=== PATIENT | male | born 1970 | race Caucasian/White ===

== ENCOUNTER 2016-12-24 06:59 | Emergency (ER) | payer BC ==
[2016-12-24 07:10] VITALS: BP 143/88
[2016-12-24] MEDS ORDERED: Ondansetron 4 MG/2 ML SDV IVPUSH ONE (07:23)
[2016-12-24] MEDS ORDERED: Sodium Chloride 0.9% 10 ML Syringe FLUSH PRN (07:23)
[2016-12-24] MEDS ORDERED: LORazepam 2 MG/ML MDV IVPUSH ONE (07:25)
[2016-12-24] MEDS ORDERED: Sodium Chloride 0.9% 1,000 ML IV SCH (07:30)
--- NOTE | 2016-12-24 10:03 | EDM.PDOCBH ---
ED HPI GENERAL MEDICAL PROBLEM - General Chief Complaint: Drug or Alcohol Abuse Stated Complaint: ALCOHOL DETOX Time Seen by Provider: 12/24/16 07:20 Source of Information: Reports: Patient History Limitations: Reports: No Limitations - History of Present Illness INITIAL COMMENTS - FREE TEXT/NARRATIVE: The patient presents with alcohol withdrawal. He is currently doing outpatient treatment for alcohol dependence with [facility]. He had a friend come visit him this weekend and he had a few drinks. He is coming in because he is withdrawing. He has the shakes. He has not drank since yesterday. He has nausea but no vomiting. He has no pain, fever or chills. He is on coumadin for a mechanical heart valve. Onset: Gradual Duration: Day(s): (2) Improves with: Reports: None Worsens with: Reports: None Associated Symptoms: Reports: Nausea/Vomiting. Denies: Chest Pain, Fever/Chills , Shortness of Breath - Related Data Allergies Allergy/AdvReac Type Severity Reaction Status Date / Time No Known Allergies Allergy Verified 12/24/16 07:09 Home Meds: Home Meds Metoprolol Tartrate 50 mg PO BID 11/23/15 [History] Warfarin [Coumadin] 4 mg PO DAILY 11/23/15 [History] Ondansetron [Zofran ODT] 4 mg PO Q6H PRN #20 tab.dis 12/24/16 [Rx] chlordiazePOXIDE [Librium] 50 mg PO TID #24 cap 12/24/16 [Rx] Past Medical History Cardiovascular History: Reports: Heart Valve Replacement Other Cardiovascular History: aortic stenosis, valvular heart disease, aortic regurgitation Other Respiratory History: lung cancer at age 3 Gastrointestinal History: Reports: Colon Polyp Other Gastrointestinal History: globus sensation Genitourinary History: Reports: Dialysis Other Genitourinary History: 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 Kidney was removed. Social & Family History - Tobacco Use Smoking Status *Q: Never Smoker Years of Tobacco use: 30 Packs/Tins Daily: 0.2 Used Tobacco, but Quit: Yes Month Tobacco Last Used: 2008 - Alcohol Use Days Per Week of Alcohol Use: 7 Number of Drinks Per Day: 3 Total Drinks Per Week: 21 - Recreational Drug Use Recreational Drug Use: No Drug Use in Last 12 Months: No Recreational Drug Type: Reports: Methamphetamine Recreational Drug Use Frequency: Not Used In Over 6 Months Recreational Drug Last Use: 2009 ED ROS GENERAL - Review of Systems Review Of Systems: See Below Constitutional: Reports: No Symptoms HEENT: Reports: No Symptoms Respiratory: Reports: No Symptoms Cardiovascular: Reports: No Symptoms Endocrine: Reports: No Symptoms GI/Abdominal: Reports: Nausea. Denies: Abdominal Pain, Vomiting : Reports: No Symptoms Musculoskeletal: Reports: No Symptoms Skin: Reports: No Symptoms Neurological: Reports: Other (Shakey) ED EXAM, BEHAVIORAL HEALTH - Physical Exam Exam: See Below Exam Limited By: No Limitations General Appearance: Alert, No Apparent Distress Ears: Normal External Exam Nose: Normal Inspection Head: Atraumatic, Normocephalic Neck: Normal Inspection Respiratory/Chest: No Respiratory Distress, Lungs Clear, Normal Breath Sounds Cardiovascular: Regular Rate, Rhythm, No Edema, Other (Cli) GI/Abdominal: Soft, Non-Tender, No Organomegaly, No Mass Back Exam: Normal Inspection Extremities: Normal Inspection Neurological: Alert, No Motor/Sensory Deficits, Oriented x 3 COURSE, BEHAVIORAL HEALTH COMP - Course Vital Signs: Last Vital Signs Temp 97.6 F 12/24/16 07:06 Pulse 110 H 12/24/16 07:06 Resp 16 12/24/16 07:06 BP 143/88 H 12/24/16 07:06 Pulse Ox 94 L 12/24/16 07:06 Orders, Labs, Meds: Active Orders 24 hr Category Date Time Status Cardiac Monitoring [RC] . DIRECTED Care 12/24/16 07:24 Active Peripheral IV Care [RC] . DIRECTED Care 12/24/16 07:24 Active Sodium Chloride 0.9% [Normal Saline] 1,000 ml Med 12/24/16 07:30 Active IV .BOLUS Sodium Chloride 0.9% [Saline Flush] Med 12/24/16 07:23 Active 10 ml FLUSH ASDIRECTED PRN ED Antiemetic Medication Reflex [OM.PC] Stat Oth 12/24/16 07:24 Ordered Peripheral IV Insertion Adult [OM.PC] Stat Oth 12/24/16 07:23 Ordered Medication Orders Sodium Chloride (Normal Saline) 1,000 mls @ 1,000 mls/hr IV .BOLUS SHERLY Last Admin: 12/24/16 07:37 Dose: 1,000 mls/hr Sodium Chloride (Saline Flush) 10 ml FLUSH ASDIRECTED PRN PRN Reason: Keep Vein Open Last Admin: 12/24/16 07:39 Dose: 10 ml Laboratory Tests 12/24/16 12/24/16 12/24/16 Range/Units 07:30 07:30 07:30 WBC 10.24 H (4.23-9.07) K/mm3 RBC 4.91 (4.63-6.08) M/mm3 Hgb 15.4 (13.7-17.5) gm/L Hct 44.1 (40.1-51.0) % MCV 89.8 (79.0-92.2) fl MCH 31.4 (25.7-32.2) pg MCHC 34.9 (32.2-35.5) g/dl RDW Std Deviation 47.0 H (35.1-43.9) fL Plt Count 272 (163-337) K/mm3 MPV 10.1 (9.4-12.3) fl Neut % (Auto) 68.3 H (34.0-67.9) % Lymph % (Auto) 19.1 L (21.8-53.1) % Casey % (Auto) 11.7 (5.3-12.2) % Eos % (Auto) 0.4 L (0.8-7.0) Baso % (Auto) 0.4 (0.1-1.2) % Neut # (Auto) 6.99 H (1.78-5.38) K/mm3 Lymph # (Auto) 1.96 (1.32-3.57) K/mm3 Casey # (Auto) 1.20 H (0.30-0.82) K/mm3 Eos # (Auto) 0.04 (0.04-0.54) K/mm3 Baso # (Auto) 0.04 (0.01-0.08) K/mm3 PT 121.1 H* (8.0-13.0) SECONDS INR 9.62 H* Sodium 141 (136-145) mEq/L Potassium 4.4 (3.5-5.1) mEq/L Chloride 99 (98-107) mEq/L Carbon Dioxide 30 (21-32) mEq/L Anion Gap 16.4 H (5-15) BUN 27 H (7-18) mg/dL Creatinine 1.4 H (0.7-1.3) mg/dL Est Cr Clr Drug Dosing 58.59 mL/min Estimated GFR (MDRD) 54 (>60) mL/min BUN/Creatinine Ratio 19.3 H (14-18) Glucose 103 (74-106) mg/dL Calcium 8.5 (8.5-10.1) mg/dL Total Bilirubin 1.2 H (0.2-1.0) mg/dL AST 79 H (15-37) U/L ALT 45 (16-63) U/L Alkaline Phosphatase 66 (46-116) U/L Total Protein 8.3 H (6.4-8.2) g/dl Albumin 4.0 (3.4-5.0) g/dl Globulin 4.3 gm/dL Albumin/Globulin Ratio 0.9 L (1-2) Lipase 87 (73-393) U/L Urine Opiates Screen (NEGATIVE) Ur Buprenorphine Scrn (NEGATIVE) Ur Oxycodone Screen (NEGATIVE) Urine Methadone Screen (NEGATIVE) Ur Propoxyphene Screen (NEGATIVE) Ur Barbiturates Screen (NEGATIVE) Ur Tricyclics Screen (NEGATIVE) Ur Phencyclidine Scrn (NEGATIVE) Ur Amphetamine Screen (NEGATIVE) U Methamphetamines Scrn (NEGATIVE) U Benzodiazepines Scrn (NEGATIVE) U Cocaine Metab Screen (NEGATIVE) U Marijuana (THC) Screen (NEGATIVE) Ethyl Alcohol 0.21 (0.00) gm% 12/24/16 Range/Units 08:50 WBC (4.23-9.07) K/mm3 RBC (4.63-6.08) M/mm3 Hgb (13.7-17.5) gm/L Hct (40.1-51.0) % MCV (79.0-92.2) fl MCH (25.7-32.2) pg MCHC (32.2-35.5) g/dl RDW Std Deviation (35.1-43.9) fL Plt Count (163-337) K/mm3 MPV (9.4-12.3) fl Neut % (Auto) (34.0-67.9) % Lymph % (Auto) (21.8-53.1) % Casey % (Auto) (5.3-12.2) % Eos % (Auto) (0.8-7.0) Baso % (Auto) (0.1-1.2) % Neut # (Auto) (1.78-5.38) K/mm3 Lymph # (Auto) (1.32-3.57) K/mm3 Casey # (Auto) (0.30-0.82) K/mm3 Eos # (Auto) (0.04-0.54) K/mm3 Baso # (Auto) (0.01-0.08) K/mm3 PT (8.0-13.0) SECONDS INR Sodium (136-145) mEq/L Potassium (3.5-5.1) mEq/L Chloride (98-107) mEq/L Carbon Dioxide (21-32) mEq/L Anion Gap (5-15) BUN (7-18) mg/dL Creatinine (0.7-1.3) mg/dL Est Cr Clr Drug Dosing mL/min Estimated GFR (MDRD) (>60) mL/min BUN/Creatinine Ratio (14-18) Glucose (74-106) mg/dL Calcium (8.5-10.1) mg/dL Total Bilirubin (0.2-1.0) mg/dL AST (15-37) U/L ALT (16-63) U/L Alkaline Phosphatase (46-116) U/L Total Protein (6.4-8.2) g/dl Albumin (3.4-5.0) g/dl Globulin gm/dL Albumin/Globulin Ratio (1-2) Lipase (73-393) U/L Urine Opiates Screen Negative (NEGATIVE) Ur Buprenorphine Scrn Negative (NEGATIVE) Ur Oxycodone Screen Negative (NEGATIVE) Urine Methadone Screen Negative (NEGATIVE) Ur Propoxyphene Screen Negative (NEGATIVE) Ur Barbiturates Screen Negative (NEGATIVE) Ur Tricyclics Screen Negative (NEGATIVE) Ur Phencyclidine Scrn Negative (NEGATIVE) Ur Amphetamine Screen Negative (NEGATIVE) U Methamphetamines Scrn Negative (NEGATIVE) U Benzodiazepines Scrn Negative (NEGATIVE) U Cocaine Metab Screen Negative (NEGATIVE) U Marijuana (THC) Screen Negative (NEGATIVE) Ethyl Alcohol (0.00) gm% Medications Generic Name Dose Route Start Last Admin Trade Name Freq PRN Reason Stop Dose Admin Sodium Chloride 1,000 mls @ 1,000 mls/hr 12/24/16 07:30 12/24/16 07:37 Normal Saline IV 1,000 mls/hr .BOLUS SHERLY Administration Sodium Chloride 10 ml 12/24/16 07:23 12/24/16 07:39 Saline Flush FLUSH 10 ml ASDIRECTED PRN Administration Keep Vein Open Discontinued Medications Generic Name Dose Route Start Last Admin Trade Name Freq PRN Reason Stop Dose Admin Lorazepam 1 mg 12/24/16 07:25 12/24/16 07:38 Ativan IVPUSH 12/24/16 07:26 1 mg ONETIME ONE Administration Ondansetron HCl 4 mg 12/24/16 07:23 12/24/16 07:37 Zofran IVPUSH 12/24/16 07:24 4 mg ONETIME ONE Administration Re-Assessment/Re-Exam: I ordered an IV NS 1L bolus, zofran 4mg IV and ativan 1mg IV. His WBC was 10.24. HIs INR was elevated at 9.62. He has a mechanical aortic valve. His creatinine is elevated at 1.4. His total bili is elevated at 1.2. His AST is elevated at 79. His urine drug screen is negative. His ETOH is elevated at 0.21. He says he last drank at 11pm last night. He told me it was later. I will give him some zofran and some librium and he is to follow up with Lee Perez. Departure - Departure Time of Disposition: 10:10 Disposition: Home, Self-Care 01 Condition: Good Clinical Impression: Alcohol abuse, Alcohol intoxication - Discharge Information Prescriptions: Ondansetron [Zofran ODT] 4 mg PO Q6H PRN #20 tab.dis PRN Reason: Nausea/Vomiting chlordiazePOXIDE [Librium] 50 mg PO TID #24 cap Referrals: PCP,None [Primary Care Provider] - Kori Sherwood PA-C [Physician Personal Financial Counselor] - Additional Instructions: Drink plenty of water and gatorade. Do not drink alcohol. Take the zofran every 6 hours as needed for nausea and vomiting. Take the librium 2 pills 3 times per day for 2 days, then 2 pills 2 times per day for 2 days and then 1 pill 2 times per day for 2 days. Follow up with your addictions counselor. Please return if you are worse. - My Orders Last 24 Hours: My Active Orders 12/24/16 07:23 Sodium Chloride 0.9% [Saline Flush] 10 ml FLUSH ASDIRECTED PRN Peripheral IV Insertion Adult [OM.PC] Stat 12/24/16 07:24 Cardiac Monitoring [RC] . DIRECTED Peripheral IV Care [RC] . DIRECTED ED Antiemetic Medication Reflex [OM.PC] Stat 12/24/16 07:30 Sodium Chloride 0.9% [Normal Saline] 1,000 ml IV .BOLUS - Assessment/Plan Last 24 Hours: My Active Orders 12/24/16 07:23 Sodium Chloride 0.9% [Saline Flush] 10 ml FLUSH ASDIRECTED PRN Peripheral IV Insertion Adult [OM.PC] Stat 12/24/16 07:24 Cardiac Monitoring [RC] . DIRECTED Peripheral IV Care [RC] . DIRECTED ED Antiemetic Medication Reflex [OM.PC] Stat 12/24/16 07:30 Sodium Chloride 0.9% [Normal Saline] 1,000 ml IV .BOLUS
== END 2016-12-24 10:26 | disposition home or self-care (01) ==
LOC: JD.ED 06:59
DX: F10.129 Alcohol abuse with intoxication, unspecified (principal); Z79.01 Long term (current) use of anticoagulants; Z95.2 Presence of prosthetic heart valve
CPT/HCPCS: 36415; 80053; 80306; 83690; 85025; 85610; 96361; 96374; 96375; 99285; G0480; J2060; J2405; J7040; J7050; 99284

== ENCOUNTER 2017-02-05 20:40 | Inpatient (IN) | payer BC, MEDICAID ==
[2017-02-05] MEDS ORDERED: Sodium Chloride 0.9% 10 ML Syringe FLUSH PRN (20:55)
[2017-02-05] MEDS ORDERED: Folic Acid 1 MG Tab PO ONE (21:13)
[2017-02-05] MEDS ORDERED: chlordiazePOXIDE 25 MG Cap PO ONE (21:13)
[2017-02-05] MEDS ORDERED: Thiamine 100 MG Tab PO ONE (21:13)
[2017-02-05] MEDS ORDERED: Propranolol 60 MG Cap.ER PO ONE (21:13)
[2017-02-05] MEDS ORDERED: Magnesium Sulfate/Water 2 GM in Premix Bag 1 BAG IV ONE (21:15)
[2017-02-05] MEDS ORDERED: LORazepam 2 MG/ML MDV IVPUSH ONE (21:16)
--- NOTE | 2017-02-05 21:17 | EDM.PDOCBH ---
ED HPI GENERAL MEDICAL PROBLEM - General Chief Complaint: Drug or Alcohol Abuse Stated Complaint: ALCOHOL ISSUES Time Seen by Provider: 02/05/17 20:58 Source of Information: Reports: Patient History Limitations: Reports: Intoxication - History of Present Illness INITIAL COMMENTS - FREE TEXT/NARRATIVE: Patient is a 46-year-old male who presents ED wishing to have help with his alcohol addiction. Patient states she's been drinking alcohol for for the last 4 days. Beverages include beer and fireball. His last drink was approx. 3 hours ago. States he cant do this anymore. He's been placed for inpatient treatment at [facility]. Patient has a history of aortic valve replacement and is on Coumadin. Unknown his last INR. States he does not go to the doctor since he does not have insurance. He wants to be transferred to [facility] for inpatient treatment. Patient states when going through withdrawal he develops tremors. Denies seizure or hallucinations. Patient denies any complaints at this time. - Related Data Allergies Allergy/AdvReac Type Severity Reaction Status Date / Time No Known Allergies Allergy Verified 12/24/16 07:09 Home Meds: Home Meds Famotidine [Pepcid] 20 mg PO BID #60 tablet 02/08/17 [Rx] Folic Acid 1 mg PO DAILY #30 tablet 02/08/17 [Rx] Metoprolol Succinate [Toprol XL] 25 mg PO DAILY #30 tab.er 02/08/17 [Rx] Thiamine [Vitamin B-1] 100 mg PO DAILY #30 tablet 02/08/17 [Rx] Warfarin [Coumadin] 4 mg PO DAILY #30 tablet 02/08/17 [Rx] Past Medical History Cardiovascular History: Reports: Heart Valve Replacement Other Cardiovascular History: aortic stenosis, valvular heart disease, aortic regurgitation Other Respiratory History: lung cancer at age 3 Gastrointestinal History: Reports: Colon Polyp Other Gastrointestinal History: globus sensation Genitourinary History: Reports: Dialysis Other Genitourinary History: 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 Kidney was removed. Social & Family History - Tobacco Use Smoking Status *Q: Never Smoker Years of Tobacco use: 30 Packs/Tins Daily: 0.2 Used Tobacco, but Quit: Yes Month Tobacco Last Used: 2008 Second Hand Smoke Exposure: No - Caffeine Use Caffeine Use: Reports: Coffee - Alcohol Use Days Per Week of Alcohol Use: 7 Number of Drinks Per Day: 6 Total Drinks Per Week: 42 Date of Last Drink: 02/05/17 Time of Last Drink: 17:00 - Recreational Drug Use Recreational Drug Use: No Drug Use in Last 12 Months: No Recreational Drug Type: Reports: Methamphetamine Recreational Drug Use Frequency: Not Used In Over 6 Months Recreational Drug Last Use: 2009 ED ROS GENERAL - Review of Systems Review Of Systems: ROS reveals no pertinent complaints other than HPI. ED EXAM, BEHAVIORAL HEALTH - Physical Exam Exam: See Below Exam Limited By: No Limitations General Appearance: Alert, WD/WN, No Apparent Distress Eye Exam: Bilateral Eye: PERRL Ears: Hearing Grossly Normal Nose: Normal Inspection Throat/Mouth: Normal Inspection, Normal Oropharynx, Normal Voice, No Airway Compromise Neck: Normal Inspection, Supple Respiratory/Chest: No Respiratory Distress, Lungs Clear, Normal Breath Sounds, No Accessory Muscle Use Cardiovascular: Normal Peripheral Pulses, Regular Rate, Rhythm GI/Abdominal: Normal Bowel Sounds, Soft, Non-Tender, No Organomegaly, No Distention Neurological: Alert, Normal Mood/Affect, CN II-XII Intact, Normal Cognition, No Motor/Sensory Deficits, Oriented x 3 Psychiatric: Alert, Normal Affect, Normal Cognition, Normal Mood, Oriented. No : Homicidal Thoughts, Suicidal Plan, Suicidal Thoughts, Auditory Hallucinations , Visual Hallucinations Skin Exam: Warm, Dry, Intact, Normal color COURSE, BEHAVIORAL HEALTH COMP - Course Vital Signs: Last Vital Signs Temp 98.1 F 02/08/17 06:18 Pulse 69 02/08/17 09:35 Resp 16 02/08/17 06:18 BP 118/65 02/08/17 09:35 Pulse Ox 96 02/08/17 06:18 Orders, Labs, Meds: Medication Orders Famotidine (Pepcid) 20 mg PO BID SHERLY Last Admin: 02/08/17 09:18 Dose: 20 mg Admin: 02/07/17 21:35 Dose: Not Given Admin: 02/07/17 09:49 Dose: 20 mg Admin: 02/06/17 21:05 Dose: 20 mg Admin: 02/06/17 08:23 Dose: 20 mg Folic Acid (Folic Acid) 1 mg PO DAILY REPLACED BY [facility] Last Admin: 02/08/17 09:18 Dose: 1 mg Admin: 02/07/17 09:49 Dose: 1 mg Admin: 02/06/17 08:23 Dose: 1 mg Lorazepam (Ativan) 0 mg IVPUSH ASDIRECTED PRN; Protocol PRN Reason: Withdrawal Symptoms Last Admin: 02/06/17 17:52 Dose: 1 mg Admin: 02/06/17 15:58 Dose: 1 mg Admin: 02/06/17 14:45 Dose: 1 mg Metoprolol Succinate (Toprol Xl) 25 mg PO DAILY REPLACED BY [facility] Last Admin: 02/08/17 09:35 Dose: 25 mg Sodium Chloride (Saline Flush) 10 ml FLUSH ASDIRECTED PRN PRN Reason: Keep Vein Open Last Admin: 02/05/17 21:09 Dose: 10 ml Thiamine HCl (Vitamin B-1) 100 mg PO DAILY REPLACED BY [facility] Last Admin: 02/08/17 09:18 Dose: 100 mg Admin: 02/07/17 09:49 Dose: 100 mg Admin: 02/06/17 08:23 Dose: 100 mg Trazodone HCl (Trazodone) 50 mg PO BEDTIME PRN PRN Reason: Insomnia Last Admin: 02/07/17 21:48 Dose: 50 mg Admin: 02/06/17 21:05 Dose: 50 mg Admin: 02/06/17 00:55 Dose: 50 mg Warfarin Sodium (Pharmacy To Dose - Warfarin) 0 dose .XX ASDIRECTED PRN PRN Reason: RX TO DOSE COUMDAIN Warfarin Sodium (Coumadin) 4 mg PO DAILY@1800 REPLACED BY [facility] Stop: 02/08/17 21:00 Laboratory Tests 02/05/17 02/05/17 02/05/17 Range/Units 21:10 21:10 21:10 WBC 6.62 (4.23-9.07) K/mm3 RBC 5.01 (4.63-6.08) M/mm3 Hgb 15.7 (13.7-17.5) gm/L Hct 45.6 (40.1-51.0) % MCV 91.0 (79.0-92.2) fl MCH 31.3 (25.7-32.2) pg MCHC 34.4 (32.2-35.5) g/dl RDW Std Deviation 45.3 H (35.1-43.9) fL Plt Count 311 (163-337) K/mm3 MPV 10.1 (9.4-12.3) fl Neut % (Auto) 50.4 (34.0-67.9) % Lymph % (Auto) 32.5 (21.8-53.1) % Ray % (Auto) 16.0 H (5.3-12.2) % Eos % (Auto) 0.3 L (0.8-7.0) Baso % (Auto) 0.8 (0.1-1.2) % Neut # (Auto) 3.34 (1.78-5.38) K/mm3 Lymph # (Auto) 2.15 (1.32-3.57) K/mm3 Ray # (Auto) 1.06 H (0.30-0.82) K/mm3 Eos # (Auto) 0.02 L (0.04-0.54) K/mm3 Baso # (Auto) 0.05 (0.01-0.08) K/mm3 Manual Slide Review Abnormal smear PT 14.1 H (8.0-13.0) SECONDS INR 1.27 APTT (22-36) SECONDS Sodium 142 (136-145) mEq/L Potassium 3.9 (3.5-5.1) mEq/L Chloride 101 (98-107) mEq/L Carbon Dioxide 30 (21-32) mEq/L Anion Gap 14.9 (5-15) BUN 26 H (7-18) mg/dL Creatinine 1.3 (0.7-1.3) mg/dL Est Cr Clr Drug Dosing 64.45 mL/min Estimated GFR (MDRD) 59 (>60) mL/min BUN/Creatinine Ratio 20.0 H (14-18) Glucose 120 H (74-106) mg/dL Calcium 8.2 L (8.5-10.1) mg/dL Magnesium 2.0 (1.8-2.4) mg/dl Total Bilirubin 0.8 (0.2-1.0) mg/dL AST 103 H (15-37) U/L ALT 55 (16-63) U/L Alkaline Phosphatase 68 (46-116) U/L C-Reactive Protein < 0.2 (<1.0) mg/dL Total Protein 8.1 (6.4-8.2) g/dl Albumin 3.6 (3.4-5.0) g/dl Globulin 4.5 gm/dL Albumin/Globulin Ratio 0.8 L (1-2) Lipase 152 (73-393) U/L TSH 3rd Generation 2.139 (0.358-3.74) uIU/mL Ethyl Alcohol 0.30 (0.00) gm% 02/05/17 Range/Units 21:10 WBC (4.23-9.07) K/mm3 RBC (4.63-6.08) M/mm3 Hgb (13.7-17.5) gm/L Hct (40.1-51.0) % MCV (79.0-92.2) fl MCH (25.7-32.2) pg MCHC (32.2-35.5) g/dl RDW Std Deviation (35.1-43.9) fL Plt Count (163-337) K/mm3 MPV (9.4-12.3) fl Neut % (Auto) (34.0-67.9) % Lymph % (Auto) (21.8-53.1) % Ray % (Auto) (5.3-12.2) % Eos % (Auto) (0.8-7.0) Baso % (Auto) (0.1-1.2) % Neut # (Auto) (1.78-5.38) K/mm3 Lymph # (Auto) (1.32-3.57) K/mm3 Ray # (Auto) (0.30-0.82) K/mm3 Eos # (Auto) (0.04-0.54) K/mm3 Baso # (Auto) (0.01-0.08) K/mm3 Manual Slide Review PT (8.0-13.0) SECONDS INR APTT 29 (22-36) SECONDS Sodium (136-145) mEq/L Potassium (3.5-5.1) mEq/L Chloride (98-107) mEq/L Carbon Dioxide (21-32) mEq/L Anion Gap (5-15) BUN (7-18) mg/dL Creatinine (0.7-1.3) mg/dL Est Cr Clr Drug Dosing mL/min Estimated GFR (MDRD) (>60) mL/min BUN/Creatinine Ratio (14-18) Glucose (74-106) mg/dL Calcium (8.5-10.1) mg/dL Magnesium (1.8-2.4) mg/dl Total Bilirubin (0.2-1.0) mg/dL AST (15-37) U/L ALT (16-63) U/L Alkaline Phosphatase (46-116) U/L C-Reactive Protein (<1.0) mg/dL Total Protein (6.4-8.2) g/dl Albumin (3.4-5.0) g/dl Globulin gm/dL Albumin/Globulin Ratio (1-2) Lipase (73-393) U/L TSH 3rd Generation (0.358-3.74) uIU/mL Ethyl Alcohol (0.00) gm% Medications Generic Name Dose Route Start Last Admin Trade Name Freq PRN Reason Stop Dose Admin Famotidine 20 mg 02/06/17 09:00 02/08/17 09:18 Pepcid PO 20 mg BID SHERLY Administration Folic Acid 1 mg 02/06/17 09:00 02/08/17 09:18 Folic Acid PO 1 mg DAILY SHERLY Administration Lorazepam 0 mg 02/06/17 02:11 02/06/17 17:52 Ativan IVPUSH 1 mg ASDIRECTED PRN Administration Withdrawal Symptoms Protocol Metoprolol Succinate 25 mg 02/08/17 09:00 02/08/17 09:35 Toprol Xl PO 25 mg DAILY SHERLY Administration Sodium Chloride 10 ml 02/05/17 20:55 02/05/17 21:09 Saline Flush FLUSH 10 ml ASDIRECTED PRN Administration Keep Vein Open Thiamine HCl 100 mg 02/06/17 09:00 02/08/17 09:18 Vitamin B-1 PO 100 mg DAILY SHERLY Administration Trazodone HCl 50 mg 02/05/17 23:57 02/07/17 21:48 Trazodone PO 50 mg BEDTIME PRN Administration Insomnia Warfarin Sodium 0 dose 02/06/17 07:00 Pharmacy To Dose - Warfarin .XX ASDIRECTED PRN RX TO DOSE COUMDAIN Warfarin Sodium 4 mg 02/08/17 18:00 Coumadin PO 02/08/17 21:00 DAILY@1800 SHERLY Discontinued Medications Generic Name Dose Route Start Last Admin Trade Name Linda PRN Reason Stop Dose Admin Chlordiazepoxide HCl 25 mg 02/05/17 21:13 02/05/17 21:30 Librium PO 02/05/17 21:14 25 mg ONETIME ONE Administration Chlordiazepoxide HCl 25 mg 02/06/17 09:00 02/07/17 09:49 Librium PO 25 mg BID SHERLY Administration Diphtheria/Tetanus/Acell Pertussis 0.5 ml 02/06/17 10:00 Adacel IM 02/06/17 10:01 .ONCE ONE Diphtheria/Tetanus/Acell Pertussis 0.5 ml 02/08/17 11:45 02/08/17 11:43 Adacel IM 02/08/17 11:46 0.5 ml .ONCE ONE Administration Enoxaparin Sodium 70 mg 02/05/17 22:33 02/05/17 22:55 Lovenox SUBCUT 02/05/17 22:34 70 mg ONETIME ONE Administration Enoxaparin Sodium 60 mg 02/06/17 11:00 02/08/17 09:34 Lovenox SUBCUT Not Given BID SHERLY Folic Acid 1 mg 02/05/17 21:13 02/05/17 21:30 Folic Acid PO 02/05/17 21:14 1 mg ONETIME ONE Administration Magnesium Sulfate 2 gm/ Premix 50 mls @ 25 mls/hr 02/05/17 21:15 02/05/17 21: 31 IV 02/05/17 23:14 25 mls/hr ONETIME ONE Administration Sodium Chloride 1,000 mls @ 100 mls/hr 02/05/17 22:30 02/07/17 04:48 Normal Saline IV 100 mls/hr ASDIRECTED SHERLY Administration Lorazepam 1 mg 02/05/17 21:16 02/05/17 21:30 Ativan IVPUSH 02/05/17 21:17 1 mg ONETIME ONE Administration Metoprolol Succinate 50 mg 02/06/17 09:00 02/07/17 09:50 Toprol Xl PO Not Given DAILY REPLACED BY [facility] Propranolol HCl 60 mg 02/05/17 21:13 02/05/17 21:30 Inderal La PO 02/05/17 21:14 60 mg ONETIME ONE Administration Thiamine HCl 100 mg 02/05/17 21:13 02/05/17 21:30 Vitamin B-1 PO 02/05/17 21:14 100 mg ONETIME ONE Administration Warfarin Sodium 6 mg 02/06/17 18:00 02/06/17 18:36 Coumadin PO 6 mg DAILY@1800 SHERLY Administration Warfarin Sodium 4 mg 02/07/17 18:00 02/07/17 17:04 Coumadin PO 02/07/17 21:00 4 mg DAILY@1800 SHERLY Administration Re-Assessment/Re-Exam: Peripheral IV started. Initial labs and studies include CBC, chem 14, CRP, urine drug tox, serum etoh, PT/INR, lipase, magnesium, TSH, UA, and EKG. Patient complainig of feeling anxious/tremulous withdrawing from the alcohol. Highly unlikely but will treat with Ativan 1 mg IVP, Librium 25 mg by mouth, folic acid 1 mg by mouth, magnesium 2 g IV, Inderal 60 mg by mouth, and thiamin 100 mg by mouth. EKG: Sinus rhythm at a rate of [address] changes noted. Labs reviewed: White blood cell count 6.62, hemoglobin 15.7, INR is 1.27 subtherapeutic, so 42, potassium 3.9, creatinine 1.3, glucose 120, AST 103, AST 55, CRP within normal limits, lipase 1.2, TSH of 2.1, magnesium 2.0, and serum EtOH of 0.3. UA has not been obtained. CIWAA 7 per nursing. [address] Schmidt, senior staff consultant hospitalists. She has accepted the patient. Patient will be admitted to inpatient med/surg with telemetry. Requests completion of CIWAA for baseline and NS 100mls/hr. MCG being completed. Patients INR is Subtherapeutic, goal is 2.5. Patient takes coumadin 4mg daily. He has been taking sporadically. Ordered lovenox 70mg SQ to bridge until therapeutic. Orders for admission will be placed when ready. Departure - Departure Time of Disposition: 22:28 Disposition: Admitted As Inpatient 65 Condition: Fair Clinical Impression: Alcohol abuse, Alcohol intoxication - Discharge Information
[2017-02-05] MEDS ORDERED: Enoxaparin 80 MG/0.8 ML Syringe SUBCUT ONE (22:33)
[2017-02-05] MEDS: Sodium Chloride 0.9% 1,000 ML IV SCH (22:52)
[2017-02-06] MEDS: traZODone 50 MG Tab PO PRN ×2 (00:55→21:05)
--- NOTE | 2017-02-06 07:04 | PCM.PN ---
- General Info Date of Service: 02/06/17 Functional Status: Reports: Pain Controlled, Tolerating Diet (clear liquid this morning; will advance), Ambulating, Urinating. Denies: New Symptoms - Review of Systems General: Reports: No Symptoms HEENT: Reports: No Symptoms Pulmonary: Reports: No Symptoms Cardiovascular: Reports: No Symptoms Gastrointestinal: Reports: No Symptoms Genitourinary: Reports: No Symptoms Musculoskeletal: Reports: No Symptoms Skin: Reports: No Symptoms Neurological: Reports: No Symptoms Psychiatric: Reports: Anxiety, Agitation (minimal) - Patient Data Vitals - Most Recent: Last Vital Signs Temp 98.2 F 02/05/17 23:48 Pulse 64 02/05/17 23:48 Resp 18 02/05/17 23:48 BP 122/77 02/05/17 23:48 Pulse Ox 95 02/05/17 23:48 Weight - Most Recent: 137 lb 12.8 oz I&O - Last 24 Hours: Intake & Output 02/05/17 02/05/17 02/06/17 14:59 22:59 06:59 Intake Total 748 Output Total 0 Balance 748 Med Orders - Current: Current Medications Chlordiazepoxide HCl (Librium) 25 mg PO BID SHERLY Famotidine (Pepcid) 20 mg PO BID SHERLY Sodium Chloride (Normal Saline) 1,000 mls @ 100 mls/hr IV ASDIRECTED SHERLY Last Admin: 02/05/17 22:52 Dose: 100 mls/hr Lorazepam (Ativan) 0 mg IVPUSH ASDIRECTED PRN; Protocol PRN Reason: Withdrawal Symptoms Metoprolol Succinate (Toprol Xl) 50 mg PO DAILY SHERLY Sodium Chloride (Saline Flush) 10 ml FLUSH ASDIRECTED PRN PRN Reason: Keep Vein Open Last Admin: 02/05/17 21:09 Dose: 10 ml Trazodone HCl (Trazodone) 50 mg PO BEDTIME PRN PRN Reason: Insomnia Last Admin: 02/06/17 00:55 Dose: 50 mg Warfarin Sodium (Pharmacy To Dose - Warfarin) 1 dose .XX ASDIRECTED SHERLY Warfarin Sodium (Coumadin) 4 mg PO DAILY SHERLY Discontinued Medications Chlordiazepoxide HCl (Librium) 25 mg PO ONETIME ONE Stop: 02/05/17 21:14 Last Admin: 02/05/17 21:30 Dose: 25 mg Enoxaparin Sodium (Lovenox) 70 mg SUBCUT ONETIME ONE Stop: 02/05/17 22:34 Last Admin: 02/05/17 22:55 Dose: 70 mg Folic Acid (Folic Acid) 1 mg PO ONETIME ONE Stop: 02/05/17 21:14 Last Admin: 02/05/17 21:30 Dose: 1 mg Magnesium Sulfate 2 gm/ Premix 50 mls @ 25 mls/hr IV ONETIME ONE Stop: 02/05/17 23:14 Last Admin: 02/05/17 21:31 Dose: 25 mls/hr Lorazepam (Ativan) 1 mg IVPUSH ONETIME ONE Stop: 02/05/17 21:17 Last Admin: 02/05/17 21:30 Dose: 1 mg Propranolol HCl (Inderal La) 60 mg PO ONETIME ONE Stop: 02/05/17 21:14 Last Admin: 02/05/17 21:30 Dose: 60 mg Thiamine HCl (Vitamin B-1) 100 mg PO ONETIME ONE Stop: 02/05/17 21:14 Last Admin: 02/05/17 21:30 Dose: 100 mg - Exam Quality Assessment: DVT Prophylaxis General: Alert, Oriented, Cooperative, No Acute Distress HEENT: Pupils Equal, Pupils Reactive, EOMI, Mucous Membr. Moist/[place] Neck: Supple Lungs: Clear to Auscultation, Normal Respiratory Effort Cardiovascular: Regular Rate, Regular Rhythm GI/Abdominal Exam: Normal Bowel Sounds, Soft, Non-Tender (Male) Exam: Deferred Back Exam: Normal Inspection Extremities: Normal Inspection - My Orders Last 24 Hours: My Active Orders 02/06/17 06:53 INR,PT,PROTHROMBIN TIME [COAG] Routine 02/06/17 06:56 Consult to Physician [CONS] Routine 02/06/17 06:57 Notify Provider Consults [RC] ASDIRECTED 02/06/17 07:00 Warfarin Pharmacy to Dose [Pharmacy to Dose - Warfarin] 1 dose .XX ASDIRECTED 02/06/17 09:00 Famotidine [Pepcid] 20 mg PO BID Metoprolol Succinate [Toprol XL] 50 mg PO DAILY Warfarin [Coumadin] 4 mg PO DAILY
--- NOTE | 2017-02-06 07:05 | PCM.HP ---
<Courtney Sarkar M - Last Filed: 02/06/17 11:03> H&P History of Present Illness - General Date of Service: 02/06/17 Admit Problem/Dx: Admission Diagnosis/Problem Admission Diagnosis/Problem Alcohol withdrawal syndrome Rocky is a 46yo male who presented to ER last evening, intoxicated and asking for help with alcohol detoxification. KALEE was 0.3. He has been on a "robert" for 4 days drinking "fireball". He is requesting help for detox and for rehab. He has never had alcohol withdrawl seizures. He has been to rehab in the past. PMH is significant for AVR, on chronic coumadin therapy which he admits he does not take correctly, especially when he is drinking. INR is subtherapeutic at 1.2. 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 Source of Information: Patient, Old Records History Limitations: Reports: No Limitations, Respiratory Distress - Related Data Allergies/Adverse Reactions: Allergies Allergy/AdvReac Type Severity Reaction Status Date / Time No Known Allergies Allergy Verified 12/24/16 07:09 Home Medications: Home Meds Warfarin [Coumadin] 4 mg PO DAILY 11/23/15 [History] Metoprolol Succinate [Toprol XL] 50 mg PO DAILY 02/06/17 [History] Past Medical History Cardiovascular History: Reports: Heart Valve Replacement Other Cardiovascular History: aortic stenosis, valvular heart disease, aortic regurgitation Other Respiratory History: lung cancer at age 3 Gastrointestinal History: Reports: Colon Polyp Other Gastrointestinal History: globus sensation Genitourinary History: Reports: Dialysis Other Genitourinary History: Wilm's tumor at age 3, left kidney removed. 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 Kidney was removed. Social & Family History - Family History Family Medical History: Noncontributory - Tobacco Use Smoking Status *Q: Former Smoker Years of Tobacco use: 30 Packs/Tins Daily: 0.2 Used Tobacco, but Quit: Yes Month Tobacco Last Used: 10 years Second Hand Smoke Exposure: No - Caffeine Use Caffeine Use: Reports: Coffee - Alcohol Use Days Per Week of Alcohol Use: 4 Number of Drinks Per Day: 10 Total Drinks Per Week: 40 Date of Last Drink: 02/05/17 Time of Last Drink: 19:00 - Recreational Drug Use Recreational Drug Use: No Drug Use in Last 12 Months: No Recreational Drug Type: Reports: Methamphetamine Recreational Drug Use Frequency: Not Used In Over 6 Months Recreational Drug Last Use: 2009 H&P Review of Systems - Review of Systems: Review Of Systems: See Below General: Reports: No Symptoms HEENT: Reports: No Symptoms Pulmonary: Reports: No Symptoms Cardiovascular: Reports: No Symptoms Gastrointestinal: Reports: No Symptoms Genitourinary: Reports: No Symptoms Musculoskeletal: Reports: No Symptoms Skin: Reports: No Symptoms Psychiatric: Reports: Anxiety, Agitation (minimal), Cravings. Denies: Hallucinations, Suicidal Ideation Neurological: Reports: Headache Exam - Exam Exam: See Below - Vital Signs Vital Signs: Last Vital Signs Temp 98.2 F 02/05/17 23:48 Pulse 64 02/05/17 23:48 Resp 18 02/05/17 23:48 BP 122/77 02/05/17 23:48 Pulse Ox 95 02/05/17 23:48 Weight: 62.505 kg - Exam Quality Assessment: DVT Prophylaxis General: Alert, Oriented, Cooperative HEENT: Conjunctiva Clear, EOMI, Hearing Intact, Mucosa Moist & [place], Pupils Equal Neck: Supple Lungs: Clear to Auscultation, Normal Respiratory Effort, Decreased Breath Sounds (bases) Cardiovascular: Regular Rate, Regular Rhythm GI/Abdominal Exam: Normal Bowel Sounds, Soft, Non-Tender (Male) Exam: Deferred Rectal (Males) Exam: Deferred Extremities: Normal Inspection, No Pedal Edema Peripheral Pulses: 2+: Dorsalis Pedis (L), Dorsalis Pedis (R) Skin: Warm, Dry Neurological: Cranial Nerves Intact Neuro Extensive - Mental Status: Alert, Oriented x3, Normal Mood/Affect, Normal Cognition, Memory Intact Psychiatric: Alert, Normal Affect, Anxious (mildly) - Patient Data Result Diagrams: 02/06/17 06:44 02/06/17 06:44 *Q Meaningful Use (ADM) - VTE *Q VTE Criteria *Q: - Stroke *Q Stroke Criteria *Q: - AMI *Q AMI Criteria *Q: - Problem List (1) Alcohol abuse SNOMED Code(s): 93110901 ICD Code: F10.10 - ALCOHOL ABUSE, UNCOMPLICATED Status: Chronic Priority : High Current Visit: Yes Onset Date: 07/23/14 (2) Alcohol intoxication SNOMED Code(s): 76138356 ICD Code: F10.129 - ALCOHOL ABUSE WITH INTOXICATION, UNSPECIFIED Status: Acute Priority: High Current Visit: Yes (3) Subtherapeutic international normalized ratio (INR) SNOMED Code(s): 360988437 ICD Code: R79.1 - ABNORMAL COAGULATION PROFILE Status: Acute Priority: High Current Visit: Yes (4) History of aortic valve replacement SNOMED Code(s): 1975216351250, 165576057, 9628648235898 ICD Code: Z95.2 - PRESENCE OF PROSTHETIC HEART VALVE Status: Chronic Priority: Medium Current Visit: Yes Problem List Initiated/Reviewed/Updated: Yes Orders Last 24hrs: Active Orders 24 hr Category Date Time Status Admission Status [Patient Status] [ADT] Routine ADT 02/05/17 23:10 Active Activity as Tolerated [RC] .Routine Care 02/05/17 23:36 Active Aspiration Precautions [RC] QSHIFT Care 02/05/17 23:29 Active CIWAA Assessment [RC] Q4HR Care 02/05/17 23:29 Active Head of Bed Elevation [RC] ASDIRECTED Care 02/05/17 23:29 Active Notify Provider Consults [RC] ASDIRECTED Care 02/06/17 06:57 Ordered Consult to Physician [CONS] Routine Cons 02/06/17 06:56 Ordered Full Liquid Diet [DIET] Diet 02/06/17 Breakfast Active BASIC METABOLIC PANEL,BMP [CHEM] Routine Lab 02/06/17 05:00 Ordered C-REACTIVE PROTEIN [CHEM] Routine Lab 02/06/17 05:00 Ordered CBC WITH AUTO DIFF [HEME] Routine Lab 02/06/17 05:00 Ordered INR,PT,PROTHROMBIN TIME [COAG] Routine Lab 02/06/17 06:53 Ordered MAGNESIUM [CHEM] Routine Lab 02/06/17 05:00 Ordered TSH [CHEM] Routine Lab 02/06/17 05:00 Ordered Famotidine [Pepcid] Med 02/06/17 09:00 Ordered 20 mg PO BID LORazepam [Ativan] Med 02/06/17 02:11 Active See Protocol IVPUSH ASDIRECTED PRN Metoprolol Succinate [Toprol XL] Med 02/06/17 09:00 Ordered 50 mg PO DAILY Warfarin Pharmacy to Dose [Pharmacy to Dose - Warfarin] Med 02/06/17 07:00 Ordered 1 dose .XX ASDIRECTED Warfarin [Coumadin] Med 02/06/17 09:00 Ordered 4 mg PO DAILY chlordiazePOXIDE [Librium] Med 02/06/17 09:00 Active 25 mg PO BID traZODone Med 02/05/17 23:57 Active 50 mg PO BEDTIME PRN Seizure Precautions [OM.PC] Routine Oth 02/05/17 23:29 Ordered Resuscitation Status Routine Resus Stat 02/05/17 23:36 Ordered Medication Orders Chlordiazepoxide HCl (Librium) 25 mg PO BID SHERLY Famotidine (Pepcid) 20 mg PO BID SHERLY Sodium Chloride (Normal Saline) 1,000 mls @ 100 mls/hr IV ASDIRECTED SHERLY Last Admin: 02/05/17 22:52 Dose: 100 mls/hr Lorazepam (Ativan) 0 mg IVPUSH ASDIRECTED PRN; Protocol PRN Reason: Withdrawal Symptoms Metoprolol Succinate (Toprol Xl) 50 mg PO DAILY SHERLY Sodium Chloride (Saline Flush) 10 ml FLUSH ASDIRECTED PRN PRN Reason: Keep Vein Open Last Admin: 02/05/17 21:09 Dose: 10 ml Trazodone HCl (Trazodone) 50 mg PO BEDTIME PRN PRN Reason: Insomnia Last Admin: 02/06/17 00:55 Dose: 50 mg Warfarin Sodium (Pharmacy To Dose - Warfarin) 1 dose .XX ASDIRECTED SHERLY Warfarin Sodium (Coumadin) 4 mg PO DAILY SHERLY Assessment/Plan Comment:: I/P: Alcohol intoxication- acute, with chronic alcohol dependence KALEE 0.3 -Hydration, follow labs -last drink 3 hours prior to seeking help at the ED; can expect withdrawl in next 48-72 hours. -CIWAA protocol, ativan, librium -Psychiatry consult: Dr. Bazzi recommends AA and spiritual care per consult this morning. Patient came to ER/Hospital seeking more help than he is able to do for himself, clearly he needs more than community resources to help him at this time. Coming to ER is his cry for help. -Will consult Yossi KRAUSE for further input. Subtherapeutic INR on Chronic coumadin therapy -Lovenox to bridge until therapeutic -Pharmacy to dose coumadin -Daily INR Chronic: HTN- cont home meds Hx Aortic Valve Replacement- on coumadin; as above -admits to not taking coumadin as rx'd--this can be life threatening for him , especially when mixing with alcohol. He is aware of this potential danger of this situation. 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 Other: DVT/GI prophylax CM/SW for assist with DC plan Patient is full code status <Lyric Schmidt - Last Filed: 02/06/17 13:25> H&P History of Present Illness - General Admit Problem/Dx: Admission Diagnosis/Problem Admission Diagnosis/Problem Alcohol withdrawal syndrome Exam - Vital Signs Vital Signs: Last Vital Signs Temp 36.7 C 02/06/17 11:02 Pulse 62 02/06/17 11:02 Resp 16 02/06/17 11:02 BP 108/58 L 02/06/17 11:02 Pulse Ox 94 L 02/06/17 11:02 - Patient Data Lab Results Last 24 hrs: Laboratory Results - last 24 hr 02/06/17 02/06/17 02/06/17 Range/Units 06:44 06:44 06:44 WBC 6.51 (4.23-9.07) K/mm3 RBC 4.52 L (4.63-6.08) M/mm3 Hgb 14.4 (13.7-17.5) gm/L Hct 42.0 (40.1-51.0) % MCV 92.9 H (79.0-92.2) fl MCH 31.9 (25.7-32.2) pg MCHC 34.3 (32.2-35.5) g/dl RDW Std Deviation 46.3 H (35.1-43.9) fL Plt Count 293 (163-337) K/mm3 MPV 10.1 (9.4-12.3) fl Neut % (Auto) 43.1 (34.0-67.9) % Lymph % (Auto) 39.0 (21.8-53.1) % [place] % (Auto) 15.7 H (5.3-12.2) % Eos % (Auto) 0.9 (0.8-7.0) Baso % (Auto) 1.1 (0.1-1.2) % Neut # (Auto) 2.81 (1.78-5.38) K/mm3 Lymph # (Auto) 2.54 (1.32-3.57) K/mm3 [place] # (Auto) 1.02 H (0.30-0.82) K/mm3 Eos # (Auto) 0.06 (0.04-0.54) K/mm3 Baso # (Auto) 0.07 (0.01-0.08) K/mm3 Manual Slide Review Normal smear PT 14.8 H (8.0-13.0) SECONDS INR 1.33 Sodium 140 (136-145) mEq/L Potassium 4.3 (3.5-5.1) mEq/L Chloride 104 (98-107) mEq/L Carbon Dioxide 27 (21-32) mEq/L Anion Gap 13.3 (5-15) BUN 26 H (7-18) mg/dL Creatinine 1.2 (0.7-1.3) mg/dL Est Cr Clr Drug Dosing 67.28 mL/min Estimated GFR (MDRD) > 60 (>60) mL/min BUN/Creatinine Ratio 21.7 H (14-18) Glucose 84 (74-106) mg/dL Calcium 7.7 L (8.5-10.1) mg/dL Magnesium 2.3 (1.8-2.4) mg/dl C-Reactive Protein < 0.2 (<1.0) mg/dL TSH 3rd Generation 0.862 (0.358-3.74) uIU/mL Urine Color (Yellow) Urine Appearance (Clear) Urine pH (5.0-8.0) Ur Specific [place] (1.005-1.030) Urine Protein (Negative) Urine Glucose (UA) (Negative) Urine Ketones (Negative) Urine Occult Blood (Negative) Urine Nitrite (Negative) Urine Bilirubin (Negative) Urine Urobilinogen (0.2-1.0) Ur Leukocyte Esterase (Negative) Urine RBC (0-5) /hpf Urine WBC (0-5) /hpf Ur Epithelial Cells (0-5) /hpf Amorphous Sediment (NOT SEEN) /hpf Urine Bacteria (FEW) /hpf Urine Mucus (FEW) /hpf Urine Opiates Screen (NEGATIVE) Ur Buprenorphine Scrn (NEGATIVE) Ur Oxycodone Screen (NEGATIVE) Urine Methadone Screen (NEGATIVE) Ur Propoxyphene Screen (NEGATIVE) Ur Barbiturates Screen (NEGATIVE) Ur Tricyclics Screen (NEGATIVE) Ur Phencyclidine Scrn (NEGATIVE) Ur Amphetamine Screen (NEGATIVE) U Methamphetamines Scrn (NEGATIVE) U Benzodiazepines Scrn (NEGATIVE) U Cocaine Metab Screen (NEGATIVE) U Marijuana (THC) Screen (NEGATIVE) 02/06/17 02/06/17 Range/Units 11:00 11:00 WBC (4.23-9.07) K/mm3 RBC (4.63-6.08) M/mm3 Hgb (13.7-17.5) gm/L Hct (40.1-51.0) % MCV (79.0-92.2) fl MCH (25.7-32.2) pg MCHC (32.2-35.5) g/dl RDW Std Deviation (35.1-43.9) fL Plt Count (163-337) K/mm3 MPV (9.4-12.3) fl Neut % (Auto) (34.0-67.9) % Lymph % (Auto) (21.8-53.1) % [place] % (Auto) (5.3-12.2) % Eos % (Auto) (0.8-7.0) Baso % (Auto) (0.1-1.2) % Neut # (Auto) (1.78-5.38) K/mm3 Lymph # (Auto) (1.32-3.57) K/mm3 [place] # (Auto) (0.30-0.82) K/mm3 Eos # (Auto) (0.04-0.54) K/mm3 Baso # (Auto) (0.01-0.08) K/mm3 Manual Slide Review PT (8.0-13.0) SECONDS INR Sodium (136-145) mEq/L Potassium (3.5-5.1) mEq/L Chloride (98-107) mEq/L Carbon Dioxide (21-32) mEq/L Anion Gap (5-15) BUN (7-18) mg/dL Creatinine (0.7-1.3) mg/dL Est Cr Clr Drug Dosing mL/min Estimated GFR (MDRD) (>60) mL/min BUN/Creatinine Ratio (14-18) Glucose (74-106) mg/dL Calcium (8.5-10.1) mg/dL Magnesium (1.8-2.4) mg/dl C-Reactive Protein (<1.0) mg/dL TSH 3rd Generation (0.358-3.74) uIU/mL Urine Color Yellow (Yellow) Urine Appearance Cloudy H (Clear) Urine pH 6.5 (5.0-8.0) Ur Specific [place] 1.025 (1.005-1.030) Urine Protein 1+ H (Negative) Urine Glucose (UA) Negative (Negative) Urine Ketones Negative (Negative) Urine Occult Blood 2+ H (Negative) Urine Nitrite Negative (Negative) Urine Bilirubin Negative (Negative) Urine Urobilinogen 1.0 (0.2-1.0) Ur Leukocyte Esterase Negative (Negative) Urine RBC 5-10 H (0-5) /hpf Urine WBC 0-5 (0-5) /hpf Ur Epithelial Cells 0-5 (0-5) /hpf Amorphous Sediment Many H (NOT SEEN) /hpf Urine Bacteria Few (FEW) /hpf Urine Mucus Few (FEW) /hpf Urine Opiates Screen Negative (NEGATIVE) Ur Buprenorphine Scrn Negative (NEGATIVE) Ur Oxycodone Screen Negative (NEGATIVE) Urine Methadone Screen Negative (NEGATIVE) Ur Propoxyphene Screen Negative (NEGATIVE) Ur Barbiturates Screen Negative (NEGATIVE) Ur Tricyclics Screen Negative (NEGATIVE) Ur Phencyclidine Scrn Negative (NEGATIVE) Ur Amphetamine Screen Negative (NEGATIVE) U Methamphetamines Scrn Negative (NEGATIVE) U Benzodiazepines Scrn Presumptive positive H (NEGATIVE) U Cocaine Metab Screen Negative (NEGATIVE) U Marijuana (THC) Screen Negative (NEGATIVE) Result Diagrams: 02/06/17 06:44 02/06/17 06:44 *Q Meaningful Use (ADM) - VTE *Q VTE Criteria *Q: - Stroke *Q Stroke Criteria *Q: - AMI *Q AMI Criteria *Q: Orders Last 24hrs: Active Orders 24 hr Category Date Time Status Admission Status [Patient Status] [ADT] Routine ADT 02/05/17 23:10 Active Activity as Tolerated [RC] .Routine Care 02/05/17 23:36 Active Aspiration Precautions [RC] QSHIFT Care 02/05/17 23:29 Active CIWAA Assessment [RC] Q4HR Care 02/05/17 23:29 Active Communication Order [RC] DAILY Care 02/06/17 07:42 Active Head of Bed Elevation [RC] ASDIRECTED Care 02/05/17 23:29 Active Notify Provider Consults [RC] ASDIRECTED Care 02/06/17 06:57 Active Vaccines to be Administered [RC] PER UNIT ROUTINE Care 02/06/17 09:18 Active Consult for Substance Abuse [CONS] Routine Cons 02/06/17 10:39 Active Consult to Physician [CONS] Routine Cons 02/06/17 06:56 Active Consult to Spiritual Care [CONS] Routine Cons 02/06/17 07:43 Active Heart Healthy Diet [DIET] Diet 02/06/17 Lunch Active INR,PT,PROTHROMBIN TIME [COAG] AM Lab 02/07/17 05:11 Ordered INR,PT,PROTHROMBIN TIME [COAG] AM Lab 02/08/17 05:11 Ordered INR,PT,PROTHROMBIN TIME [COAG] AM Lab 02/09/17 05:11 Ordered INR,PT,PROTHROMBIN TIME [COAG] AM Lab 02/10/17 05:11 Ordered INR,PT,PROTHROMBIN TIME [COAG] AM Lab 02/11/17 05:11 Ordered INR,PT,PROTHROMBIN TIME [COAG] AM Lab 02/12/17 05:11 Ordered Enoxaparin [Lovenox] Med 02/06/17 11:00 Active 60 mg SUBCUT BID Famotidine [Pepcid] Med 02/06/17 09:00 Active 20 mg PO BID Folic Acid Med 02/06/17 09:00 Active 1 mg PO DAILY LORazepam [Ativan] Med 02/06/17 02:11 Active See Protocol IVPUSH ASDIRECTED PRN Metoprolol Succinate [Toprol XL] Med 02/06/17 09:00 Active 50 mg PO DAILY Thiamine [Vitamin B-1] Med 02/06/17 09:00 Active 100 mg PO DAILY Warfarin Pharmacy to Dose [Pharmacy to Dose - Warfarin] Med 02/06/17 07:00 Active 0 dose .XX ASDIRECTED PRN Warfarin [Coumadin] Med 02/06/17 18:00 Active 6 mg PO DAILY@1800 chlordiazePOXIDE [Librium] Med 02/06/17 09:00 Active 25 mg PO BID traZODone Med 02/05/17 23:57 Active 50 mg PO BEDTIME PRN Seizure Precautions [OM.PC] Routine Oth 02/05/17 23:29 Ordered Resuscitation Status Routine Resus Stat 02/05/17 23:36 Ordered Medication Orders Chlordiazepoxide HCl (Librium) 25 mg PO BID [facility] Last Admin: 02/06/17 08:23 Dose: 25 mg Enoxaparin Sodium (Lovenox) 60 mg SUBCUT BID [facility] Last Admin: 02/06/17 11:34 Dose: 60 mg Famotidine (Pepcid) 20 mg PO BID [facility] Last Admin: 02/06/17 08:23 Dose: 20 mg Folic Acid (Folic Acid) 1 mg PO DAILY [facility] Last Admin: 02/06/17 08:23 Dose: 1 mg Sodium Chloride (Normal Saline) 1,000 mls @ 100 mls/hr IV ASDIRECTED [facility] Last Admin: 02/06/17 08:23 Dose: 100 mls/hr Infusion: 02/06/17 08:23 Dose: 100 mls/hr Admin: 02/05/17 22:52 Dose: 100 mls/hr Lorazepam (Ativan) 0 mg IVPUSH ASDIRECTED PRN; Protocol PRN Reason: Withdrawal Symptoms Metoprolol Succinate (Toprol Xl) 50 mg PO DAILY [facility] Last Admin: 02/06/17 08:24 Dose: Sodium Chloride (Saline Flush) 10 ml FLUSH ASDIRECTED PRN PRN Reason: Keep Vein Open Last Admin: 02/05/17 21:09 Dose: 10 ml Thiamine HCl (Vitamin B-1) 100 mg PO DAILY [facility] Last Admin: 02/06/17 08:23 Dose: 100 mg Trazodone HCl (Trazodone) 50 mg PO BEDTIME PRN PRN Reason: Insomnia Last Admin: 02/06/17 00:55 Dose: 50 mg Warfarin Sodium (Pharmacy To Dose - Warfarin) 0 dose .XX ASDIRECTED PRN PRN Reason: RX TO DOSE COUMDAIN Warfarin Sodium (Coumadin) 6 mg PO DAILY@1800 [facility] Assessment/Plan Comment:: Substance abuse consult, patient requested help with his long standing addiction.
[2017-02-06] MEDS: Sodium Chloride 0.9% 1,000 ML IV SCH ×2 (08:23→18:10)
[2017-02-06] MEDS: chlordiazePOXIDE 25 MG Cap PO SCH ×2 (08:23→21:05)
[2017-02-06] MEDS: Folic Acid 1 MG Tab PO SCH (08:23)
[2017-02-06] MEDS: Thiamine 100 MG Tab PO SCH (08:23)
[2017-02-06] MEDS: Famotidine 20 MG Tab PO SCH ×2 (08:23→21:05)
[2017-02-06] MEDS: Metoprolol Succinate 50 MG Tab.ER PO SCH (08:24)
[2017-02-06] MEDS ORDERED: Diphtheria,Pertussis(Acell),Tetanus Vaccine 0.5 ML SDV IM ONE (10:00)
[2017-02-06] MEDS: Enoxaparin 60 MG/0.6 ML Syringe SUBCUT SCH ×2 (11:34→21:16)
[2017-02-06] MEDS: LORazepam 2 MG/ML MDV IVPUSH PRN ×3 (14:45→17:52)
--- NOTE | 2017-02-06 21:53 | CONS ---
CONSULTING PHYSICIAN: Micah Bazzi MD DATE OF CONSULTATION: 02/06/2017 A 60-minute inpatient clinical event. IDENTIFICATION: The patient is a 46-year-old male, who is admitted to the inpatient medical unit at [facility] in [place], [place], on 02/05/2017. He is seen today for psychiatric consultation. CHIEF COMPLAINT: "I just drink too much." HISTORY OF PRESENT ILLNESS: The patient is a 46-year-old male, who reports that he has been drinking excessively for sometime now. He states that he will have bouts of sobriety but then he relapses. He states that he is a binge drinker and he drinks heavily, perhaps 1-2 times a month up to 4 days at a time. He states he drinks "beer and fireballs" but is unable to give the amount just stating "trust me, it is just a lot." The patient states that he has really been struggling with his alcohol addiction. He states he has gone through treatment but "it has not helped" and he is wondering about getting medically stabilized and getting plugged into alcoholics anonymous because he states he needs something "more long-term." He states "when I am straight, I am great. I do not have any other issues" and denies any issues with depression or anxiety. He denies any suicidal or homicidal. Denies any psychotic, delusional, or paranoid symptoms. He denies any illicit substances complicating his clinical picture. MEDICATIONS: At the time of presentation: 1. Coumadin. 2. Metoprolol 50 mg daily. ALLERGIES: No known drug allergies. PAST MEDICAL HISTORY: 1. Status post aortic valve replacement. 2. History of hepatic cancer, currently in remission. 3. 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 REVIEW OF SYSTEMS: Aside from cardiovascular, GI, and nephrologic, all other major organ systems are negative at this point in time for acute difficulties or complications. FAMILY, PSYCHIATRIC, AND CD HISTORY: The patient denies past psychiatric and CD history. The patient denies any previous psychiatric hospitalizations. Reports chemical dependency treatments in the past at [facility] and then 1 treatment at [facility] back in 2014. Denies any previous suicide attempts, self-injurious behaviors, or eating disorder history. Denies any DWIs. Has been drinking since his teen years. His longest sobriety was for 4-1/2 years from [id number], but the patient minimizes his period of sobriety because "I was locked up" at that time, so he states he did not have the chance to drink up. He has been to AA in the past and feels this might be a good resource. Denies any past psychiatric or medication history. SOCIAL HISTORY: The patient is born and raised in [facility], has 1 sister. He is the oldest of 2 siblings. The patient's parents were throughout his childhood and adolescence. Father worked for the [employer], mother worked for [employer]. The patient's highest level of education is high school diploma. 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 He has never been , not involved in any current relationship. He does not have any children. He currently lives with a roommate in [place], denies any prior service or current legal difficulties. He is [employer]regational in terms of his katharina formation. He denies having any active interest at this point in time. MENTAL STATUS EXAM: The patient is a 46-year-old white male, in no apparent distress. Speech is of regular rate and rhythm. The patient is cognitively oriented. Psychomotor activities within normal limits. There is no abnormal motor movements or tics observed. Gait and station are not observed as the patient is lying in bed during the course of the interview. Mood is frustrated. Affect is cooperative overall for the purposes of the inpatient psychiatric consult. There is no behavioral or stated evidence of acute suicidal or homicidal ideation or acute psychotic, delusional, or paranoid symptoms. Thought process is organized. There are no manic symptoms or loose associations evident. Judgment and insight appear unimpaired at this point in time. Motivation for help is good. VITAL SIGNS: 122/77, 64, 18, and 98.2 degrees. IMPRESSION: Conway I: 1. Alcohol dependence, F10.20. 2. Depression, not otherwise specified, F32.9. 3. Rule out major depressive disorder. Conway II: None. Conway III: 1. Aortic valve replacement. 2. History of hepatic cancer, currently in remission. 3. 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 4. Conway IV: Severe. 5. Conway V: 60. PLAN: 1. Sobriety. 2. AA rep to visit the patient to educate patient on AA services in the [facility]. 3. Pastoral guidance. 4. Folic acid supplementation. 5. Thiamine supplementation. 6. CIWA protocol. 7. Librium 25 mg b.i.d. to help with withdrawal symptoms. 8. Other medications as dosed and prescribed by the patient's primary inpatient medical treatment team. 9. Recommended the patient to follow up with Outpatient Psychiatry if needed when discharged back to the Community. 10.We will continue to follow up with the patient on as needed basis while he remains on the inpatient medical unit. 11.We will follow up with the patient sooner if there are any complications in the interim. 12.Crisis plan is in place. BHUMIKA /[id number]
[2017-02-07] MEDS: Sodium Chloride 0.9% 1,000 ML IV SCH (04:48)
[2017-02-07] MEDS: Enoxaparin 60 MG/0.6 ML Syringe SUBCUT SCH ×2 (09:48→21:34)
[2017-02-07] MEDS: Thiamine 100 MG Tab PO SCH (09:49)
[2017-02-07] MEDS: Folic Acid 1 MG Tab PO SCH (09:49)
[2017-02-07] MEDS: Famotidine 20 MG Tab PO SCH ×2 (09:49→21:35)
[2017-02-07] MEDS: chlordiazePOXIDE 25 MG Cap PO SCH (09:49)
[2017-02-07] MEDS: Metoprolol Succinate 50 MG Tab.ER PO SCH (09:50)
--- NOTE | 2017-02-07 10:16 | PCM.PN ---
<Courtney Sarkar M - Last Filed: 02/07/17 12:13> - General Info Date of Service: 02/07/17 Admission Dx/Problem (Free Text): Admission Diagnosis/Problem Admission Diagnosis/Problem Alcohol withdrawal syndrome Functional Status: Reports: Pain Controlled, Tolerating Diet, Ambulating, Urinating. Denies: New Symptoms - Review of Systems General: Reports: No Symptoms HEENT: Reports: No Symptoms Pulmonary: Reports: No Symptoms Cardiovascular: Reports: No Symptoms Gastrointestinal: Reports: No Symptoms Genitourinary: Reports: No Symptoms Musculoskeletal: Reports: No Symptoms Skin: Reports: No Symptoms Neurological: Reports: No Symptoms. Denies: Headache Psychiatric: Reports: No Symptoms, Anxiety (mild), Cravings (minimal). Denies: Mood Lability, Agitation, Hallucinations, Suicidal Ideation, Homicidal Ideation - Patient Data Vitals - Most Recent: Last Vital Signs Temp 97.5 F 02/07/17 08:47 Pulse 56 L 02/07/17 09:50 Resp 15 02/07/17 08:47 BP 116/70 02/07/17 08:47 Pulse Ox 98 02/07/17 08:47 Weight - Most Recent: 64.438 kg I&O - Last 24 Hours: Intake & Output 02/06/17 02/07/17 02/07/17 22:59 06:59 14:59 Intake Total 1477 1265 Output Total 475 Balance 1002 1265 Lab Results Last 24 Hours: Laboratory Results - last 24 hr 02/06/17 02/06/17 02/07/17 Range/Units 11:00 11:00 05:45 PT 20.7 H (8.0-13.0) SECONDS INR 1.83 Urine Color Yellow (Yellow) Urine Appearance Cloudy H (Clear) Urine pH 6.5 (5.0-8.0) Ur Specific Rumsey 1.025 (1.005-1.030) Urine Protein 1+ H (Negative) Urine Glucose (UA) Negative (Negative) Urine Ketones Negative (Negative) Urine Occult Blood 2+ H (Negative) Urine Nitrite Negative (Negative) Urine Bilirubin Negative (Negative) Urine Urobilinogen 1.0 (0.2-1.0) Ur Leukocyte Esterase Negative (Negative) Urine RBC 5-10 H (0-5) /hpf Urine WBC 0-5 (0-5) /hpf Ur Epithelial Cells 0-5 (0-5) /hpf Amorphous Sediment Many H (NOT SEEN) /hpf Urine Bacteria Few (FEW) /hpf Urine Mucus Few (FEW) /hpf Urine Opiates Screen Negative (NEGATIVE) Ur Buprenorphine Scrn Negative (NEGATIVE) Ur Oxycodone Screen Negative (NEGATIVE) Urine Methadone Screen Negative (NEGATIVE) Ur Propoxyphene Screen Negative (NEGATIVE) Ur Barbiturates Screen Negative (NEGATIVE) Ur Tricyclics Screen Negative (NEGATIVE) Ur Phencyclidine Scrn Negative (NEGATIVE) Ur Amphetamine Screen Negative (NEGATIVE) U Methamphetamines Scrn Negative (NEGATIVE) U Benzodiazepines Scrn Presumptive positive H (NEGATIVE) U Cocaine Metab Screen Negative (NEGATIVE) U Marijuana (THC) Screen Negative (NEGATIVE) Med Orders - Current: Current Medications Chlordiazepoxide HCl (Librium) 25 mg PO BID [facility] Last Admin: 02/07/17 09:49 Dose: 25 mg Enoxaparin Sodium (Lovenox) 60 mg SUBCUT BID [facility] Last Admin: 02/07/17 09:48 Dose: 60 mg Famotidine (Pepcid) 20 mg PO BID [facility] Last Admin: 02/07/17 09:49 Dose: 20 mg Folic Acid (Folic Acid) 1 mg PO DAILY [facility] Last Admin: 02/07/17 09:49 Dose: 1 mg Lorazepam (Ativan) 0 mg IVPUSH ASDIRECTED PRN; Protocol PRN Reason: Withdrawal Symptoms Last Admin: 02/06/17 17:52 Dose: 1 mg Metoprolol Succinate (Toprol Xl) 50 mg PO DAILY [facility] Last Admin: 02/07/17 09:50 Dose: Not Given Sodium Chloride (Saline Flush) 10 ml FLUSH ASDIRECTED PRN PRN Reason: Keep Vein Open Last Admin: 02/05/17 21:09 Dose: 10 ml Thiamine HCl (Vitamin B-1) 100 mg PO DAILY [facility] Last Admin: 02/07/17 09:49 Dose: 100 mg Trazodone HCl (Trazodone) 50 mg PO BEDTIME PRN PRN Reason: Insomnia Last Admin: 02/06/17 21:05 Dose: 50 mg Warfarin Sodium (Pharmacy To Dose - Warfarin) 0 dose .XX ASDIRECTED PRN PRN Reason: RX TO DOSE COUMDAIN Warfarin Sodium (Coumadin) 6 mg PO DAILY@1800 [facility] Last Admin: 02/06/17 18:36 Dose: 6 mg Discontinued Medications Chlordiazepoxide HCl (Librium) 25 mg PO ONETIME ONE Stop: 02/05/17 21:14 Last Admin: 02/05/17 21:30 Dose: 25 mg Diphtheria/Tetanus/Acell Pertussis (Adacel) 0.5 ml IM .ONCE ONE Stop: 02/06/17 10:01 Enoxaparin Sodium (Lovenox) 70 mg SUBCUT ONETIME ONE Stop: 02/05/17 22:34 Last Admin: 02/05/17 22:55 Dose: 70 mg Folic Acid (Folic Acid) 1 mg PO ONETIME ONE Stop: 02/05/17 21:14 Last Admin: 02/05/17 21:30 Dose: 1 mg Magnesium Sulfate 2 gm/ Premix 50 mls @ 25 mls/hr IV ONETIME ONE Stop: 02/05/17 23:14 Last Admin: 02/05/17 21:31 Dose: 25 mls/hr Sodium Chloride (Normal Saline) 1,000 mls @ 100 mls/hr IV ASDIRECTED [facility] Last Admin: 02/07/17 04:48 Dose: 100 mls/hr Lorazepam (Ativan) 1 mg IVPUSH ONETIME ONE Stop: 02/05/17 21:17 Last Admin: 02/05/17 21:30 Dose: 1 mg Propranolol HCl (Inderal La) 60 mg PO ONETIME ONE Stop: 02/05/17 21:14 Last Admin: 02/05/17 21:30 Dose: 60 mg Thiamine HCl (Vitamin B-1) 100 mg PO ONETIME ONE Stop: 02/05/17 21:14 Last Admin: 02/05/17 21:30 Dose: 100 mg - Exam Quality Assessment: DVT Prophylaxis General: Alert, Oriented, Cooperative, No Acute Distress HEENT: Pupils Equal, EOMI, Mucous Membr. Moist/[place]: Supple Lungs: Clear to Auscultation, Normal Respiratory Effort Cardiovascular: Regular Rate, Regular Rhythm, Murmurs (mechanical aortic valve noted) GI/Abdominal Exam: Normal Bowel Sounds, Soft, Non-Tender (Male) Exam: Deferred Extremities: Normal Inspection Neurological: No New Focal Deficit Psy/Mental Status: Alert - Problem List & Annotations (1) Alcohol abuse SNOMED Code(s): 92899951 Code(s): F10.10 - ALCOHOL ABUSE, UNCOMPLICATED Status: Chronic Priority: High Current Visit: Yes Onset Date: 07/23/14 (2) Alcohol intoxication SNOMED Code(s): 95130131 Code(s): F10.129 - ALCOHOL ABUSE WITH INTOXICATION, UNSPECIFIED Status: Acute Priority: High Current Visit: Yes (3) Subtherapeutic international normalized ratio (INR) SNOMED Code(s): 523496270 Code(s): R79.1 - ABNORMAL COAGULATION PROFILE Status: Acute Priority: High Current Visit: Yes (4) History of aortic valve replacement SNOMED Code(s): 5389015459078, 430885759, 8094744737617 Code(s): Z95.2 - PRESENCE OF PROSTHETIC HEART VALVE Status: Chronic Priority: Medium Current Visit: Yes - Problem List Review Problem List Initiated/Reviewed/Updated: Yes - My Orders Last 24 Hours: My Active Orders 02/06/17 10:39 Consult for Substance Abuse [CONS] Routine 02/06/17 11:00 Enoxaparin [Lovenox] 60 mg SUBCUT BID 02/06/17 18:00 Warfarin [Coumadin] 6 mg PO DAILY@1800 02/06/17 Lunch Heart Healthy Diet [DIET] 02/07/17 10:12 Echo Comp wo Cont [US] Routine 02/07/17 10:14 BASIC METABOLIC PANEL,BMP [CHEM] Routine CBC WITH AUTO DIFF [HEME] Routine 02/08/17 05:00 INR,PT,PROTHROMBIN TIME [COAG] Routine 02/08/17 05:11 BASIC METABOLIC PANEL,BMP [CHEM] AM CBC WITH AUTO DIFF [HEME] AM INR,PT,PROTHROMBIN TIME [COAG] AM 02/09/17 05:11 INR,PT,PROTHROMBIN TIME [COAG] AM 02/10/17 05:11 INR,PT,PROTHROMBIN TIME [COAG] AM 02/11/17 05:11 INR,PT,PROTHROMBIN TIME [COAG] AM 02/12/17 05:11 INR,PT,PROTHROMBIN TIME [COAG] AM - Plan Plan:: I/P: Alcohol intoxication- acute, with chronic alcohol dependence KALEE 0.3 -Hydration, follow labs---eating/drinking well now, IVF dc'd -last drink 3 hours prior to seeking help at the ED; can expect withdrawl within 48-72 hours of admit. -FELIZ hough, berny rowanium -Psychiatry consult: Dr. Bazzi recommends AA and spiritual care per consult this morning. Patient came to ER/Hospital seeking more help than he is able to do for himself, clearly he needs more than community resources to help him at this time. Coming to ER is his cry for help. -Will consult Yossi KRAUSE for further input. Subtherapeutic INR on Chronic coumadin therapy -Lovenox to bridge until therapeutic -Pharmacy to dose coumadin -Daily INR Chronic: HTN- cont home meds Hx Aortic Valve Replacement- on coumadin; as above -admits to not taking coumadin as rx'd--this can be life threatening for him , especially when mixing with alcohol. He is aware of this potential danger of this situation. 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 Other: DVT/GI prophylax CM/SW for assist with DC plan Patient is full code status <Lyric Schmidt - Last Filed: 02/07/17 15:59> - Patient Data Vitals - Most Recent: Last Vital Signs Temp 37.2 C 02/07/17 12:47 Pulse 58 L 02/07/17 12:47 Resp 18 02/07/17 12:47 BP 130/71 02/07/17 12:47 Pulse Ox 100 02/07/17 12:47 I&O - Last 24 Hours: Intake & Output 02/07/17 02/07/17 02/07/17 06:59 14:59 22:59 Intake Total 1265 Balance 1265 Lab Results Last 24 Hours: Laboratory Results - last 24 hr 02/07/17 02/07/17 02/07/17 Range/Units 05:45 05:45 05:45 WBC 5.76 (4.23-9.07) K/mm3 RBC 4.23 L (4.63-6.08) M/mm3 Hgb 13.3 L (13.7-17.5) gm/L Hct 40.1 (40.1-51.0) % MCV 94.8 H (79.0-92.2) fl MCH 31.4 (25.7-32.2) pg MCHC 33.2 (32.2-35.5) g/dl RDW Std Deviation 45.4 H (35.1-43.9) fL Plt Count 237 (163-337) K/mm3 MPV 10.9 (9.4-12.3) fl Neut % (Auto) 39.8 (34.0-67.9) % Lymph % (Auto) 36.3 (21.8-53.1) % [place] % (Auto) 20.1 H (5.3-12.2) % Eos % (Auto) 2.6 (0.8-7.0) Baso % (Auto) 1.0 (0.1-1.2) % Neut # (Auto) 2.29 (1.78-5.38) K/mm3 Lymph # (Auto) 2.09 (1.32-3.57) K/mm3 [place] # (Auto) 1.16 H (0.30-0.82) K/mm3 Eos # (Auto) 0.15 (0.04-0.54) K/mm3 Baso # (Auto) 0.06 (0.01-0.08) K/mm3 Manual Slide Review Normal smear PT 20.7 H (8.0-13.0) SECONDS INR 1.83 Sodium 139 (136-145) mEq/L Potassium 4.1 (3.5-5.1) mEq/L Chloride 105 (98-107) mEq/L Carbon Dioxide 27 (21-32) mEq/L Anion Gap 11.1 (5-15) BUN 23 H (7-18) mg/dL Creatinine 1.0 (0.7-1.3) mg/dL Est Cr Clr Drug Dosing 83.23 mL/min Estimated GFR (MDRD) > 60 (>60) mL/min BUN/Creatinine Ratio 23.0 H (14-18) Glucose 89 (74-106) mg/dL Calcium 7.6 L (8.5-10.1) mg/dL Med Orders - Current: Current Medications Chlordiazepoxide HCl (Librium) 25 mg PO BID [facility] Last Admin: 02/07/17 09:49 Dose: 25 mg Enoxaparin Sodium (Lovenox) 60 mg SUBCUT BID [facility] Last Admin: 02/07/17 09:48 Dose: 60 mg Famotidine (Pepcid) 20 mg PO BID [facility] Last Admin: 02/07/17 09:49 Dose: 20 mg Folic Acid (Folic Acid) 1 mg PO DAILY [facility] Last Admin: 02/07/17 09:49 Dose: 1 mg Lorazepam (Ativan) 0 mg IVPUSH ASDIRECTED PRN; Protocol PRN Reason: Withdrawal Symptoms Last Admin: 02/06/17 17:52 Dose: 1 mg Metoprolol Succinate (Toprol Xl) 25 mg PO DAILY [facility] Sodium Chloride (Saline Flush) 10 ml FLUSH ASDIRECTED PRN PRN Reason: Keep Vein Open Last Admin: 02/05/17 21:09 Dose: 10 ml Thiamine HCl (Vitamin B-1) 100 mg PO DAILY [facility] Last Admin: 02/07/17 09:49 Dose: 100 mg Trazodone HCl (Trazodone) 50 mg PO BEDTIME PRN PRN Reason: Insomnia Last Admin: 02/06/17 21:05 Dose: 50 mg Warfarin Sodium (Pharmacy To Dose - Warfarin) 0 dose .XX ASDIRECTED PRN PRN Reason: RX TO DOSE COUMDAIN Warfarin Sodium (Coumadin) 4 mg PO DAILY@1800 [facility] Stop: 02/07/17 21:00 Discontinued Medications Chlordiazepoxide HCl (Librium) 25 mg PO ONETIME ONE Stop: 02/05/17 21:14 Last Admin: 02/05/17 21:30 Dose: 25 mg Diphtheria/Tetanus/Acell Pertussis (Adacel) 0.5 ml IM .ONCE ONE Stop: 02/06/17 10:01 Enoxaparin Sodium (Lovenox) 70 mg SUBCUT ONETIME ONE Stop: 02/05/17 22:34 Last Admin: 02/05/17 22:55 Dose: 70 mg Folic Acid (Folic Acid) 1 mg PO ONETIME ONE Stop: 02/05/17 21:14 Last Admin: 02/05/17 21:30 Dose: 1 mg Magnesium Sulfate 2 gm/ Premix 50 mls @ 25 mls/hr IV ONETIME ONE Stop: 02/05/17 23:14 Last Admin: 02/05/17 21:31 Dose: 25 mls/hr Sodium Chloride (Normal Saline) 1,000 mls @ 100 mls/hr IV ASDIRECTED [facility] Last Admin: 02/07/17 04:48 Dose: 100 mls/hr Lorazepam (Ativan) 1 mg IVPUSH ONETIME ONE Stop: 02/05/17 21:17 Last Admin: 02/05/17 21:30 Dose: 1 mg Metoprolol Succinate (Toprol Xl) 50 mg PO DAILY [facility] Last Admin: 02/07/17 09:50 Dose: Not Given Propranolol HCl (Inderal La) 60 mg PO ONETIME ONE Stop: 02/05/17 21:14 Last Admin: 02/05/17 21:30 Dose: 60 mg Thiamine HCl (Vitamin B-1) 100 mg PO ONETIME ONE Stop: 02/05/17 21:14 Last Admin: 02/05/17 21:30 Dose: 100 mg Warfarin Sodium (Coumadin) 6 mg PO DAILY@1800 [facility] Last Admin: 02/06/17 18:36 Dose: 6 mg - Plan Plan:: Will DC Librium as discussed with patient. Follow CIWAs with prn benzodiazepines as directed.
[2017-02-07] MEDS ORDERED: Warfarin 4 MG Tab PO SCH (18:00)
[2017-02-07] MEDS: traZODone 50 MG Tab PO PRN (21:48)
--- NOTE | 2017-02-08 07:23 | PCM.DCSUM1 ---
<Lyric Schmidt - Last Filed: 02/08/17 14:37> Discharge Summary - Hospital Course Free Text/Narrative:: Appears to be motivated, will need close monitoring for INR re: AVR; goal 2.5- 3.5. - Discharge Data Discharge Disposition: DC/Tfer to Other 70 Condition: Good - Patient Summary/Data Consults: Consultations 02/06/17 06:56 Consult to Physician [CONS] Routine 02/06/17 07:43 Consult to Spiritual Care [CONS] Routine 02/06/17 10:39 Consult for Substance Abuse [CONS] Routine - Discharge Plan Prescriptions/Med Rec: Famotidine [Pepcid] 20 mg PO BID #60 tablet Folic Acid 1 mg PO DAILY #30 tablet Metoprolol Succinate [Toprol XL] 25 mg PO DAILY #30 tab.er Thiamine [Vitamin B-1] 100 mg PO DAILY #30 tablet Warfarin [Coumadin] 4 mg PO DAILY #30 tablet Home Medications: Home Meds Famotidine [Pepcid] 20 mg PO BID #60 tablet 02/08/17 [Rx] Folic Acid 1 mg PO DAILY #30 tablet 02/08/17 [Rx] Metoprolol Succinate [Toprol XL] 25 mg PO DAILY #30 tab.er 02/08/17 [Rx] Thiamine [Vitamin B-1] 100 mg PO DAILY #30 tablet 02/08/17 [Rx] Warfarin [Coumadin] 4 mg PO DAILY #30 tablet 02/08/17 [Rx] Patient Handouts: Alcohol Use Disorder, Alcohol Intoxication, Gjyj-ha-[id number], Alcohol Abuse and Nutrition, Smokeless Tobacco Use, Tobacco Use Disorder Referrals: Bina Francois, DO [Primary Care Provider] - (Please call and schedule a follow up apt. with Bina Francois in 1 weeks, or when you have been discharged from [facility]. ) - Patient Data Vitals - Most Recent: Last Vital Signs Temp 36.7 C 02/08/17 06:18 Pulse 69 02/08/17 09:35 Resp 16 02/08/17 06:18 BP 118/65 02/08/17 09:35 Pulse Ox 96 02/08/17 06:18 I&O - Last 24 hours: Intake & Output 02/07/17 02/08/17 02/08/17 22:59 06:59 14:59 Intake Total 1510 600 180 Balance 1510 600 180 Lab Results - Last 24 hrs: Laboratory Results - last 24 hr 02/08/17 02/08/17 02/08/17 Range/Units 06:00 06:00 06:00 WBC 5.92 (4.23-9.07) K/mm3 RBC 4.35 L (4.63-6.08) M/mm3 Hgb 13.8 (13.7-17.5) gm/L Hct 40.5 (40.1-51.0) % MCV 93.1 H (79.0-92.2) fl MCH 31.7 (25.7-32.2) pg MCHC 34.1 (32.2-35.5) g/dl RDW Std Deviation 44.2 H (35.1-43.9) fL Plt Count 252 (163-337) K/mm3 MPV 11.0 (9.4-12.3) fl Neut % (Auto) 47.5 (34.0-67.9) % Lymph % (Auto) 31.4 (21.8-53.1) % [place] % (Auto) 16.7 H (5.3-12.2) % Eos % (Auto) 3.7 (0.8-7.0) Baso % (Auto) 0.7 (0.1-1.2) % Neut # (Auto) 2.81 (1.78-5.38) K/mm3 Lymph # (Auto) 1.86 (1.32-3.57) K/mm3 [place] # (Auto) 0.99 H (0.30-0.82) K/mm3 Eos # (Auto) 0.22 (0.04-0.54) K/mm3 Baso # (Auto) 0.04 (0.01-0.08) K/mm3 Manual Slide Review Normal smear PT 28.6 H (8.0-13.0) SECONDS INR 2.48 Sodium 142 (136-145) mEq/L Potassium 3.9 (3.5-5.1) mEq/L Chloride 108 H (98-107) mEq/L Carbon Dioxide 27 (21-32) mEq/L Anion Gap 10.9 (5-15) BUN 16 (7-18) mg/dL Creatinine 0.9 (0.7-1.3) mg/dL Est Cr Clr Drug Dosing 92.73 mL/min Estimated GFR (MDRD) > 60 (>60) mL/min BUN/Creatinine Ratio 17.8 (14-18) Glucose 98 (74-106) mg/dL Calcium 8.0 L (8.5-10.1) mg/dL Med Orders - Current: Current Medications Famotidine (Pepcid) 20 mg PO BID [facility] Last Admin: 02/08/17 09:18 Dose: 20 mg Folic Acid (Folic Acid) 1 mg PO DAILY [facility] Last Admin: 02/08/17 09:18 Dose: 1 mg Lorazepam (Ativan) 0 mg IVPUSH ASDIRECTED PRN; Protocol PRN Reason: Withdrawal Symptoms Last Admin: 02/06/17 17:52 Dose: 1 mg Metoprolol Succinate (Toprol Xl) 25 mg PO DAILY [facility] Last Admin: 02/08/17 09:35 Dose: 25 mg Sodium Chloride (Saline Flush) 10 ml FLUSH ASDIRECTED PRN PRN Reason: Keep Vein Open Last Admin: 02/05/17 21:09 Dose: 10 ml Thiamine HCl (Vitamin B-1) 100 mg PO DAILY [facility] Last Admin: 02/08/17 09:18 Dose: 100 mg Trazodone HCl (Trazodone) 50 mg PO BEDTIME PRN PRN Reason: Insomnia Last Admin: 02/07/17 21:48 Dose: 50 mg Warfarin Sodium (Pharmacy To Dose - Warfarin) 0 dose .XX ASDIRECTED PRN PRN Reason: RX TO DOSE COUMDAIN Warfarin Sodium (Coumadin) 4 mg PO DAILY@1800 [facility] Stop: 02/08/17 21:00 Discontinued Medications Chlordiazepoxide HCl (Librium) 25 mg PO ONETIME ONE Stop: 02/05/17 21:14 Last Admin: 02/05/17 21:30 Dose: 25 mg Chlordiazepoxide HCl (Librium) 25 mg PO BID [facility] Last Admin: 02/07/17 09:49 Dose: 25 mg Diphtheria/Tetanus/Acell Pertussis (Adacel) 0.5 ml IM .ONCE ONE Stop: 02/06/17 10:01 Diphtheria/Tetanus/Acell Pertussis (Adacel) 0.5 ml IM .ONCE ONE Stop: 02/08/17 11:46 Last Admin: 02/08/17 11:43 Dose: 0.5 ml Enoxaparin Sodium (Lovenox) 70 mg SUBCUT ONETIME ONE Stop: 02/05/17 22:34 Last Admin: 02/05/17 22:55 Dose: 70 mg Enoxaparin Sodium (Lovenox) 60 mg SUBCUT BID [facility] Last Admin: 02/08/17 09:34 Dose: Not Given Folic Acid (Folic Acid) 1 mg PO ONETIME ONE Stop: 02/05/17 21:14 Last Admin: 02/05/17 21:30 Dose: 1 mg Magnesium Sulfate 2 gm/ Premix 50 mls @ 25 mls/hr IV ONETIME ONE Stop: 02/05/17 23:14 Last Admin: 02/05/17 21:31 Dose: 25 mls/hr Sodium Chloride (Normal Saline) 1,000 mls @ 100 mls/hr IV ASDIRECTED [facility] Last Admin: 02/07/17 04:48 Dose: 100 mls/hr Lorazepam (Ativan) 1 mg IVPUSH ONETIME ONE Stop: 02/05/17 21:17 Last Admin: 02/05/17 21:30 Dose: 1 mg Metoprolol Succinate (Toprol Xl) 50 mg PO DAILY [facility] Last Admin: 02/07/17 09:50 Dose: Not Given Propranolol HCl (Inderal La) 60 mg PO ONETIME ONE Stop: 02/05/17 21:14 Last Admin: 02/05/17 21:30 Dose: 60 mg Thiamine HCl (Vitamin B-1) 100 mg PO ONETIME ONE Stop: 02/05/17 21:14 Last Admin: 02/05/17 21:30 Dose: 100 mg Warfarin Sodium (Coumadin) 6 mg PO DAILY@1800 [facility] Last Admin: 02/06/17 18:36 Dose: 6 mg Warfarin Sodium (Coumadin) 4 mg PO DAILY@1800 [facility] Stop: 02/07/17 21:00 Last Admin: 02/07/17 17:04 Dose: 4 mg *Q Meaningful Use (DIS) - VTE *Q VTE Criteria *Q: - Stroke *Q Stroke Criteria *Q: - AMI *Q AMI Criteria *Q: <Courtney Sarkar M - Last Filed: 02/12/17 14:58> Discharge Summary - Hospital Course Free Text/Narrative:: Rocky is a 46yo male who presented to ER last evening, intoxicated and asking for help with alcohol detoxification. KALEE was 0.3. He has been on a "robert" for 4 days drinking "fireball". He is requesting help for detox and for rehab. He has never had alcohol withdrawl seizures. He has been to rehab in the past. PMH is significant for AVR, on chronic coumadin therapy which he admits he does not take correctly, especially when he is drinking. INR is subtherapeutic at 1.2. 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 Course of hospital stay is fairly unremarkable. He underwent mild detox symptoms. Was maintained on CIWAA protocol with Librium and ativan. Psychiatry, Dr. Bazzi was consulted. Coumadin was restarted, he was maintained on lovenox until INR was therapeutic at which time lovenox was subsequently discontinued. He is discharged to [facility] for alcohol treatment director of undergraduate admissions's department to transport. Follow up with PCP after discharge from [facility] or within one week of hospital discharge. INR is to be redrawn on Sunday02/12/17 with results to PCP, Dr. Francois. - Discharge Data Discharge Date: 02/08/17 (02/05/17) - Discharge Diagnosis/Problem(s) (1) Alcohol abuse SNOMED Code(s): 44268974 ICD Code: F10.10 - ALCOHOL ABUSE, UNCOMPLICATED Status: Chronic Priority : High Onset Date: 07/23/14 (2) Alcohol intoxication SNOMED Code(s): 96434187 ICD Code: F10.129 - ALCOHOL ABUSE WITH INTOXICATION, UNSPECIFIED Status: Acute Priority: High (3) Subtherapeutic international normalized ratio (INR) SNOMED Code(s): 960448072 ICD Code: R79.1 - ABNORMAL COAGULATION PROFILE Status: Acute Priority: High (4) History of aortic valve replacement SNOMED Code(s): 5873450061635, 944796374, 4127573282703 ICD Code: Z95.2 - PRESENCE OF PROSTHETIC HEART VALVE Status: Chronic Priority: Medium - Patient Summary/Data Operative Procedure(s) Performed: None Complications: None Consults: Consultations 02/06/17 06:56 Consult to Physician [CONS] Routine 02/06/17 07:43 Consult to Spiritual Care [CONS] Routine 02/06/17 10:39 Consult for Substance Abuse [CONS] Routine Labs Pending at D/C: None Recommended Follow-up Testing/Procedures: Follow up with PCP, Dr. Francois within one week of discharge or when discharged from [facility] rehab unit. INR on Sunday02/12/17 Planned Operative Procedure(s) after DC: None Hospital Course: As above - Patient Instructions Diet: Heart Healthy Diet Activity: As Tolerated Driving: Do Not Drive Showering/Bathing: May Shower Notify Provider of: Fever, Increased Pain, Swelling and Redness, Nausea and/or Vomiting - Discharge Summary/Plan Comment DC Time >30 min.: Yes (40 min) - General Info Date of Service: 02/08/17 Admission Dx/Problem (Free Text: Admission Diagnosis/Problem Admission Diagnosis/Problem Alcohol withdrawal syndrome Functional Status: Reports: Pain Controlled, Tolerating Diet, Ambulating, Urinating. Denies: New Symptoms - Review of Systems General: Reports: No Symptoms HEENT: Reports: No Symptoms Pulmonary: Reports: No Symptoms Cardiovascular: Reports: No Symptoms Gastrointestinal: Reports: No Symptoms Genitourinary: Reports: No Symptoms Musculoskeletal: Reports: No Symptoms Skin: Reports: No Symptoms Neurological: Reports: No Symptoms Psychiatric: Reports: No Symptoms - Patient Data Vitals - Most Recent: Last Vital Signs Temp 98.1 F 02/08/17 06:18 Pulse 56 L 02/08/17 06:18 Resp 16 02/08/17 06:18 BP 102/65 02/08/17 06:18 Pulse Ox 96 02/08/17 06:18 Weight - Most Recent: 142 lb 7 oz I&O - Last 24 hours: Intake & Output 02/07/17 02/08/17 02/08/17 22:59 06:59 14:59 Intake Total 1510 600 Balance 1510 600 Lab Results - Last 24 hrs: Laboratory Results - last 24 hr 02/07/17 02/07/17 02/08/17 Range/Units 05:45 05:45 06:00 WBC 5.76 5.92 (4.23-9.07) K/mm3 RBC 4.23 L 4.35 L (4.63-6.08) M/mm3 Hgb 13.3 L 13.8 (13.7-17.5) gm/L Hct 40.1 40.5 (40.1-51.0) % MCV 94.8 H 93.1 H (79.0-92.2) fl MCH 31.4 31.7 (25.7-32.2) pg MCHC 33.2 34.1 (32.2-35.5) g/dl RDW Std Deviation 45.4 H 44.2 H (35.1-43.9) fL Plt Count 237 252 (163-337) K/mm3 MPV 10.9 11.0 (9.4-12.3) fl Neut % (Auto) 39.8 47.5 (34.0-67.9) % Lymph % (Auto) 36.3 31.4 (21.8-53.1) % [place] % (Auto) 20.1 H 16.7 H (5.3-12.2) % Eos % (Auto) 2.6 3.7 (0.8-7.0) Baso % (Auto) 1.0 0.7 (0.1-1.2) % Neut # (Auto) 2.29 2.81 (1.78-5.38) K/mm3 Lymph # (Auto) 2.09 1.86 (1.32-3.57) K/mm3 [place] # (Auto) 1.16 H 0.99 H (0.30-0.82) K/mm3 Eos # (Auto) 0.15 0.22 (0.04-0.54) K/mm3 Baso # (Auto) 0.06 0.04 (0.01-0.08) K/mm3 Manual Slide Review Normal smear Sodium 139 (136-145) mEq/L Potassium 4.1 (3.5-5.1) mEq/L Chloride 105 (98-107) mEq/L Carbon Dioxide 27 (21-32) mEq/L Anion Gap 11.1 (5-15) BUN 23 H (7-18) mg/dL Creatinine 1.0 (0.7-1.3) mg/dL Est Cr Clr Drug Dosing 83.23 mL/min Estimated GFR (MDRD) > 60 (>60) mL/min BUN/Creatinine Ratio 23.0 H (14-18) Glucose 89 (74-106) mg/dL Calcium 7.6 L (8.5-10.1) mg/dL Med Orders - Current: Current Medications Enoxaparin Sodium (Lovenox) 60 mg SUBCUT BID [facility] Last Admin: 02/07/17 21:34 Dose: 60 mg Famotidine (Pepcid) 20 mg PO BID [facility] Last Admin: 02/07/17 21:35 Dose: Not Given Folic Acid (Folic Acid) 1 mg PO DAILY [facility] Last Admin: 02/07/17 09:49 Dose: 1 mg Lorazepam (Ativan) 0 mg IVPUSH ASDIRECTED PRN; Protocol PRN Reason: Withdrawal Symptoms Last Admin: 02/06/17 17:52 Dose: 1 mg Metoprolol Succinate (Toprol Xl) 25 mg PO DAILY [facility] Sodium Chloride (Saline Flush) 10 ml FLUSH ASDIRECTED PRN PRN Reason: Keep Vein Open Last Admin: 02/05/17 21:09 Dose: 10 ml Thiamine HCl (Vitamin B-1) 100 mg PO DAILY [facility] Last Admin: 02/07/17 09:49 Dose: 100 mg Trazodone HCl (Trazodone) 50 mg PO BEDTIME PRN PRN Reason: Insomnia Last Admin: 02/07/17 21:48 Dose: 50 mg Warfarin Sodium (Pharmacy To Dose - Warfarin) 0 dose .XX ASDIRECTED PRN PRN Reason: RX TO DOSE COUMDAIN Discontinued Medications Chlordiazepoxide HCl (Librium) 25 mg PO ONETIME ONE Stop: 02/05/17 21:14 Last Admin: 02/05/17 21:30 Dose: 25 mg Chlordiazepoxide HCl (Librium) 25 mg PO BID [facility] Last Admin: 02/07/17 09:49 Dose: 25 mg Diphtheria/Tetanus/Acell Pertussis (Adacel) 0.5 ml IM .ONCE ONE Stop: 02/06/17 10:01 Enoxaparin Sodium (Lovenox) 70 mg SUBCUT ONETIME ONE Stop: 02/05/17 22:34 Last Admin: 02/05/17 22:55 Dose: 70 mg Folic Acid (Folic Acid) 1 mg PO ONETIME ONE Stop: 02/05/17 21:14 Last Admin: 02/05/17 21:30 Dose: 1 mg Magnesium Sulfate 2 gm/ Premix 50 mls @ 25 mls/hr IV ONETIME ONE Stop: 02/05/17 23:14 Last Admin: 02/05/17 21:31 Dose: 25 mls/hr Sodium Chloride (Normal Saline) 1,000 mls @ 100 mls/hr IV ASDIRECTED [facility] Last Admin: 02/07/17 04:48 Dose: 100 mls/hr Lorazepam (Ativan) 1 mg IVPUSH ONETIME ONE Stop: 02/05/17 21:17 Last Admin: 02/05/17 21:30 Dose: 1 mg Metoprolol Succinate (Toprol Xl) 50 mg PO DAILY [facility] Last Admin: 02/07/17 09:50 Dose: Not Given Propranolol HCl (Inderal La) 60 mg PO ONETIME ONE Stop: 02/05/17 21:14 Last Admin: 02/05/17 21:30 Dose: 60 mg Thiamine HCl (Vitamin B-1) 100 mg PO ONETIME ONE Stop: 02/05/17 21:14 Last Admin: 02/05/17 21:30 Dose: 100 mg Warfarin Sodium (Coumadin) 6 mg PO DAILY@1800 [facility] Last Admin: 02/06/17 18:36 Dose: 6 mg Warfarin Sodium (Coumadin) 4 mg PO DAILY@1800 [facility] Stop: 02/07/17 21:00 Last Admin: 02/07/17 17:04 Dose: 4 mg - Exam Quality Assessment: Reports: DVT Prophylaxis General: Reports: Alert, Oriented, Cooperative, No Acute Distress HEENT: Reports: Pupils Equal, EOMI, Mucous Membr. Moist/[place] Neck: Reports: Supple Lungs: Reports: Clear to Auscultation, Normal Respiratory Effort Cardiovascular: Reports: Regular Rate, Regular Rhythm (Aortic Valve noted) GI/Abdominal Exam: Normal Bowel Sounds, Soft, Non-Tender (Male) Exam: Deferred Rectal (Males) Exam: Deferred Back Exam: Reports: Normal Inspection Extremities: Normal Inspection Neurological: Reports: No New Focal Deficit Psy/Mental Status: Reports: Alert, Normal Affect, Normal Mood *Q Meaningful Use (DIS) - VTE *Q VTE Criteria *Q: - Stroke *Q Stroke Criteria *Q: - AMI *Q AMI Criteria *Q:
--- NOTE | 2017-02-08 08:30 | CONS ---
CONSULTING PHYSICIAN: Yossi Champagne LAC DATE OF CONSULTATION: 02/07/2017 TIME SEEN: 1:47 p.m. The patient is a 46-year-old male, who is admitted to [facility] on 02/05/2017. An alcohol and drug consultation was requested by his medical treatment team on 02/06/2017. An evaluation was completed with the patient on 02/06/2017. SOURCE OF INFORMATION: Hospital records, staff report, background research, and prescription drug monitoring report. HISTORY OF PRESENT ILLNESS: The patient presented to [facility] ER with a KALEE of 0.30 asking for detoxification on 02/05/2017. Prior to this admission, he presented to [facility] on 12/24/2016 for detoxification with a KALEE of 0.21. The patient had open heart surgery in November 2015 and an aortic valve replacement in January 2016. Prior to those surgeries, he presented in July 2014 for detox with a KALEE of 0.23 and in January 2015 for detox with a KALEE of 0.40. He was committed to the [facility] subsequent to his January 2015 admission. The patient continues to drink despite serious medical consequences including heart problems, not taking his Coumadin as prescribed, a past history of elevated liver panels, a past history of nephrectomy as a child due to Wilms tumor. PSYCHOSOCIAL HISTORY: The patient reports that he was born and raised in [place], [place] by his adopted parents. He does not know his biological parents. The patient reports that he did not graduate from high school, as he was involved in criminal activity at an early age. He became involved with methamphetamine and ended up in [facility] at age 20. He was in an out of the penal system for the next 17 years for substance related offenses as well as grand theft auto. The patient states that he is very talented in stealing cars. The patient reports that he moved to [place] approximately 10 years ago and has been working primarily with [employer]. He states he lost his job with [employer] in October 2016 because he was not happy with the working conditions. However, he does state later in the evaluation that may have been fired for his alcohol use as he was missing a week at a time while on alcohol benders. He states he is currently unemployed and has been since October, and as a result of his employment, he has experienced boredom which has led to more extreme drinking. The patient reports that he has never been and has no children. He does have a girlfriend currently; however, it is not a serious relationship. The patient considers his mother as his strength of support. SUBSTANCE ABUSE HISTORY: The patient reports that in his teens and twenties he was addicted to poly substances, primarily amphetamine, methamphetamine, cocaine, PCP, cannabis, and alcohol. He states he was an IV drug user and his use was so pervasive that it led him to spend 17 years behind bars. The patient reports that he has not touched a drug since 07/14/2009. However, he has continued to drink alcohol. He appears to have cross addicted to alcohol and over the past several years has been drinking daily after work and on the weekends more heavily. In July 2014, when he first presented to [facility], he reported that he could not go even 1 week without drinking, and over a binge of a couple of days, he could drink 20 beers, a gallon of Bacardi rum, and shots of Tequila. Six months later, he presented again to ER with a KALEE of 0.40 and reported daily drinking, typically a fifth of rum per occasion. At that point, he was choosing to drink rather than eat, and presented with an emaciated body frame. He was committed to the [facility] and reported that he was able to stay sober for the next 6 months. He began drinking again on a daily basis until he presented to [facility] in October 2015 with an alcohol-related seizure. He then had open heart surgery in November 2015, and an aortic valve replacement in January 2016. He states he was able to stay sober briefly. He began drinking again and is reporting that in the last year he has been trying to control his drinking. He has a regular pattern of drinking behavior. He will go to the liquor store in the morning and by 2 fireball Kwaku and one 22 ounce Bernard, drink that and continued to go back to the liquor store in the same pattern throughout the day and night. He states he cannot buy a big bottle because he will drink it. However, there will be times that he will succumb to binge drinking and take a week off work to drink. He states he will begin drinking on Sunday and maybe on will try to get straight to go to work on Sunday. He states he knows it is time to quit drinking after a binge because everything hurts on him, especially his liver. The patient reports that in a month's time he will drink 2 weeks straight out of every 4, and the weeks that he is not on a binge, he will be drinking every day in his controlled pattern. For the past several years, he has demonstrated consistent pattern of drinking and coming to [facility] for detox, as he is afraid he will of withdrawal. He states he has experienced blackouts and pass out as well as severe withdrawals. A prescription drug monitoring report was pulled indicating that over the past 2 years he has been prescribed intermittently benzodiazepines and it appears this is in response to detox. His prescription drug monitoring report results are unremarkable. DIAGNOSES: The patient meets DSM-5 criteria for the following diagnoses: 1. F10.20, alcohol use disorder, severe. 2. F10.229, alcohol intoxication. 3. F10.239, alcohol withdrawal without perceptual disturbance. 4. 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 5. 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 ASAM DIMENSIONS: 1. Dimension 1: Score 2. The patient has some difficulty tolerating and coping with withdrawal discomfort. His intoxication may be severe but responds to support and treatment. 2. Dimension 2: Score 3. The patient has poor general health and is drinking despite negative medical consequences. 3. Dimension 3. Score 2. The patient has difficulty functioning in significant life areas. Difficulty with impulse control and lacks coping skills. However, he is able to participate in most treatment activities. 4. Dimension 4. Score 3. The patient displays minimal awareness of his addiction and is in the pre-contemplation stage of change. 5. Dimension 5: Score 3. The patient has little recognition and understanding of relapse and recidivism issues and displays high vulnerability for further substance use problems. 6. Dimension 6: Score 3. The patient is not engaged in structured meaningful activity and he has a very little social support. 7. ASSESSMENT SUMMARY: The patient presents in stage IV alcoholism manifesting with psychological and physical addiction. He has been drinking maladaptively for at least the last 10 years and is now drinking despite having a serious heart condition requiring Coumadin, past history of liver failure, past history of nephrectomy. The patient has been committed to substance abuse treatment in the past. However, he has not been able to maintain sobriety. He is now presenting with an inability to quit drinking without professional intervention and is amenable to treatment primarily to fulfill a possible requirement by the court, as he was recently picked up with an APC. His greatest fear is dying from drinking or withdrawals. Yet, he continues to drink increasing his risk for severe withdrawal and irreversible major organ damage. His current lack of capacity for good decisions and lack of insight about his drinking puts him at continued serious risk for negative consequences from drinking. Without a controlled environment, the patient may continue to drink to fatal levels and intervention is needed to interrupt this serious late stage addiction. Dr. Schmidt was consulted regarding the outcome of this evaluation and is in agreement with a petition for involuntary commitment for substance abuse treatment. RECOMMENDATIONS: The patient meets ASAM criteria for level 3.1, clinically managed low intensity residential treatment when medically stable. A petition for involuntary commitment will be executed on 02/07/2017 for any admitting facility. ROSANNA Garner will be consulted and will make necessary arrangements for continued care. [facility] should be consulted as to availability for continued treatment. Note to social Work, the patient is in need of medical insurance and would like to have an application for [employer] insurance. BHUMIKA /[phone]
[2017-02-08] MEDS ORDERED: Metoprolol Succinate 25 MG Tab.ER PO SCH (09:00)
[2017-02-08] MEDS: Thiamine 100 MG Tab PO SCH (09:18)
[2017-02-08] MEDS: Folic Acid 1 MG Tab PO SCH (09:18)
[2017-02-08] MEDS: Famotidine 20 MG Tab PO SCH (09:18)
[2017-02-08] MEDS: Enoxaparin 60 MG/0.6 ML Syringe SUBCUT SCH (09:34)
[2017-02-08 09:36] VITALS: BP 118/65
[2017-02-08] MEDS ORDERED: Diphtheria,Pertussis(Acell),Tetanus Vaccine 0.5 ML SDV IM ONE (11:45)
[2017-02-08] MEDS ORDERED: Warfarin 4 MG Tab PO SCH (18:00)
== END 2017-02-08 12:32 | disposition other institution (70) | DRG 897 ==
LOC: JD.ED 20:40 → JD.MS 22:47
PROVIDERS: ADMIT Internal Medicine Cardiovascular Disease; ATTEND Internal Medicine Cardiovascular Disease
PROC: HZ2ZZZZ Detoxification Services for Substance Abuse Treatment (ICD-10-PCS; principal; 2017-02-05)
DX: F10.232 Alcohol dependence with withdrawal with perceptual disturbance (principal); F10.229 Alcohol dependence with intoxication, unspecified; F15.21 Other stimulant dependence, in remission; F16.21 Hallucinogen dependence, in remission; F32.9 Major depressive disorder, single episode, unspecified; Z79.01 Long term (current) use of anticoagulants; Z79.899 Other long term (current) drug therapy; Z95.2 Presence of prosthetic heart valve; Z85.05 Personal history of malignant neoplasm of liver; Z90.5 Acquired absence of kidney; Z87.891 Personal history of nicotine dependence; Y90.1 Blood alcohol level of 20-39 mg/100 ml; R79.1 Abnormal coagulation profile; I10 Essential (primary) hypertension
CPT/HCPCS: 36415; 80048; 80053; 80306; 81001; 83690; 83735; 84443; 85025; 85610; 85730; 86140; 90715; 93005; 93306; 96365; 96366; 96372; 96375; 99284; 99285-25; A9270-GY; G0480; J1650; J2060; J3475; J7040; J7050

== ENCOUNTER 2017-04-14 17:06 | Inpatient (IN) | payer MEDICAID ==
[2017-04-14] MEDS ORDERED: Sodium Chloride 0.9% 1,000 ML IV ONE ×2 (17:57→19:09)
[2017-04-14] MEDS ORDERED: Ondansetron 4 MG/2 ML SDV IVPUSH ONE (17:57)
--- NOTE | 2017-04-14 18:10 | EDM.PDOC ---
ED HPI GENERAL MEDICAL PROBLEM - General Chief Complaint: Drug or Alcohol Abuse Stated Complaint: DETOX Time Seen by Provider: 04/14/17 17:47 Source of Information: Reports: Patient, Other (friend) History Limitations: Reports: No Limitations - History of Present Illness INITIAL COMMENTS - FREE TEXT/NARRATIVE: Patient is a 46-year-old male who presents to the ED wishing to have help with his alcohol addiction. Patient states he's been drinking alcohol qd for the past month. Beverages include beer and fireball. His last drink was 1620. States he cant do this anymore. He's been placed for inpatient treatment at [facility], [place], operated by [facility]. Patient has a history of aortic valve replacement and is on Coumadin. Unknown his last INR. Patient states when going through withdrawal he develops tremors. Denies seizure or hallucinations. Patient denies any complaints at this time. Patient was admitted to the hospital here 02/05/2017 for alcohol detox. Per patient he was discharged to [facility] for one month. Upon discharge from [facility] started consuming alcohol every day. Middle Abdomen Pain Score (Numeric/FACES): 2 - Related Data Allergies Allergy/AdvReac Type Severity Reaction Status Date / Time No Known Allergies Allergy Verified 04/14/17 17:24 Home Meds: Home Meds Metoprolol Succinate [Toprol XL] 25 mg PO DAILY #30 tab.er 02/08/17 [Rx] Warfarin [Coumadin] 4 mg PO DAILY #30 tablet 02/08/17 [Rx] FLUoxetine [PROzac] 20 mg PO DAILY #30 cap 04/16/17 [Rx] Past Medical History Cardiovascular History: Reports: Heart Valve Replacement Other Cardiovascular History: aortic stenosis, valvular heart disease, aortic regurgitation, is on coumadin Other Respiratory History: lung cancer at age 3 Gastrointestinal History: Reports: Colon Polyp Other Gastrointestinal History: globus sensation Genitourinary History: Reports: Dialysis Other Genitourinary History: 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 Kidney was removed. Social & Family History - Family History Family Medical History: Noncontributory - Tobacco Use Smoking Status *Q: Former Smoker Years of Tobacco use: 30 Packs/Tins Daily: 0.2 Used Tobacco, but Quit: Yes Month Tobacco Last Used: 06/2006 Second Hand Smoke Exposure: No - Caffeine Use Caffeine Use: Reports: Coffee - Alcohol Use Days Per Week of Alcohol Use: 7 Number of Drinks Per Day: 20 Total Drinks Per Week: 140 - Recreational Drug Use Recreational Drug Use: No Drug Use in Last 12 Months: No Recreational Drug Type: Reports: Methamphetamine Recreational Drug Use Frequency: Not Used In Over 6 Months Recreational Drug Last Use: 2009 ED ROS GENERAL - Review of Systems Review Of Systems: ROS reveals no pertinent complaints other than HPI. ED EXAM, NEURO - Physical Exam Exam: See Below Exam Limited By: Intoxication General Appearance: Alert, WD/WN, No Apparent Distress Eye Exam: Bilateral Eye: EOMI, PERRL Ears: Normal External Exam, Hearing Grossly Normal Nose: Normal Inspection Throat/Mouth: Normal Inspection, Normal Oropharynx, Normal Voice, No Airway Compromise Neck: Normal Inspection, Supple Respiratory/Chest: No Respiratory Distress, Lungs Clear, Normal Breath Sounds, No Accessory Muscle Use, Chest Non-Tender Cardiovascular: Normal Peripheral Pulses, Regular Rate, Rhythm GI/Abdominal: Normal Bowel Sounds, Soft, Non-Tender Neurological: Alert, Normal Mood/Affect, CN II-XII Intact, Oriented x 3 Psychiatric: Normal Affect, Normal Mood Skin Exam: Warm, Dry, Intact, Normal Color Course - Vital Signs Last Recorded V/S: Last Vital Signs Temp 98.3 F 04/16/17 08:00 Pulse 108 H 04/16/17 09:55 Resp 18 04/16/17 08:00 BP 118/75 04/16/17 09:55 Pulse Ox 98 04/16/17 08:00 - Orders/Labs/Meds Labs: Laboratory Tests 04/14/17 04/14/17 04/14/17 Range/Units 17:55 17:55 17:55 WBC 7.69 (4.23-9.07) K/mm3 RBC 4.82 (4.63-6.08) M/mm3 Hgb 14.8 (13.7-17.5) gm/L Hct 42.7 (40.1-51.0) % MCV 88.6 (79.0-92.2) fl MCH 30.7 (25.7-32.2) pg MCHC 34.7 (32.2-35.5) g/dl RDW Std Deviation 43.4 (35.1-43.9) fL Plt Count 310 (163-337) K/mm3 MPV 10.4 (9.4-12.3) fl Neut % (Auto) 47.2 (34.0-67.9) % Lymph % (Auto) 41.9 (21.8-53.1) % [place] % (Auto) 9.8 (5.3-12.2) % Eos % (Auto) 0.1 L (0.8-7.0) Baso % (Auto) 1.0 (0.1-1.2) % Neut # (Auto) 3.63 (1.78-5.38) K/mm3 Lymph # (Auto) 3.22 (1.32-3.57) K/mm3 [place] # (Auto) 0.75 (0.30-0.82) K/mm3 Eos # (Auto) 0.01 L (0.04-0.54) K/mm3 Baso # (Auto) 0.08 (0.01-0.08) K/mm3 PT 40.4 H (8.0-13.0) SECONDS INR 3.43 Sodium 144 (136-145) mEq/L Potassium 3.5 (3.5-5.1) mEq/L Chloride 106 (98-107) mEq/L Carbon Dioxide 31 (21-32) mEq/L Anion Gap 10.5 (5-15) BUN 16 (7-18) mg/dL Creatinine 1.1 (0.7-1.3) mg/dL Est Cr Clr Drug Dosing 74.57 mL/min Estimated GFR (MDRD) > 60 (>60) mL/min BUN/Creatinine Ratio 14.5 (14-18) Glucose 126 H (74-106) mg/dL Calcium 8.4 L (8.5-10.1) mg/dL Magnesium 2.1 (1.8-2.4) mg/dl Total Bilirubin 0.3 (0.2-1.0) mg/dL AST 45 H (15-37) U/L ALT 25 (16-63) U/L Alkaline Phosphatase 76 (46-116) U/L Total Protein 8.2 (6.4-8.2) g/dl Albumin 3.7 (3.4-5.0) g/dl Globulin 4.5 gm/dL Albumin/Globulin Ratio 0.8 L (1-2) Lipase (73-393) U/L TSH 3rd Generation 0.953 (0.358-3.74) uIU/mL Urine Color (Yellow) Urine Appearance (Clear) Urine pH (5.0-8.0) Ur Specific [place] (1.005-1.030) Urine Protein (Negative) Urine Glucose (UA) (Negative) Urine Ketones (Negative) Urine Occult Blood (Negative) Urine Nitrite (Negative) Urine Bilirubin (Negative) Urine Urobilinogen (0.2-1.0) Ur Leukocyte Esterase (Negative) Urine RBC (0-5) /hpf Urine WBC (0-5) /hpf Ur Epithelial Cells (0-5) /hpf Urine Bacteria (FEW) /hpf Urine Mucus (FEW) /hpf Urine Opiates Screen (NEGATIVE) Ur Buprenorphine Scrn (NEGATIVE) Ur Oxycodone Screen (NEGATIVE) Urine Methadone Screen (NEGATIVE) Ur Propoxyphene Screen (NEGATIVE) Ur Barbiturates Screen (NEGATIVE) Ur Tricyclics Screen (NEGATIVE) Ur Phencyclidine Scrn (NEGATIVE) Ur Amphetamine Screen (NEGATIVE) U Methamphetamines Scrn (NEGATIVE) U Benzodiazepines Scrn (NEGATIVE) U Cocaine Metab Screen (NEGATIVE) U Marijuana (THC) Screen (NEGATIVE) Ethyl Alcohol 0.46 (0.00) gm% 04/14/17 04/14/17 04/14/17 Range/Units 17:55 18:15 18:15 WBC (4.23-9.07) K/mm3 RBC (4.63-6.08) M/mm3 Hgb (13.7-17.5) gm/L Hct (40.1-51.0) % MCV (79.0-92.2) fl MCH (25.7-32.2) pg MCHC (32.2-35.5) g/dl RDW Std Deviation (35.1-43.9) fL Plt Count (163-337) K/mm3 MPV (9.4-12.3) fl Neut % (Auto) (34.0-67.9) % Lymph % (Auto) (21.8-53.1) % [place] % (Auto) (5.3-12.2) % Eos % (Auto) (0.8-7.0) Baso % (Auto) (0.1-1.2) % Neut # (Auto) (1.78-5.38) K/mm3 Lymph # (Auto) (1.32-3.57) K/mm3 [place] # (Auto) (0.30-0.82) K/mm3 Eos # (Auto) (0.04-0.54) K/mm3 Baso # (Auto) (0.01-0.08) K/mm3 PT (8.0-13.0) SECONDS INR Sodium (136-145) mEq/L Potassium (3.5-5.1) mEq/L Chloride (98-107) mEq/L Carbon Dioxide (21-32) mEq/L Anion Gap (5-15) BUN (7-18) mg/dL Creatinine (0.7-1.3) mg/dL Est Cr Clr Drug Dosing mL/min Estimated GFR (MDRD) (>60) mL/min BUN/Creatinine Ratio (14-18) Glucose (74-106) mg/dL Calcium (8.5-10.1) mg/dL Magnesium (1.8-2.4) mg/dl Total Bilirubin (0.2-1.0) mg/dL AST (15-37) U/L ALT (16-63) U/L Alkaline Phosphatase (46-116) U/L Total Protein (6.4-8.2) g/dl Albumin (3.4-5.0) g/dl Globulin gm/dL Albumin/Globulin Ratio (1-2) Lipase 133 (73-393) U/L TSH 3rd Generation (0.358-3.74) uIU/mL Urine Color Light yellow (Yellow) Urine Appearance Clear (Clear) Urine pH 7.0 (5.0-8.0) Ur Specific [place] 1.015 (1.005-1.030) Urine Protein Negative (Negative) Urine Glucose (UA) Negative (Negative) Urine Ketones Negative (Negative) Urine Occult Blood 1+ H (Negative) Urine Nitrite Negative (Negative) Urine Bilirubin Negative (Negative) Urine Urobilinogen 0.2 (0.2-1.0) Ur Leukocyte Esterase Negative (Negative) Urine RBC 0-5 (0-5) /hpf Urine WBC 0-5 (0-5) /hpf Ur Epithelial Cells 0-5 (0-5) /hpf Urine Bacteria Occasional (FEW) /hpf Urine Mucus Not seen (FEW) /hpf Urine Opiates Screen Negative (NEGATIVE) Ur Buprenorphine Scrn Negative (NEGATIVE) Ur Oxycodone Screen Negative (NEGATIVE) Urine Methadone Screen Negative (NEGATIVE) Ur Propoxyphene Screen Negative (NEGATIVE) Ur Barbiturates Screen Negative (NEGATIVE) Ur Tricyclics Screen Negative (NEGATIVE) Ur Phencyclidine Scrn Negative (NEGATIVE) Ur Amphetamine Screen Negative (NEGATIVE) U Methamphetamines Scrn Negative (NEGATIVE) U Benzodiazepines Scrn Negative (NEGATIVE) U Cocaine Metab Screen Negative (NEGATIVE) U Marijuana (THC) Screen Negative (NEGATIVE) Ethyl Alcohol (0.00) gm% Meds: Medications Discontinued Medications Generic Name Dose Route Start Last Admin Trade Name Freq PRN Reason Stop Dose Admin Acetaminophen 650 mg 04/14/17 20:56 Tylenol PO Q4H PRN Pain (Mild 1-3)/fever Albuterol/Ipratropium 3 ml 04/14/17 20:56 Duoneb 3.0-0.5 Mg/3 Ml NEB Q4H PRN Shortness Of Breath/wheezing Bisacodyl 5 mg 04/14/17 20:56 Dulcolax PO DAILY PRN Constipation Chlordiazepoxide HCl 0 mg 04/14/17 21:15 Librium PO ASDIRECTED SHERLY Protocol Chlordiazepoxide HCl 25 mg 04/14/17 21:02 04/16/17 09:56 Librium PO 25 mg Q8H PRN Administration Withdrawal Symptoms Clonidine HCl 0.1 mg 04/14/17 21:02 Catapres PO Q4H PRN Agitation Diphenhydramine HCl 50 mg 04/14/17 21:13 04/14/17 21:34 Benadryl IVPUSH 04/14/17 21:14 50 mg ONETIME ONE Administration Docusate Sodium 100 mg 04/14/17 20:56 Colace PO BID PRN Constipation Famotidine 20 mg 04/15/17 09:00 04/16/17 09:54 Pepcid PO 20 mg Q12H SHERLY Administration Fluoxetine HCl 20 mg 04/15/17 14:04 04/16/17 09:54 Prozac PO 20 mg DAILY SHERLY Administration Folic Acid 1 mg 04/15/17 09:00 04/16/17 10:01 Folic Acid PO 04/17/17 09:01 1 mg DAILY SHERLY Administration Folic Acid 1 mg 04/14/17 21:02 04/14/17 21:49 Folic Acid SUBCUT 04/14/17 21:03 1 mg ONETIME ONE Administration Hydralazine HCl 20 mg 04/14/17 21:10 Apresoline IVPUSH Q4H PRN Hypertension Hydromorphone HCl 0.25 mg 04/14/17 20:56 Dilaudid IVPUSH Q2H PRN Pain (severe 7-10) Sodium Chloride 1,000 mls @ 999 mls/hr 04/14/17 17:57 04/14/17 18:06 Normal Saline IV 04/14/17 18:57 999 mls/hr ONETIME ONE Administration Sodium Chloride 1,000 mls @ 250 mls/hr 04/14/17 19:09 04/14/17 19:20 Normal Saline IV 04/14/17 23:08 250 mls/hr ONETIME ONE Administration Promethazine HCl 12.5 mg/ 50.5 mls @ 100 mls/hr 04/14/17 20:56 Sodium Chloride IV Q6H PRN Nausea/Vomiting Sodium Chloride 1,000 mls @ 125 mls/hr 04/14/17 21:15 04/16/17 06:53 Normal Saline IV 125 mls/hr ASDIRECTED SHERLY Administration Thiamine HCl 200 mg/ Sodium 100 mls @ 100 mls/hr 04/14/17 21:02 04/14/17 22: 01 Chloride IV 04/14/17 22:01 100 mls/hr ONETIME ONE Administration Magnesium Sulfate 2 gm/ Premix 50 mls @ 25 mls/hr 04/15/17 12:00 04/15/17 12: 14 IV 04/15/17 13:59 25 mls/hr ONETIME ONE Administration Lorazepam 2 mg 04/14/17 19:52 04/14/17 21:35 Ativan IVPUSH 04/14/17 19:53 2 mg ONETIME ONE Administration Protocol Lorazepam 2 mg 04/14/17 21:10 Ativan IVPUSH Q4H PRN Seizures Lorazepam 0 mg 04/14/17 21:10 04/15/17 20:53 Ativan IVPUSH 1 mg Q4H PRN Administration Withdrawal Symptoms Protocol Magnesium Sulfate 0 dose 04/14/17 21:15 Pharmacy To Dose - Magnesium Replacement .XX ASDIRECTED PRN RX TO WATCH MAG LEVELS Metoprolol Succinate 25 mg 04/15/17 09:00 04/16/17 09:55 Toprol Xl PO 25 mg DAILY SHERLY Administration Metoprolol Tartrate 5 mg 04/14/17 21:10 04/15/17 02:54 Lopressor IVPUSH 5 mg Q4H PRN Administration Tachycardia Multivitamins 1 each 04/15/17 09:00 04/16/17 09:53 Thera PO 1 each DAILY SHERLY Administration Ondansetron HCl 4 mg 04/14/17 17:57 04/14/17 18:06 Zofran IVPUSH 04/14/17 17:58 4 mg ONETIME ONE Administration Ondansetron HCl 4 mg 04/14/17 20:56 Zofran IV Q6H PRN Nausea/Vomiting Oxycodone HCl 5 mg 04/14/17 20:56 Oxycodone PO Q4H PRN Pain (moderate 4-6) Pantoprazole Sodium 40 mg 04/14/17 20:56 04/14/17 21:35 Protonix Iv .XX 04/14/17 20:57 40 mg ONETIME ONE Administration Polyethylene Glycol 17 gm 04/14/17 20:56 Miralax PO DAILY PRN Constipation Potassium Chloride 0 dose 04/14/17 21:15 Pharmacy To Dose - Potassium Replacement .XX ASDIRECTED PRN RX TO WATCH K LEVELS Quetiapine Fumarate 50 mg 04/14/17 21:11 04/14/17 21:34 Seroquel PO 04/14/17 21:12 50 mg ONETIME ONE Administration Quetiapine Fumarate 25 mg 04/15/17 09:00 04/16/17 09:53 Seroquel PO 25 mg BID SHERLY Administration Senna/Docusate Sodium 1 tab 04/14/17 20:56 Senna Plus PO BID PRN Constipation Thiamine HCl 100 mg 04/15/17 09:00 04/16/17 09:53 Vitamin B-1 PO 100 mg DAILY SHERLY Administration Topiramate 25 mg 04/15/17 09:00 04/16/17 09:57 Topamax PO 25 mg BID SHERLY Administration Topiramate 50 mg 04/14/17 21:12 04/14/17 21:34 Topamax PO 04/14/17 21:13 50 mg NOW STA Administration Warfarin Sodium 4 mg 04/15/17 18:00 04/15/17 18:30 Coumadin PO 4 mg DAILY@1800 SHERLY Administration - Re-Assessments/Exams Free Text/Narrative Re-Assessment/Exam: IV established with normal saline and Zofran 4 mg IVP. Initial labs and studies include CBC, chem 14, urine drug tox, serum EtOH, PTT/INR, magnesium, TSH, and UA. 04/14/17 19:11 Labs reviewed: CBC essentially normal. INR is 3.43 which is within therapeutic range for an artificial mechanical aortic valve. Sodium 144, potassium 3.5, AG 10.5, creatinine 1.1, glucose 126, AST 45, TSH 0.953, UA revealed occult blood 1+, urine drug tox negative, serum EtOH 0.46. Ordered normal saline 250 mL per hour. We'll have MCG performed. He does speak with Dr. Esqueda [employer] [facility]. 04/14/17 19:50 Discussed with the patient lab results and options. Patient does not want to be discharged home on his own accord and go to bed last menstrual versus on Sunday for treatment. Patient wants to be admitted to the hospital for inpatient detox. 04/14/17 19:[address] Esqueda. He has accepted the patient. Admit to the ICU. Departure - Departure Time of Disposition: 19:57 Disposition: DC/Tfer to Acute Hospital 02 Condition: Fair Clinical Impression: Alcohol abuse - Discharge Information
[2017-04-14] MEDS: LORazepam 2 MG/ML MDV IVPUSH ONE ×2 (20:00→21:35)
[2017-04-14] MEDS ORDERED: Albuterol/Ipratropium 3.0-0.5 MG/3 ML Neb Soln NEB PRN (20:56)
[2017-04-14] MEDS ORDERED: Ondansetron 4 MG/2 ML SDV IV PRN (20:56)
[2017-04-14] MEDS ORDERED: Polyethylene Glycol 3350 Powder 17 GM Packet PO PRN (20:56)
[2017-04-14] MEDS ORDERED: Pantoprazole 40 MG Vial ONE (20:56)
[2017-04-14] MEDS ORDERED: Acetaminophen 325 MG Tab PO PRN (20:56)
[2017-04-14] MEDS ORDERED: Bisacodyl 5 MG Tab PO PRN (20:56)
[2017-04-14] MEDS ORDERED: Docusate Sodium 100 MG Cap PO PRN (20:56)
[2017-04-14] MEDS ORDERED: Promethazine 12.5 MG in Sodium Chloride 0.9% 50 ML IV PRN (20:56)
[2017-04-14] MEDS ORDERED: HYDROmorphone 1 MG/ML Syringe IVPUSH PRN (20:56)
[2017-04-14] MEDS ORDERED: oxyCODONE 5 MG Tab PO PRN (20:56)
--- NOTE | 2017-04-14 20:56 | PCM.HP ---
H&P History of Present Illness - General Date of Service: 04/14/17 Admit Problem/Dx: Alcohol Intoxication Source of Information: Patient, Old Records, Provider, RN Notes Reviewed History Limitations: Reports: Altered Mental Status, Intoxication - History of Present Illness Initial Comments - Free Text/Narative: This is a 46 yo white male with past medical hx/o HVR on Warfarin, Valvular Heart Disease, Hx/o Lung CA at the age of 3, Renal Disease 2/2 Wilm's Tumor, Substance Abuse, and Anxiety who presents to ED for evaluation of alcohol intoxication. Patient carries a hx/o chronic etoh abuse. He was recently discharged from [facility] about a month ago for chemical dependency treatment. Unfortunately, he relapsed after discharge. He was not able to tell me why he went back to drinking. Patient carries a hx/o inpatient treatment in [place], [place]. Patient has been drinking beers and sometimes fireball. His initial workup in the emergency department shows an unremarkable CBC. PT is 40.4 and INR is 3.3. His chemistry is remarkable for BS of 126, calcium of 8.4, and AST of 45. His UA is negative for urinary tract infection. His UDS is negative but his etoh level is 0.46. Patient is being admitted for alcohol detoxification. He is full code. Middle Abdomen Pain Score (Numeric/FACES): 2 - Related Data Allergies/Adverse Reactions: Allergies Allergy/AdvReac Type Severity Reaction Status Date / Time No Known Allergies Allergy Verified 04/14/17 17:24 Home Medications: Home Meds Metoprolol Succinate [Toprol XL] 25 mg PO DAILY #30 tab.er 02/08/17 [Rx] Warfarin [Coumadin] 4 mg PO DAILY #30 tablet 02/08/17 [Rx] Past Medical History Cardiovascular History: Reports: Heart Valve Replacement Other Cardiovascular History: aortic stenosis, valvular heart disease, aortic regurgitation, is on coumadin Other Respiratory History: lung cancer at age 3 Gastrointestinal History: Reports: Colon Polyp Other Gastrointestinal History: globus sensation Genitourinary History: Reports: Dialysis Other Genitourinary History: 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 Kidney was removed. Social & Family History - Family History Family Medical History: Noncontributory - Tobacco Use Smoking Status *Q: Former Smoker Years of Tobacco use: 30 Packs/Tins Daily: 0.2 Used Tobacco, but Quit: Yes Month Tobacco Last Used: 06/2006 Second Hand Smoke Exposure: No - Caffeine Use Caffeine Use: Reports: Coffee - Alcohol Use Days Per Week of Alcohol Use: 7 Number of Drinks Per Day: 20 Total Drinks Per Week: 140 - Recreational Drug Use Recreational Drug Use: No Drug Use in Last 12 Months: No Recreational Drug Type: Reports: Methamphetamine Recreational Drug Use Frequency: Not Used In Over 6 Months Recreational Drug Last Use: 2009 H&P Review of Systems - Review of Systems: Review Of Systems: See Below General: Denies: Fever, Chills HEENT: Reports: No Symptoms Pulmonary: Denies: Shortness of Breath Cardiovascular: Denies: Chest Pain Gastrointestinal: Denies: Abdominal Pain, Nausea, Vomiting Genitourinary: Reports: No Symptoms Musculoskeletal: Reports: No Symptoms Skin: Denies: Cyanosis, Mottled, Diaphoresis, Bruising, Erythema, Wound Psychiatric: Denies: Confusion, Depression, Agitation, Hallucinations Neurological: Reports: Difficulty Walking, Gait Disturbance. Denies: Confusion , Pre-Existing Deficit, Seizure, Weakness Hematologic/Lymphatic: Reports: No Symptoms Immunologic: Reports: No Symptoms Exam - Exam Exam: See Below - Vital Signs Vital Signs: Last Vital Signs Temp 36.4 C 04/14/17 17:10 Pulse 102 H 04/14/17 20:45 Resp 18 04/14/17 20:45 BP 120/76 04/14/17 20:45 Pulse Ox 92 L 04/14/17 20:45 Weight: 63.503 kg - Exam General: Alert, Cooperative, Lethargic, Other (Intoxicated) HEENT: Conjunctiva Clear, EACs Clear, Hearing Intact, Mucosa Moist & [place], Nares Patent, Normal Nasal Septum, Posterior Pharynx Clear, Pupils Equal, Pupils Reactive. No: EOMI Neck: Supple, Trachea Midline, +2 Carotid Pulse wo Bruit Lungs: Normal Respiratory Effort, Decreased Breath Sounds Cardiovascular: Regular Rate, Regular Rhythm, Systolic Murmur GI/Abdominal Exam: Normal Bowel Sounds, Soft, Non-Tender, No Organomegaly, No Distention, No Abnormal Bruit, No Mass (Male) Exam: Deferred Rectal (Males) Exam: Deferred Back Exam: Normal Inspection, Decreased Range of Motion Extremities: Normal Inspection, Normal Range of Motion, Non-Tender, No Pedal Edema, Normal Capillary Refill Peripheral Pulses: 3+: Posterior Tibial (L), Posterior Tibial (R), Dorsalis Pedis (L), Dorsalis Pedis (R) Skin: Warm, Dry, Intact Neurological: Normal Speech, Abnormal Gait. No: Strength Equal Bilateral Neuro Extensive - Mental Status: Normal Cognition, Memory Intact, Slow Response to Commands Neuro Extensive - Motor, Sensory, Reflexes: CN II-XII Intact (limited due to intoxication) Psychiatric: Alert, Normal Affect. No: Normal Mood, Anxious, Agitated, Withdrawal Symptoms - Patient Data Result Diagrams: 04/15/17 05:45 04/15/17 05:45 *Q Meaningful Use (ADM) - VTE *Q VTE Criteria *Q: - Stroke *Q Stroke Criteria *Q: - AMI *Q AMI Criteria *Q: Problem List Initiated/Reviewed/Updated: Yes Orders Last 24hrs: Active Orders 24 hr Category Date Time Status LIPASE [CHEM] Routine Lab 04/14/17 20:49 Ordered Medication Orders Sodium Chloride (Normal Saline) 1,000 mls @ 250 mls/hr IV ONETIME ONE Stop: 04/14/17 23:08 Last Admin: 04/14/17 19:20 Dose: 250 mls/hr Assessment/Plan Comment:: Assessment/Plan: Acute: ETOH Intoxication - KALEE level is 0.46 - [facility] protocol - Ativan/Librium/Clonidine/Topamax - IVP Hydralazine and BB for HR/BP control - Ativan for Abortive Seizure and Withdrawal Symptoms - He was recently discharged from [facility] - He wants to get help to get better and would prefer to go back to [facility] - Tele-psych consult - He refused /Yossi Champagne consult ETOH Abuse - Acute on Chronic - He drinks beers and fireball - His last drink was aboutt about 1600 today - [facility] Protocol - Counseled on Substance Abuse - Refuses SA/Yossi Champagne consult Chronic: HVR on Warfarin, INR is stable /AR HV Disease Renal Disease 2/2 Wilm's Tumor Addiction Anxiety Plan: Admit to ICU CIWA Protocol MVI, Folic, Acid and Thiamine Ativan for Abortive Seizure and Withdrawal Symptoms PRN meds for Withdrawal Symptoms IV NS for maintenance fluid Aspiration/Seizure Precautions SW/CM d/c planning RCC consult GI/DVT PPx: PPI/H2B and SCDs SA/Psych consult Code Status: 1
[2017-04-14] MEDS ORDERED: Thiamine 200 MG in Sodium Chloride 0.9% 100 ML IV ONE (21:02)
[2017-04-14] MEDS ORDERED: Folic Acid 50 MG/10 ML MDV SUBCUT ONE (21:02)
[2017-04-14] MEDS ORDERED: cloNIDine 0.1 MG Tab PO PRN (21:02)
[2017-04-14] MEDS ORDERED: LORazepam 2 MG/ML MDV IVPUSH PRN (21:10)
[2017-04-14] MEDS ORDERED: Metoprolol Tartrate 5 MG/5 ML SDV IVPUSH PRN (21:10)
[2017-04-14] MEDS ORDERED: hydrALAZINE 20 MG/ML SDV IVPUSH PRN (21:10)
[2017-04-14] MEDS ORDERED: QUEtiapine 25 MG Tab PO ONE (21:11)
[2017-04-14] MEDS ORDERED: Topiramate 25 MG Tab PO STA (21:12)
[2017-04-14] MEDS ORDERED: diphenhydrAMINE 50 MG/ML SDV IVPUSH ONE (21:13)
[2017-04-14] MEDS ORDERED: chlordiazePOXIDE 25 MG Cap PO SCH (21:15)
[2017-04-14] MEDS: LORazepam 2 MG/ML MDV IVPUSH PRN (21:45)
[2017-04-14] MEDS: Sodium Chloride 0.9% 1,000 ML IV SCH (23:04)
[2017-04-15] MEDS: Sodium Chloride 0.9% 1,000 ML IV SCH ×3 (06:45→22:17)
--- NOTE | 2017-04-15 07:22 | PCM.PN ---
- General Info Date of Service: 04/15/17 Admission Dx/Problem (Free Text): Alcohol Intoxication Subjective Update: Follow Up Functional Status: Reports: Pain Controlled, Tolerating Diet, Urinating - Review of Systems General: Denies: Fever, Weakness, Fatigue, Malaise, Chills HEENT: Reports: No Symptoms Pulmonary: Denies: Shortness of Breath Cardiovascular: Denies: Chest Pain Gastrointestinal: Denies: Abdominal Pain, Nausea, Vomiting Genitourinary: Reports: No Symptoms Musculoskeletal: Reports: No Symptoms Skin: Reports: No Symptoms Neurological: Denies: Confusion, Difficulty Walking, Weakness, Gait Disturbance Psychiatric: Denies: No Symptoms, Depression, Anxiety, Agitation, Hallucinations , Suicidal Ideation Systems Review Comment:: No significant overnight or acute issues. He slept pretty good. He is has no complaints. His CIWA this am is 6. His Mg is low at 1.7 this am. - Patient Data Vitals - Most Recent: Last Vital Signs Temp 36.3 C 04/15/17 04:00 Pulse 88 04/15/17 04:00 Resp 22 H 04/15/17 04:00 BP 90/56 L 04/15/17 04:00 Pulse Ox 97 04/15/17 04:00 Weight - Most Recent: 64.41 kg I&O - Last 24 Hours: Intake & Output 04/14/17 04/15/17 04/15/17 22:59 06:59 14:59 Intake Total 120 2237 Output Total 250 Balance 120 1986 Lab Results Last 24 Hours: Laboratory Results - last 24 hr 04/15/17 04/15/17 04/15/17 Range/Units 05:45 05:45 05:45 WBC 6.13 (4.23-9.07) K/mm3 RBC 4.01 L (4.63-6.08) M/mm3 Hgb 12.3 L (13.7-17.5) gm/L Hct 36.8 L (40.1-51.0) % MCV 91.8 (79.0-92.2) fl MCH 30.7 (25.7-32.2) pg MCHC 33.4 (32.2-35.5) g/dl RDW Std Deviation 46.7 H (35.1-43.9) fL Plt Count 256 (163-337) K/mm3 MPV 10.3 (9.4-12.3) fl Neut % (Auto) 45.8 (34.0-67.9) % Lymph % (Auto) 46.0 (21.8-53.1) % [place] % (Auto) 7.2 (5.3-12.2) % Eos % (Auto) 0.3 L (0.8-7.0) Baso % (Auto) 0.7 (0.1-1.2) % Neut # (Auto) 2.81 (1.78-5.38) K/mm3 Lymph # (Auto) 2.82 (1.32-3.57) K/mm3 [place] # (Auto) 0.44 (0.30-0.82) K/mm3 Eos # (Auto) 0.02 L (0.04-0.54) K/mm3 Baso # (Auto) 0.04 (0.01-0.08) K/mm3 PT 38.8 H (8.0-13.0) SECONDS INR 3.30 Sodium 146 H (136-145) mEq/L Potassium 3.8 (3.5-5.1) mEq/L Chloride 112 H (98-107) mEq/L Carbon Dioxide 28 (21-32) mEq/L Anion Gap 9.8 (5-15) BUN 15 (7-18) mg/dL Creatinine 1.1 (0.7-1.3) mg/dL Est Cr Clr Drug Dosing 75.63 mL/min Estimated GFR (MDRD) > 60 (>60) mL/min BUN/Creatinine Ratio 13.6 L (14-18) Glucose 91 (74-106) mg/dL Calcium 7.1 L (8.5-10.1) mg/dL Magnesium 1.7 L (1.8-2.4) mg/dl Med Orders - Current: Current Medications Acetaminophen (Tylenol) 650 mg PO Q4H PRN PRN Reason: Pain (Mild 1-3)/fever Albuterol/Ipratropium (Duoneb 3.0-0.5 Mg/3 Ml) 3 ml NEB Q4H PRN PRN Reason: Shortness Of Breath/wheezing Bisacodyl (Dulcolax) 5 mg PO DAILY PRN PRN Reason: Constipation Chlordiazepoxide HCl (Librium) 0 mg PO ASDIRECTED SHERLY PRN Reason: Protocol Chlordiazepoxide HCl (Librium) 25 mg PO Q8H PRN PRN Reason: Withdrawal Symptoms Clonidine HCl (Catapres) 0.1 mg PO Q4H PRN PRN Reason: Agitation Docusate Sodium (Colace) 100 mg PO BID PRN PRN Reason: Constipation Famotidine (Pepcid) 20 mg PO Q12H [facility], [facility] Folic Acid (Folic Acid) 1 mg PO DAILY [facility]1983 Stop: 04/17/17 09:01 Hydralazine HCl (Apresoline) 20 mg IVPUSH Q4H PRN PRN Reason: Hypertension Hydromorphone HCl (Dilaudid) 0.25 mg IVPUSH Q2H PRN PRN Reason: Pain (severe 7-10) Promethazine HCl 12.5 mg/ (Sodium Chloride) 50.5 mls @ 100 mls/hr IV Q6H PRN PRN Reason: Nausea/Vomiting Sodium Chloride (Normal Saline) 1,000 mls @ 125 mls/hr IV ASDIRECTED [facility], [facility] Last Admin: 04/15/17 06:45 Dose: 125 mls/hr Lorazepam (Ativan) 2 mg IVPUSH Q4H PRN PRN Reason: Seizures Lorazepam (Ativan) 0 mg IVPUSH Q4H PRN; Protocol PRN Reason: Withdrawal Symptoms Last Admin: 04/14/17 21:45 Dose: 2 mg Magnesium Sulfate (Pharmacy To Dose - Magnesium Replacement) 1 dose .XX ASDIRECTED [facility], [facility]1983 Metoprolol Succinate (Toprol Xl) 25 mg PO DAILY [facility] Metoprolol Tartrate (Lopressor) 5 mg IVPUSH Q4H PRN PRN Reason: Tachycardia Last Admin: 04/15/17 02:54 Dose: 5 mg Multivitamins (Thera) 1 each PO DAILY [facility] Ondansetron HCl (Zofran) 4 mg IV Q6H PRN PRN Reason: Nausea/Vomiting Oxycodone HCl (Oxycodone) 5 mg PO Q4H PRN PRN Reason: Pain (moderate 4-6) Polyethylene Glycol (Miralax) 17 gm PO DAILY PRN PRN Reason: Constipation Potassium Chloride (Pharmacy To Dose - Potassium Replacement) 1 dose .XX ASDIRECTED [facility] Quetiapine Fumarate (Seroquel) 25 mg PO BID [facility] Senna/Docusate Sodium (Senna Plus) 1 tab PO BID PRN PRN Reason: Constipation Thiamine HCl (Vitamin B-1) 100 mg PO DAILY SHERLY Topiramate (Topamax) 25 mg PO BID SHERLY Warfarin Sodium (Coumadin) 4 mg PO DAILY@1800 SHERLY Discontinued Medications Diphenhydramine HCl (Benadryl) 50 mg IVPUSH ONETIME ONE Stop: 04/14/17 21:14 Last Admin: 04/14/17 21:34 Dose: 50 mg Folic Acid (Folic Acid) 1 mg SUBCUT ONETIME ONE Stop: 04/14/17 21:03 Last Admin: 04/14/17 21:49 Dose: 1 mg Sodium Chloride (Normal Saline) 1,000 mls @ 999 mls/hr IV ONETIME ONE Stop: 04/14/17 18:57 Last Admin: 04/14/17 18:06 Dose: 999 mls/hr Sodium Chloride (Normal Saline) 1,000 mls @ 250 mls/hr IV ONETIME ONE Stop: 04/14/17 23:08 Last Admin: 04/14/17 19:20 Dose: 250 mls/hr Thiamine HCl 200 mg/ Sodium (Chloride) 100 mls @ 100 mls/hr IV ONETIME ONE Stop: 04/14/17 22:01 Last Admin: 04/14/17 22:01 Dose: 100 mls/hr Lorazepam (Ativan) 2 mg IVPUSH ONETIME ONE PRN Reason: Protocol Stop: 04/14/17 19:53 Last Admin: 04/14/17 21:35 Dose: 2 mg Ondansetron HCl (Zofran) 4 mg IVPUSH ONETIME ONE Stop: 04/14/17 17:58 Last Admin: 04/14/17 18:06 Dose: 4 mg Pantoprazole Sodium (Protonix Iv) 40 mg .XX ONETIME ONE Stop: 04/14/17 20:57 Last Admin: 04/14/17 21:35 Dose: 40 mg Quetiapine Fumarate (Seroquel) 50 mg PO ONETIME ONE Stop: 04/14/17 21:12 Last Admin: 04/14/17 21:34 Dose: 50 mg Topiramate (Topamax) 50 mg PO NOW STA Stop: 04/14/17 21:13 Last Admin: 04/14/17 21:34 Dose: 50 mg - Exam General: Alert, Oriented, Cooperative, No Acute Distress HEENT: Pupils Equal, Pupils Reactive, EOMI, Mucous Membr. Moist/[place] Neck: Supple, Trachea Midline, No JVD Lungs: Clear to Auscultation, Normal Respiratory Effort Cardiovascular: Regular Rate, Regular Rhythm GI/Abdominal Exam: Normal Bowel Sounds, Soft, Non-Tender, No Organomegaly, No Distention, No Abnormal Bruit (Male) Exam: Deferred Back Exam: Normal Inspection Extremities: Normal Inspection, Normal Range of Motion, Non-Tender, No Pedal Edema, Normal Capillary Refill Peripheral Pulses: 3+: Dorsalis Pedis (L), Dorsalis Pedis (R) Skin: Warm, Dry, Intact Neurological: No New Focal Deficit Psy/Mental Status: Alert, Normal Affect, Normal Mood. No: Anxious, Agitated, Withdrawal Symptoms - Problem List Review Problem List Initiated/Reviewed/Updated: Yes - My Orders Last 24 Hours: My Active Orders 04/14/17 20:56 Height and Weight [RC] 04 Notify Provider [RC] PRN Up With Assistance [RC] ASDIRECTED Up ad Felipa [RC] ASDIRECTED VTE/DVT Education [RC] , Vital Signs [RC] Q4HR Acetaminophen [Tylenol] 650 mg PO Q4H PRN Albuterol/Ipratropium [DuoNeb 3.0-0.5 MG/3 ML] 3 ml NEB Q4H PRN Bisacodyl [Dulcolax] 5 mg PO DAILY PRN Docusate Sodium [Colace] 100 mg PO BID PRN Docusate Sodium/Sennosides [Senna Plus] 1 tab PO BID PRN HYDROmorphone [Dilaudid] 0.25 mg IVPUSH Q2H PRN Ondansetron [Zofran] 4 mg IV Q6H PRN Polyethylene Glycol 3350 [MiraLAX] 17 gm PO DAILY PRN Promethazine [Phenergan] 12.5 mg Sodium Chloride 0.9% [Normal Saline] 50 ml IV Q6H oxyCODONE 5 mg PO Q4H PRN Resuscitation Status Routine 04/14/17 20:57 Intake and Output [RC] 04,16 Sequential Compression Device [OM.PC] Per Unit Routine 04/14/17 21:00 Admission Status [Patient Status] [ADT] Routine RT Aerosol Therapy [RC] ASDIRECTED 04/14/17 21:02 Consult to Case Management [CONS] Routine Consult to Physician [CONS] Routine Consult to Human Resources Temp [CONS] Routine Consult to Spiritual Care [CONS] Routine OT Evaluation and Treatment [CONS] Routine PT Evaluation and Treatment [CONS] Routine chlordiazePOXIDE [Librium] 25 mg PO Q8H PRN cloNIDine [Catapres] 0.1 mg PO Q4H PRN Seizure Precautions [OM.PC] Routine 04/14/17 21:06 Notify Provider Consults [RC] ASDIRECTED 04/14/17 21:10 LORazepam [Ativan] 2 mg IVPUSH Q4H PRN LORazepam [Ativan] See Protocol IVPUSH Q4H PRN Metoprolol Tartrate [Lopressor] 5 mg IVPUSH Q4H PRN hydrALAZINE [Apresoline] 20 mg IVPUSH Q4H PRN 04/14/17 21:15 Magnesium Rep Pharmacy to Dose [Pharmacy to Dose - Magnesium Replacement] 1 dose .XX ASDIRECTED Potassium Rep Pharmacy to Dose [Pharmacy to Dose - Potassium Replacement] 1 dose .XX ASDIRECTED Sodium Chloride 0.9% [Normal Saline] 1,000 ml IV ASDIRECTED chlordiazePOXIDE [Librium] See Protocol PO ASDIRECTED 04/14/17 21:42 SCD [Sequential Compression Device] [OM.PC] Routine 04/14/17 Dinner Regular Diet [DIET] 04/15/17 09:00 Famotidine [Pepcid] 20 mg PO Q12H Folic Acid 1 mg PO DAILY Metoprolol Succinate [Toprol XL] 25 mg PO DAILY Multivitamins,Therapeutic [Thera] 1 each PO DAILY QUEtiapine [SEROquel] 25 mg PO BID Thiamine [Vitamin B-1] 100 mg PO DAILY Topiramate [Topamax] 25 mg PO BID 04/15/17 18:00 Warfarin [Coumadin] 4 mg PO DAILY@1800 04/16/17 05:11 BASIC METABOLIC PANEL,BMP [CHEM] AM INR,PT,PROTHROMBIN TIME [COAG] AM MAGNESIUM [CHEM] AM 04/17/17 05:11 BASIC METABOLIC PANEL,BMP [CHEM] AM INR,PT,PROTHROMBIN TIME [COAG] AM MAGNESIUM [CHEM] AM 04/18/17 05:11 BASIC METABOLIC PANEL,BMP [CHEM] AM INR,PT,PROTHROMBIN TIME [COAG] AM MAGNESIUM [CHEM] AM 04/19/17 05:11 BASIC METABOLIC PANEL,BMP [CHEM] AM MAGNESIUM [CHEM] AM - Plan Plan:: Assessment/Plan: Acute: ETOH Intoxication - KALEE level is 0.46 - CIWA protocol: CIWA score is 6 this am - Ativan/Librium/Clonidine/Topamax - IVP Hydralazine and BB for HR/BP control - Ativan for Abortive Seizure and Withdrawal Symptoms - He was recently discharged from [facility] - He wants to get help to get better and would prefer to go back to [facility] - Tele-psych consult pending - He refused SA/Yossi Champagne consult ETOH Abuse - Acute on Chronic - he drinks beer and fireball - His last drink was about about 1600 today - CIWA Protocol - Counseled on Substance Abuse - Refuses SA/Yossi Champagne consult Hypomagnesemia - Mg 1.7 - 2/2 inadequate intake - Replete and monitor Chronic: HVR on Warfarin, INR is stable /AR HV Disease 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
[2017-04-15] MEDS: Multivitamins,Therapeutic Tab PO SCH (09:03)
[2017-04-15] MEDS: QUEtiapine 25 MG Tab PO SCH ×2 (09:04→20:36)
[2017-04-15] MEDS: Thiamine 100 MG Tab PO SCH (09:04)
[2017-04-15] MEDS: Folic Acid 1 MG Tab PO SCH (09:04)
[2017-04-15] MEDS: Topiramate 25 MG Tab PO SCH ×2 (09:04→20:36)
[2017-04-15] MEDS: Famotidine 20 MG Tab PO SCH ×2 (09:04→20:36)
[2017-04-15] MEDS: Metoprolol Succinate 25 MG Tab.ER PO SCH (09:05)
[2017-04-15] MEDS ORDERED: Magnesium Sulfate/Water 2 GM in Premix Bag 1 BAG IV ONE (12:00)
[2017-04-15] MEDS: FLUoxetine 20 MG Cap PO SCH (14:22)
[2017-04-15] MEDS: chlordiazePOXIDE 25 MG Cap PO PRN (14:47)
[2017-04-15] MEDS ORDERED: Warfarin 2 MG Tab PO SCH (18:00)
[2017-04-15] MEDS: LORazepam 2 MG/ML MDV IVPUSH PRN (20:53)
--- NOTE | 2017-04-15 22:00 | CONS ---
CONSULTING PHYSICIAN: Micah Bazzi MD DATE OF CONSULTATION: 04/15/2017 This is a 60-minute inpatient clinic event. IDENTIFICATION: The patient is a 46-year-old male who was admitted to the inpatient MICU at [facility] in [place], [place] on 04/14/2017. He is seen for psychiatric evaluation today. CHIEF COMPLAINT: "I just drank too much. It is binge drinking scene for me." HISTORY OF PRESENT ILLNESS: The patient is a 46-year-old male who reports that he is currently in outpatient chemical dependency treatment at [facility]. He has been trying to stay sober, but he recently relapsed and started drinking about 1 pint a day of "beer and fire balls" for the past number of days until his friend "called the hospital for me." He states he is depressed and knows "I get depressed and I drink to make it go away and that just makes it worse." He was admitted with a BAL of 0.46. He endorses mood swings in addition to his depression. He reports poor sleep patterns. He does have good energy and good interest levels when he is able to maintain sobriety, but at this point in time, he is stating that he is open to trying antidepressant to see if that will help stating, "I am open for anything at this point." He states that he has been in the hospital before and he has tried to do without any psychiatric medications, but perhaps this is an occasion where he might benefit from the medication in terms of helping his mood and helping to maintain sobriety. At this point in time, the patient denies that he is suicidal or homicidal. He denies any psychotic, delusional, or paranoid symptoms. MEDICATIONS: At the time of presentation, 1. Lopressor. 2. Pepcid. 3. Coumadin. ALLERGIES: No known drug allergies. PAST MEDICAL HISTORY: 1. History of aortic valve replacement. 2. History of hepatic cancer. 3. Status post left nephrectomy with history of dialysis back in 2016. 4. History of aortic stenosis. REVIEW OF SYSTEMS: Aside from GI, cardiovascular, nephrologic, all other major organ systems are negative at this point in time for acute difficulties or complications. FAMILY PSYCHIATRIC AND CD HISTORY: Unknown as the patient states he was adopted at . PAST PSYCHIATRIC AND CD HISTORY: The patient denies any previous psychiatric hospitalizations. He is currently in outpatient treatment at [facility]. He does have a previous treatment to that, that was at [facility] on an inpatient basis. Denies any DWIs. He began drinking in his teens. Longest sobriety was 4-1/2 years between 2008 and 2012. The patient has been to AA in the past. He denies any previous suicide attempts, self-injurious behaviors, or eating disorder history. Denies any past psychiatric medication history. SOCIAL HISTORY: The patient was born and raised in [place]. He is the oldest of 2 siblings and 1 sister. The patient's parents were throughout childhood and adolescence. Father worked for the [employer]. Mother worked for [employer]. The patient's level of education is a high school diploma. 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 He has never been . He has no children. He is not involved in any current relationships. He is living with a roommate in [place], [place]. He denies any prior service or current legal difficulties. Alevism in terms of his katharina formation. Enjoys spending time with his cat who just recently had 6 kittens, working out, and building and fabricating activities. MENTAL STATUS EXAM: The patient is a 46-year-old soft-spoken white male, in no apparent distress. Speech is of regular rate and rhythm. The patient is cognitively oriented. Psychomotor activity is within normal limits. There are no abnormal motor movements or tics observed. Gait and station are not observed, as the patient is bedbound during the course of the interview. Mood is depressed. Affect is consistent with stated mood. There is no behavioral or stated evidence of acute suicidal or homicidal ideation or acute psychotic, delusional, or paranoid symptoms. Thought processes are organized overall. There are no acute manic symptoms or loose associations evident. Judgment and insight appear unimpaired. Motivation for help appears fair to good. VITALS: 109/66, 80, 13, 97.8 degrees. IMPRESSION: [place] I: 1. Alcohol dependence, F10.20. 2. Major depressive disorder, F32.3. 3. Anxiety disorder, not otherwise specified, F41.9. 4. Rule out bipolar affective disease. [place] II: None. [place] III: 1. History of aortic valve replacement. 2. History of aortic stenosis. 3. History of hepatic cancer. 4. Status post left nephrectomy with history of dialysis in 2016. [place] V: 55. PLAN: 1. Sobriety. 2. Pastoral guidance. 3. AA rep to visit the patient while the patient remains on the inpatient unit. 4. Begin Prozac 20 mg q.a.m. to help with mood. 5. Begin Seroquel 50 mg q.h.s. to help with clarity of thought and to prevent any psychotic symptoms from possible alcohol withdrawal, as the patient was admitted with BAL of 0.46. 6. Begin Topamax 25 mg b.i.d. for mood stability, anxiety reduction, and seizure prophylaxis. 7. Folic acid supplementation. 8. Thiamine supplementation. 9. Ativan p.r.n. per [facility] protocol. 10.The patient apprised of benefits and side effects of his newly initiated psychiatric medication regimen. He acknowledges his understanding of these facts and had no questions by the end of the interview session. 11.Recommend the patient follow up with Outpatient Psychiatry once he is medically stabilized and discharged back to community to assess his overall function, efficacy of his newly initiated psychiatric medication regimen. 12.Recommend the patient resume his outpatient treatment at [facility] once he is medically stabilized and discharged back to the community. 13.If the patient is unable to maintain sobriety with outpatient chemical dependency treatments and on his own, it is recommended that he go into inpatient chemical dependency treatment going forward. 14.We will continue to follow up with the patient on a regular basis as needed while he remains on the inpatient medical unit. 15.We will follow up with the patient sooner if any complications in the interim. 16.Crisis plan is in place. MMODAL /[id number]
[2017-04-16] MEDS: Sodium Chloride 0.9% 1,000 ML IV SCH (06:53)
--- NOTE | 2017-04-16 07:48 | PCM.PN ---
- General Info Date of Service: 04/16/17 Admission Dx/Problem (Free Text): Alcohol Intoxication Subjective Update: Follow Up Functional Status: Reports: Pain Controlled, Tolerating Diet, Ambulating, Urinating - Patient Data Vitals - Most Recent: Last Vital Signs Temp 36.8 C 04/16/17 04:00 Pulse 63 04/16/17 04:00 Resp 19 04/16/17 04:00 BP 104/60 04/16/17 04:00 Pulse Ox 97 04/16/17 04:00 Weight - Most Recent: 66.497 kg I&O - Last 24 Hours: Intake & Output 04/15/17 04/16/17 04/16/17 22:59 06:59 14:59 Intake Total 2000 1449 Output Total 600 700 Balance 1400 749 Lab Results Last 24 Hours: Laboratory Results - last 24 hr 04/16/17 04/16/17 Range/Units 05:38 05:38 PT 43.2 H (8.0-13.0) SECONDS INR 3.65 Sodium 139 (136-145) mEq/L Potassium 4.0 (3.5-5.1) mEq/L Chloride 107 (98-107) mEq/L Carbon Dioxide 25 (21-32) mEq/L Anion Gap 11.0 (5-15) BUN 16 (7-18) mg/dL Creatinine 1.1 (0.7-1.3) mg/dL Est Cr Clr Drug Dosing 77.62 mL/min Estimated GFR (MDRD) > 60 (>60) mL/min BUN/Creatinine Ratio 14.5 (14-18) Glucose 80 (74-106) mg/dL Calcium 7.7 L (8.5-10.1) mg/dL Magnesium 1.9 (1.8-2.4) mg/dl Med Orders - Current: Current Medications Acetaminophen (Tylenol) 650 mg PO Q4H PRN PRN Reason: Pain (Mild 1-3)/fever Albuterol/Ipratropium (Duoneb 3.0-0.5 Mg/3 Ml) 3 ml NEB Q4H PRN PRN Reason: Shortness Of Breath/wheezing Bisacodyl (Dulcolax) 5 mg PO DAILY PRN PRN Reason: Constipation Chlordiazepoxide HCl (Librium) 0 mg PO ASDIRECTED SHERLY PRN Reason: Protocol Chlordiazepoxide HCl (Librium) 25 mg PO Q8H PRN PRN Reason: Withdrawal Symptoms Last Admin: 04/15/17 14:47 Dose: 25 mg Clonidine HCl (Catapres) 0.1 mg PO Q4H PRN PRN Reason: Agitation Docusate Sodium (Colace) 100 mg PO BID PRN PRN Reason: Constipation Famotidine (Pepcid) 20 mg PO Q12H [facility] Last Admin: 04/15/17 20:36 Dose: 20 mg Fluoxetine HCl (Prozac) 20 mg PO DAILY [facility] Last Admin: 04/15/17 14:22 Dose: 20 mg Folic Acid (Folic Acid) 1 mg PO DAILY [facility] Stop: 04/17/17 09:01 Last Admin: 04/15/17 09:04 Dose: 1 mg Hydralazine HCl (Apresoline) 20 mg IVPUSH Q4H PRN PRN Reason: Hypertension Hydromorphone HCl (Dilaudid) 0.25 mg IVPUSH Q2H PRN PRN Reason: Pain (severe 7-10) Promethazine HCl 12.5 mg/ (Sodium Chloride) 50.5 mls @ 100 mls/hr IV Q6H PRN PRN Reason: Nausea/Vomiting Sodium Chloride (Normal Saline) 1,000 mls @ 125 mls/hr IV ASDIRECTED [facility] Last Admin: 04/16/17 06:53 Dose: 125 mls/hr Lorazepam (Ativan) 2 mg IVPUSH Q4H PRN PRN Reason: Seizures Lorazepam (Ativan) 0 mg IVPUSH Q4H PRN; Protocol PRN Reason: Withdrawal Symptoms Last Admin: 04/15/17 20:53 Dose: 1 mg Magnesium Sulfate (Pharmacy To Dose - Magnesium Replacement) 0 dose .XX ASDIRECTED PRN PRN Reason: RX TO WATCH MAG LEVELS Metoprolol Succinate (Toprol Xl) 25 mg PO DAILY [facility] Last Admin: 04/15/17 09:05 Dose: 25 mg Metoprolol Tartrate (Lopressor) 5 mg IVPUSH Q4H PRN PRN Reason: Tachycardia Last Admin: 04/15/17 02:54 Dose: 5 mg Multivitamins (Thera) 1 each PO DAILY [facility] Last Admin: 04/15/17 09:03 Dose: 1 each Ondansetron HCl (Zofran) 4 mg IV Q6H PRN PRN Reason: Nausea/Vomiting Oxycodone HCl (Oxycodone) 5 mg PO Q4H PRN PRN Reason: Pain (moderate 4-6) Polyethylene Glycol (Miralax) 17 gm PO DAILY PRN PRN Reason: Constipation Potassium Chloride (Pharmacy To Dose - Potassium Replacement) 0 dose .XX ASDIRECTED PRN PRN Reason: RX TO WATCH K LEVELS Quetiapine Fumarate (Seroquel) 25 mg PO BID [facility] Last Admin: 04/15/17 20:36 Dose: 25 mg Senna/Docusate Sodium (Senna Plus) 1 tab PO BID PRN PRN Reason: Constipation Thiamine HCl (Vitamin B-1) 100 mg PO DAILY [facility] Last Admin: 04/15/17 09:04 Dose: 100 mg Topiramate (Topamax) 25 mg PO BID [facility] Last Admin: 04/15/17 20:36 Dose: 25 mg Warfarin Sodium (Coumadin) 4 mg PO DAILY@1800 [facility] Last Admin: 04/15/17 18:30 Dose: 4 mg Discontinued Medications Diphenhydramine HCl (Benadryl) 50 mg IVPUSH ONETIME ONE Stop: 04/14/17 21:14 Last Admin: 04/14/17 21:34 Dose: 50 mg Folic Acid (Folic Acid) 1 mg SUBCUT ONETIME ONE Stop: 04/14/17 21:03 Last Admin: 04/14/17 21:49 Dose: 1 mg Sodium Chloride (Normal Saline) 1,000 mls @ 999 mls/hr IV ONETIME ONE Stop: 04/14/17 18:57 Last Admin: 04/14/17 18:06 Dose: 999 mls/hr Sodium Chloride (Normal Saline) 1,000 mls @ 250 mls/hr IV ONETIME ONE Stop: 04/14/17 23:08 Last Admin: 04/14/17 19:20 Dose: 250 mls/hr Thiamine HCl 200 mg/ Sodium (Chloride) 100 mls @ 100 mls/hr IV ONETIME ONE Stop: 04/14/17 22:01 Last Admin: 04/14/17 22:01 Dose: 100 mls/hr Magnesium Sulfate 2 gm/ Premix 50 mls @ 25 mls/hr IV ONETIME ONE Stop: 04/15/17 13:59 Last Admin: 04/15/17 12:14 Dose: 25 mls/hr Lorazepam (Ativan) 2 mg IVPUSH ONETIME ONE PRN Reason: Protocol Stop: 04/14/17 19:53 Last Admin: 04/14/17 21:35 Dose: 2 mg Ondansetron HCl (Zofran) 4 mg IVPUSH ONETIME ONE Stop: 04/14/17 17:58 Last Admin: 04/14/17 18:06 Dose: 4 mg Pantoprazole Sodium (Protonix Iv) 40 mg .XX ONETIME ONE Stop: 04/14/17 20:57 Last Admin: 04/14/17 21:35 Dose: 40 mg Quetiapine Fumarate (Seroquel) 50 mg PO ONETIME ONE Stop: 04/14/17 21:12 Last Admin: 04/14/17 21:34 Dose: 50 mg Topiramate (Topamax) 50 mg PO NOW STA Stop: 04/14/17 21:13 Last Admin: 04/14/17 21:34 Dose: 50 mg - My Orders Last 24 Hours: My Active Orders 04/15/17 09:00 Famotidine [Pepcid] 20 mg PO Q12H Folic Acid 1 mg PO DAILY Metoprolol Succinate [Toprol XL] 25 mg PO DAILY Multivitamins,Therapeutic [Thera] 1 each PO DAILY QUEtiapine [SEROquel] 25 mg PO BID Thiamine [Vitamin B-1] 100 mg PO DAILY Topiramate [Topamax] 25 mg PO BID 04/15/17 18:00 Warfarin [Coumadin] 4 mg PO DAILY@1800 04/17/17 05:11 BASIC METABOLIC PANEL,BMP [CHEM] AM INR,PT,PROTHROMBIN TIME [COAG] AM MAGNESIUM [CHEM] AM 04/18/17 05:11 BASIC METABOLIC PANEL,BMP [CHEM] AM INR,PT,PROTHROMBIN TIME [COAG] AM MAGNESIUM [CHEM] AM 04/19/17 05:11 BASIC METABOLIC PANEL,BMP [CHEM] AM MAGNESIUM [CHEM] AM - Plan Plan:: Assessment/Plan: Acute: ETOH Intoxication - KALEE level is 0.46 - CIWA protocol: CIWA score is 6 this am - Ativan/Librium/Clonidine/Topamax - IVP Hydralazine and BB for HR/BP control - Ativan for Abortive Seizure and Withdrawal Symptoms - He was recently discharged from [facility] - He wants to get help to get better and would prefer to go back to [facility] - Tele-psych consult pending - He refused /Yossi Champagne consult ETOH Abuse - Acute on Chronic - he drinks beer and fireball - His last drink was about about 1600 today - CIWA Protocol - Counseled on Substance Abuse - Refuses /Yossi Champagne consult Hypomagnesemia - Mg 1.7 - 2/2 inadequate intake - Replete and monitor Chronic: HVR on Warfarin, INR is stable /AR HV Disease 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
[2017-04-16 08:41] VITALS: BP 118/75
[2017-04-16] MEDS: Multivitamins,Therapeutic Tab PO SCH (09:53)
[2017-04-16] MEDS: QUEtiapine 25 MG Tab PO SCH (09:53)
[2017-04-16] MEDS: Thiamine 100 MG Tab PO SCH (09:53)
[2017-04-16] MEDS: Famotidine 20 MG Tab PO SCH (09:54)
[2017-04-16] MEDS: FLUoxetine 20 MG Cap PO SCH (09:54)
[2017-04-16] MEDS: Metoprolol Succinate 25 MG Tab.ER PO SCH (09:55)
[2017-04-16] MEDS: chlordiazePOXIDE 25 MG Cap PO PRN (09:56)
[2017-04-16] MEDS: Topiramate 25 MG Tab PO SCH (09:57)
[2017-04-16] MEDS: Folic Acid 1 MG Tab PO SCH (10:01)
--- NOTE | 2017-04-16 11:45 | PCM.DCSUM1 ---
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 - Discharge Data Discharge Date: 04/16/17 Discharge Disposition: Home, Self-Care 01 Condition: Undetermined - Discharge Diagnosis/Problem(s) (1) Major depression SNOMED Code(s): 257560451 ICD Code: F32.9 - MAJOR DEPRESSIVE DISORDER, SINGLE EPISODE, UNSPECIFIED Status: Acute Qualifiers: Major depression recurrence: single episode Active/Remission status: in remission of unspecified degree Qualified Code(s): F32.5 - Major depressive disorder, single episode, in full remission (2) Anxiety SNOMED Code(s): 37298638 ICD Code: F41.9 - ANXIETY DISORDER, UNSPECIFIED Status: Acute (3) Alcohol abuse SNOMED Code(s): 28839938 ICD Code: F10.10 - ALCOHOL ABUSE, UNCOMPLICATED Status: Chronic (4) Alcohol intoxication SNOMED Code(s): 12837578 ICD Code: F10.129 - ALCOHOL ABUSE WITH INTOXICATION, UNSPECIFIED Status: Resolved Priority: High - Patient Summary/Data Operative Procedure(s) Performed: None Complications: None Consults: Consultations 04/14/17 21:02 Consult to Case Management [CONS] Routine Consult to Physician [CONS] Routine Consult to Product Support Technician [CONS] Routine Consult to Spiritual Care [CONS] Routine OT Evaluation and Treatment [CONS] Routine PT Evaluation and Treatment [CONS] Routine Labs Pending at D/C: None Recommended Follow-up Testing/Procedures: None Planned Operative Procedure(s) after DC: None Hospital Course: Patient was primarily admitted for alcohol detoxification. He carried a hx/o chronic alcohol abuse/use. He was recently discharged from [facility] not too long ago but he relapsed. On this admission, he was treated mainly with supportive care and placed on CIWA protocol. The patient improved on this regimen. SA consult was offered but refused it. However AA rep visited him with plans to return to [facility] after discharge. Dr. Bazzi also saw him via tele-psych. He was diagnosed with MDD/Anxiety and put on Prozac for mood stability. His hospital course was uncomplicated and the rest of his chronic medical illness remained stable during this admission. Patient was stable on the day of discharge. He was advised to call ROSANNA Montoya at [facility] to set up his outpatient counseling after discharge. He was further advised to follow up with his PCP in 1 week as needed. - Patient Instructions Diet: Usual Diet as Tolerated Activity: As Tolerated Driving: May Drive Today Showering/Bathing: May Shower Notify Provider of: Fever, Nausea and/or Vomiting Other/Special Instructions: - Please take all medications as directed. - Avoid ETOH! - Resume routine home activities w/o restrictions. - Should you experience alcohol crisis or the urge to drink, call Jan at [facility] or your family doctor for further advise. - Follow up with your family doctor in 1 week - Discharge Plan Prescriptions/Med Rec: FLUoxetine [PROzac] 20 mg PO DAILY #30 cap Home Medications: Home Meds Metoprolol Succinate [Toprol XL] 25 mg PO DAILY #30 tab.er 02/08/17 [Rx] Warfarin [Coumadin] 4 mg PO DAILY #30 tablet 02/08/17 [Rx] FLUoxetine [PROzac] 20 mg PO DAILY #30 cap 04/16/17 [Rx] Patient Handouts: Alcohol Use Disorder Referrals: PCP,None [Primary Care Provider] - - Discharge Summary/Plan Comment DC Time >30 min.: Yes (45 mins) Discharge Summary/Plan Comment: Discharge to Home - General Info Date of Service: 04/16/17 Admission Dx/Problem (Free Text: Alcohol Intoxication Subjective Update: Follow Up Functional Status: Reports: Pain Controlled, Tolerating Diet, Ambulating, Urinating. Denies: New Symptoms - Review of Systems General: Denies: Fever, Weakness, Fatigue, Malaise, Chills HEENT: Reports: No Symptoms Pulmonary: Denies: Shortness of Breath Cardiovascular: Denies: Chest Pain Gastrointestinal: Denies: Abdominal Pain, Nausea, Vomiting Genitourinary: Reports: No Symptoms Musculoskeletal: Reports: No Symptoms Skin: Denies: Cyanosis, Mottled, Pallor, Diaphoresis Neurological: Denies: Confusion, Seizure, Difficulty Walking, Weakness, Gait Disturbance Psychiatric: Denies: Depression, Anxiety, Agitation, Hallucinations, Suicidal Ideation Systems Review Comment: No overnight or acute issues. He is relatively well. He feels good and reports no complaints. - Patient Data Vitals - Most Recent: Last Vital Signs Temp 36.8 C 04/16/17 08:00 Pulse 108 H 04/16/17 09:55 Resp 18 04/16/17 08:00 BP 118/75 04/16/17 09:55 Pulse Ox 98 04/16/17 08:00 Weight - Most Recent: 66.497 kg I&O - Last 24 hours: Intake & Output 04/15/17 04/16/17 04/16/17 22:59 06:59 14:59 Intake Total 2060 1449 Output Total 600 700 Balance 1460 749 Lab Results - Last 24 hrs: Laboratory Results - last 24 hr 04/16/17 04/16/17 Range/Units 05:38 05:38 PT 43.2 H (8.0-13.0) SECONDS INR 3.65 Sodium 139 (136-145) mEq/L Potassium 4.0 (3.5-5.1) mEq/L Chloride 107 (98-107) mEq/L Carbon Dioxide 25 (21-32) mEq/L Anion Gap 11.0 (5-15) BUN 16 (7-18) mg/dL Creatinine 1.1 (0.7-1.3) mg/dL Est Cr Clr Drug Dosing 77.62 mL/min Estimated GFR (MDRD) > 60 (>60) mL/min BUN/Creatinine Ratio 14.5 (14-18) Glucose 80 (74-106) mg/dL Calcium 7.7 L (8.5-10.1) mg/dL Magnesium 1.9 (1.8-2.4) mg/dl Med Orders - Current: Current Medications Acetaminophen (Tylenol) 650 mg PO Q4H PRN PRN Reason: Pain (Mild 1-3)/fever Albuterol/Ipratropium (Duoneb 3.0-0.5 Mg/3 Ml) 3 ml NEB Q4H PRN PRN Reason: Shortness Of Breath/wheezing Bisacodyl (Dulcolax) 5 mg PO DAILY PRN PRN Reason: Constipation Chlordiazepoxide HCl (Librium) 0 mg PO ASDIRECTED SHERLY PRN Reason: Protocol Chlordiazepoxide HCl (Librium) 25 mg PO Q8H PRN PRN Reason: Withdrawal Symptoms Last Admin: 04/16/17 09:56 Dose: 25 mg Clonidine HCl (Catapres) 0.1 mg PO Q4H PRN PRN Reason: Agitation Docusate Sodium (Colace) 100 mg PO BID PRN PRN Reason: Constipation Famotidine (Pepcid) 20 mg PO Q12H [facility] Last Admin: 04/16/17 09:54 Dose: 20 mg Fluoxetine HCl (Prozac) 20 mg PO DAILY [facility] Last Admin: 04/16/17 09:54 Dose: 20 mg Folic Acid (Folic Acid) 1 mg PO DAILY [facility] Stop: 04/17/17 09:01 Last Admin: 04/16/17 10:01 Dose: 1 mg Hydralazine HCl (Apresoline) 20 mg IVPUSH Q4H PRN PRN Reason: Hypertension Hydromorphone HCl (Dilaudid) 0.25 mg IVPUSH Q2H PRN PRN Reason: Pain (severe 7-10) Promethazine HCl 12.5 mg/ (Sodium Chloride) 50.5 mls @ 100 mls/hr IV Q6H PRN PRN Reason: Nausea/Vomiting Sodium Chloride (Normal Saline) 1,000 mls @ 125 mls/hr IV ASDIRECTED [facility] Last Admin: 04/16/17 06:53 Dose: 125 mls/hr Lorazepam (Ativan) 2 mg IVPUSH Q4H PRN PRN Reason: Seizures Lorazepam (Ativan) 0 mg IVPUSH Q4H PRN; Protocol PRN Reason: Withdrawal Symptoms Last Admin: 04/15/17 20:53 Dose: 1 mg Magnesium Sulfate (Pharmacy To Dose - Magnesium Replacement) 0 dose .XX ASDIRECTED PRN PRN Reason: RX TO WATCH MAG LEVELS Metoprolol Succinate (Toprol Xl) 25 mg PO DAILY [facility] Last Admin: 04/16/17 09:55 Dose: 25 mg Metoprolol Tartrate (Lopressor) 5 mg IVPUSH Q4H PRN PRN Reason: Tachycardia Last Admin: 04/15/17 02:54 Dose: 5 mg Multivitamins (Thera) 1 each PO DAILY [facility] Last Admin: 04/16/17 09:53 Dose: 1 each Ondansetron HCl (Zofran) 4 mg IV Q6H PRN PRN Reason: Nausea/Vomiting Oxycodone HCl (Oxycodone) 5 mg PO Q4H PRN PRN Reason: Pain (moderate 4-6) Polyethylene Glycol (Miralax) 17 gm PO DAILY PRN PRN Reason: Constipation Potassium Chloride (Pharmacy To Dose - Potassium Replacement) 0 dose .XX ASDIRECTED PRN PRN Reason: RX TO WATCH K LEVELS Quetiapine Fumarate (Seroquel) 25 mg PO BID [facility] Last Admin: 04/16/17 09:53 Dose: 25 mg Senna/Docusate Sodium (Senna Plus) 1 tab PO BID PRN PRN Reason: Constipation Thiamine HCl (Vitamin B-1) 100 mg PO DAILY [facility] Last Admin: 04/16/17 09:53 Dose: 100 mg Topiramate (Topamax) 25 mg PO BID [facility] Last Admin: 04/16/17 09:57 Dose: 25 mg Warfarin Sodium (Coumadin) 4 mg PO DAILY@1800 [facility] Last Admin: 04/15/17 18:30 Dose: 4 mg Discontinued Medications Diphenhydramine HCl (Benadryl) 50 mg IVPUSH ONETIME ONE Stop: 04/14/17 21:14 Last Admin: 04/14/17 21:34 Dose: 50 mg Folic Acid (Folic Acid) 1 mg SUBCUT ONETIME ONE Stop: 04/14/17 21:03 Last Admin: 04/14/17 21:49 Dose: 1 mg Sodium Chloride (Normal Saline) 1,000 mls @ 999 mls/hr IV ONETIME ONE Stop: 04/14/17 18:57 Last Admin: 04/14/17 18:06 Dose: 999 mls/hr Sodium Chloride (Normal Saline) 1,000 mls @ 250 mls/hr IV ONETIME ONE Stop: 04/14/17 23:08 Last Admin: 04/14/17 19:20 Dose: 250 mls/hr Thiamine HCl 200 mg/ Sodium (Chloride) 100 mls @ 100 mls/hr IV ONETIME ONE Stop: 04/14/17 22:01 Last Admin: 04/14/17 22:01 Dose: 100 mls/hr Magnesium Sulfate 2 gm/ Premix 50 mls @ 25 mls/hr IV ONETIME ONE Stop: 04/15/17 13:59 Last Admin: 04/15/17 12:14 Dose: 25 mls/hr Lorazepam (Ativan) 2 mg IVPUSH ONETIME ONE PRN Reason: Protocol Stop: 04/14/17 19:53 Last Admin: 04/14/17 21:35 Dose: 2 mg Ondansetron HCl (Zofran) 4 mg IVPUSH ONETIME ONE Stop: 04/14/17 17:58 Last Admin: 04/14/17 18:06 Dose: 4 mg Pantoprazole Sodium (Protonix Iv) 40 mg .XX ONETIME ONE Stop: 04/14/17 20:57 Last Admin: 04/14/17 21:35 Dose: 40 mg Quetiapine Fumarate (Seroquel) 50 mg PO ONETIME ONE Stop: 04/14/17 21:12 Last Admin: 04/14/17 21:34 Dose: 50 mg Topiramate (Topamax) 50 mg PO NOW STA Stop: 04/14/17 21:13 Last Admin: 04/14/17 21:34 Dose: 50 mg - Exam General: Reports: Alert, Oriented, Cooperative, No Acute Distress HEENT: Reports: Pupils Equal, Pupils Reactive, EOMI, Mucous Membr. Moist/[place] Neck: Reports: Supple, Trachea Midline, No JVD Lungs: Reports: Clear to Auscultation, Normal Respiratory Effort Cardiovascular: Reports: Regular Rate, Regular Rhythm, Murmurs GI/Abdominal Exam: Normal Bowel Sounds, Soft, Non-Tender, No Organomegaly, No Distention, No Abnormal Bruit (Male) Exam: Deferred Rectal (Males) Exam: Deferred Back Exam: Reports: Normal Inspection, Full Range of Motion Extremities: Normal Inspection, Normal Range of Motion, Non-Tender, No Pedal Edema, Normal Capillary Refill Skin: Reports: Warm, Dry, Intact Neurological: Reports: No New Focal Deficit Psy/Mental Status: Reports: Alert, Normal Affect, Normal Mood *Q Meaningful Use (DIS) - VTE *Q VTE Criteria *Q: - Stroke *Q Stroke Criteria *Q: - AMI *Q AMI Criteria *Q:
== END 2017-04-16 12:45 | disposition home or self-care (01) | DRG 897 ==
LOC: JD.ED 17:06 → JD.ICU 20:32
PROVIDERS: ADMIT Internal Medicine; ATTEND Internal Medicine
PROC: HZ2ZZZZ Detoxification Services for Substance Abuse Treatment (ICD-10-PCS; principal; 2017-04-14)
DX: F10.229 Alcohol dependence with intoxication, unspecified (principal); F32.3 Major depressive disorder, single episode, severe with psychotic features; Y90.2 Blood alcohol level of 40-59 mg/100 ml; E83.42 Hypomagnesemia; N28.89 Other specified disorders of kidney and ureter; F41.9 Anxiety disorder, unspecified; Z95.2 Presence of prosthetic heart valve; Z79.01 Long term (current) use of anticoagulants; Z85.118 Personal history of other malignant neoplasm of bronchus and lung; Z85.528 Personal history of other malignant neoplasm of kidney; Z87.891 Personal history of nicotine dependence; Z79.899 Other long term (current) drug therapy
CPT/HCPCS: 36415; 80048; 80053; 80306; 81001; 83690; 83735; 84443; 85025; 85610; 96361; 96374; 96375; 97161-GP; 97165-GO; 99284; 99285-25; A9270-GY; C9113; G0480; J1200; J2060; J2405; J3411; J3475; J3490; J7030; J7040

== ENCOUNTER 2017-08-02 14:19 | Emergency (ER) | payer MEDICAID ==
[2017-08-02 15:03] VITALS: BP 124/88
[2017-08-02] MEDS ORDERED: Sodium Chloride 0.9% 10 ML Syringe FLUSH PRN (16:04)
[2017-08-02] MEDS ORDERED: Lactated Ringers 1,000 ML IV ONE (16:04)
[2017-08-02] MEDS ORDERED: Folic Acid 1 MG Tab PO ONE (16:04)
[2017-08-02] MEDS ORDERED: Potassium Chloride 20 MEQ Tab.ER PO ONE (16:05)
[2017-08-02] MEDS ORDERED: Ondansetron 4 MG/2 ML SDV IVPUSH ONE (16:05)
--- NOTE | 2017-08-02 20:34 | EDM.PDOCBH ---
ED HPI GENERAL MEDICAL PROBLEM - General Chief Complaint: Drug or Alcohol Abuse Stated Complaint: ALCOHOL DETOX Time Seen by Provider: 08/02/17 15:40 Source of Information: Reports: Patient, Old Records History Limitations: Reports: No Limitations - History of Present Illness INITIAL COMMENTS - FREE TEXT/NARRATIVE: 46-year-old male presents for evaluation and treatment of alcohol detox. Patient reports he last had some alcohol prior to arrival in the ER. Normally drinks fireball whiskey and beer. Reports current symptoms of shakes. Denies any current headaches, nausea, vomiting, hallucinations or seizures. Patient reports never had any seizures or hallucinations with withdrawal. The patient's records show that he was admitted to the ICU for detox in February and April. Both hospitalizations were uneventful. Patient states he has been to multiple treatment facilities including [facility] , [facility] and [facility]. Patient is here requesting help today. He states that he cannot do this on his own. Has been in contact with [facility] bed is available. Generalized Pain Score (Numeric/FACES): 6 - Related Data Allergies Allergy/AdvReac Type Severity Reaction Status Date / Time No Known Allergies Allergy Verified 08/02/17 15:03 Home Meds: Home Meds Metoprolol Succinate [Toprol XL] 25 mg PO DAILY #30 tab.er 02/08/17 [Rx] Warfarin [Coumadin] 4 mg PO DAILY #30 tablet 02/08/17 [Rx] FLUoxetine [PROzac] 20 mg PO DAILY #30 cap 04/16/17 [Rx] LORazepam [Ativan] 1 mg PO Q6H PRN #15 tab 08/02/17 [Rx] Ondansetron [Zofran ODT] 4 mg PO Q6H PRN #12 tab.dis 08/02/17 [Rx] Past Medical History Cardiovascular History: Reports: Heart Valve Replacement Other Cardiovascular History: aortic stenosis, valvular heart disease, aortic regurgitation, is on coumadin Other Respiratory History: lung cancer at age 3 Gastrointestinal History: Reports: Colon Polyp Other Gastrointestinal History: globus sensation Genitourinary History: Reports: Dialysis Other Genitourinary History: 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 Kidney was removed. Social & Family History - Family History Family Medical History: Noncontributory - Tobacco Use Smoking Status *Q: Never Smoker Years of Tobacco use: 30 Packs/Tins Daily: 0.2 Used Tobacco, but Quit: Yes Month Tobacco Last Used: 06/2006 Second Hand Smoke Exposure: No - Caffeine Use Caffeine Use: Reports: Coffee - Alcohol Use Days Per Week of Alcohol Use: 7 Number of Drinks Per Day: 20 Total Drinks Per Week: 140 - Recreational Drug Use Recreational Drug Use: No Drug Use in Last 12 Months: No Recreational Drug Type: Reports: Methamphetamine Recreational Drug Use Frequency: Not Used In Over 6 Months Recreational Drug Last Use: 2009 ED ROS GENERAL - Review of Systems Review Of Systems: See Below Cardiovascular: Denies: Chest Pain GI/Abdominal: Denies: Abdominal Pain, Nausea, Vomiting Neurological: Reports: Tremors. Denies: Headache, Seizure Psychiatric: Denies: Hallucinations ED EXAM, BEHAVIORAL HEALTH - Physical Exam Exam: See Below Exam Limited By: Intoxication General Appearance: Alert, WD/WN, No Apparent Distress Eye Exam: Bilateral Eye: Normal Inspection Ears: Normal External Exam Nose: Normal Inspection Throat/Mouth: Normal Inspection, Normal Lips, Normal Voice, No Airway Compromise Respiratory/Chest: No Respiratory Distress, Lungs Clear, Normal Breath Sounds Cardiovascular: Normal Peripheral Pulses, Regular Rate, Rhythm, No Murmur GI/Abdominal: Soft, Non-Tender Neurological: Alert Psychiatric: Alert, Normal Affect, Normal Cognition, Normal Mood Skin Exam: Warm, Dry COURSE, BEHAVIORAL HEALTH COMP - Course Vital Signs: Last Vital Signs Temp 36.4 C 08/02/17 14:57 Pulse 96 08/02/17 14:57 Resp 16 08/02/17 14:57 BP 124/88 08/02/17 14:57 Pulse Ox 97 08/02/17 14:57 Orders, Labs, Meds: Laboratory Tests 08/02/17 08/02/17 08/02/17 Range/Units 15:05 15:05 15:05 WBC 7.30 (4.23-9.07) K/mm3 RBC 4.82 (4.63-6.08) M/mm3 Hgb 14.8 (13.7-17.5) gm/L Hct 43.6 (40.1-51.0) % MCV 90.5 (79.0-92.2) fl MCH 30.7 (25.7-32.2) pg MCHC 33.9 (32.2-35.5) g/dl RDW Std Deviation 46.3 H (35.1-43.9) fL Plt Count 330 (163-337) K/mm3 MPV 10.3 (9.4-12.3) fl Neut % (Auto) 61.4 (34.0-67.9) % Lymph % (Auto) 24.9 (21.8-53.1) % Pender % (Auto) 12.5 H (5.3-12.2) % Eos % (Auto) 0 L (0.8-7.0) Baso % (Auto) 1.1 (0.1-1.2) % Neut # (Auto) 4.48 (1.78-5.38) K/mm3 Lymph # (Auto) 1.82 (1.32-3.57) K/mm3 Pender # (Auto) 0.91 H (0.30-0.82) K/mm3 Eos # (Auto) 0.00 L (0.04-0.54) K/mm3 Baso # (Auto) 0.08 (0.01-0.08) K/mm3 PT 36.2 H (8.0-13.0) SECONDS INR 3.34 APTT 36 (22-36) SECONDS Sodium 140 (136-145) mEq/L Potassium 3.2 L (3.5-5.1) mEq/L Chloride 101 (98-107) mEq/L Carbon Dioxide 28 (21-32) mEq/L Anion Gap 14.2 (5-15) BUN 16 (7-18) mg/dL Creatinine 1.3 (0.7-1.3) mg/dL Est Cr Clr Drug Dosing TNP Estimated GFR (MDRD) 59 (>60) mL/min BUN/Creatinine Ratio 12.3 L (14-18) Glucose 237 H (74-106) mg/dL Calcium 8.4 L (8.5-10.1) mg/dL Magnesium 1.9 (1.8-2.4) mg/dl Total Bilirubin 0.5 (0.2-1.0) mg/dL AST 45 H (15-37) U/L ALT 28 (16-63) U/L Alkaline Phosphatase 80 (46-116) U/L Total Protein 8.2 (6.4-8.2) g/dl Albumin 3.7 (3.4-5.0) g/dl Globulin 4.5 gm/dL Albumin/Globulin Ratio 0.8 L (1-2) Urine Color (Yellow) Urine Appearance (Clear) Urine pH (5.0-8.0) Ur Specific [place] (1.005-1.030) Urine Protein (Negative) Urine Glucose (UA) (Negative) Urine Ketones (Negative) Urine Occult Blood (Negative) Urine Nitrite (Negative) Urine Bilirubin (Negative) Urine Urobilinogen (0.2-1.0) Ur Leukocyte Esterase (Negative) Urine RBC (0-5) /hpf Urine WBC (0-5) /hpf Ur Epithelial Cells (0-5) /hpf Urine Bacteria (FEW) /hpf Urine Mucus (FEW) /hpf Urine Opiates Screen (NEGATIVE) Ur Buprenorphine Scrn (NEGATIVE) Ur Oxycodone Screen (NEGATIVE) Urine Methadone Screen (NEGATIVE) Ur Propoxyphene Screen (NEGATIVE) Ur Barbiturates Screen (NEGATIVE) Ur Tricyclics Screen (NEGATIVE) Ur Phencyclidine Scrn (NEGATIVE) Ur Amphetamine Screen (NEGATIVE) U Methamphetamines Scrn (NEGATIVE) U Benzodiazepines Scrn (NEGATIVE) U Cocaine Metab Screen (NEGATIVE) U Marijuana (THC) Screen (NEGATIVE) Ethyl Alcohol 0.37 (0.00) gm% 08/02/17 08/02/17 08/02/17 Range/Units 15:05 15:10 15:10 WBC (4.23-9.07) K/mm3 RBC (4.63-6.08) M/mm3 Hgb (13.7-17.5) gm/L Hct (40.1-51.0) % MCV (79.0-92.2) fl MCH (25.7-32.2) pg MCHC (32.2-35.5) g/dl RDW Std Deviation (35.1-43.9) fL Plt Count (163-337) K/mm3 MPV (9.4-12.3) fl Neut % (Auto) (34.0-67.9) % Lymph % (Auto) (21.8-53.1) % Pender % (Auto) (5.3-12.2) % Eos % (Auto) (0.8-7.0) Baso % (Auto) (0.1-1.2) % Neut # (Auto) (1.78-5.38) K/mm3 Lymph # (Auto) (1.32-3.57) K/mm3 Pender # (Auto) (0.30-0.82) K/mm3 Eos # (Auto) (0.04-0.54) K/mm3 Baso # (Auto) (0.01-0.08) K/mm3 PT (8.0-13.0) SECONDS INR APTT (22-36) SECONDS Sodium (136-145) mEq/L Potassium (3.5-5.1) mEq/L Chloride (98-107) mEq/L Carbon Dioxide (21-32) mEq/L Anion Gap (5-15) BUN (7-18) mg/dL Creatinine (0.7-1.3) mg/dL Est Cr Clr Drug Dosing Estimated GFR (MDRD) (>60) mL/min BUN/Creatinine Ratio (14-18) Glucose (74-106) mg/dL Calcium (8.5-10.1) mg/dL Magnesium (1.8-2.4) mg/dl Total Bilirubin (0.2-1.0) mg/dL AST (15-37) U/L ALT (16-63) U/L Alkaline Phosphatase (46-116) U/L Total Protein (6.4-8.2) g/dl Albumin (3.4-5.0) g/dl Globulin gm/dL Albumin/Globulin Ratio (1-2) Urine Color Yellow (Yellow) Urine Appearance Clear (Clear) Urine pH 6.5 (5.0-8.0) Ur Specific [place] 1.015 (1.005-1.030) Urine Protein 1+ H (Negative) Urine Glucose (UA) Negative (Negative) Urine Ketones Negative (Negative) Urine Occult Blood 2+ H (Negative) Urine Nitrite Negative (Negative) Urine Bilirubin Negative (Negative) Urine Urobilinogen 0.2 (0.2-1.0) Ur Leukocyte Esterase Negative (Negative) Urine RBC 0-5 (0-5) /hpf Urine WBC Not seen (0-5) /hpf Ur Epithelial Cells Not seen (0-5) /hpf Urine Bacteria Not seen (FEW) /hpf Urine Mucus Not seen (FEW) /hpf Urine Opiates Screen Negative (NEGATIVE) Ur Buprenorphine Scrn Negative (NEGATIVE) Ur Oxycodone Screen Negative (NEGATIVE) Urine Methadone Screen Negative (NEGATIVE) Ur Propoxyphene Screen Negative (NEGATIVE) Ur Barbiturates Screen Negative (NEGATIVE) Ur Tricyclics Screen Negative (NEGATIVE) Ur Phencyclidine Scrn Negative (NEGATIVE) Ur Amphetamine Screen Negative (NEGATIVE) U Methamphetamines Scrn Negative (NEGATIVE) U Benzodiazepines Scrn Negative (NEGATIVE) U Cocaine Metab Screen Negative (NEGATIVE) U Marijuana (THC) Screen Negative (NEGATIVE) Ethyl Alcohol Cancelled (0.00) gm% 08/02/17 08/02/17 Range/Units 19:00 19:18 WBC (4.23-9.07) K/mm3 RBC (4.63-6.08) M/mm3 Hgb (13.7-17.5) gm/L Hct (40.1-51.0) % MCV (79.0-92.2) fl MCH (25.7-32.2) pg MCHC (32.2-35.5) g/dl RDW Std Deviation (35.1-43.9) fL Plt Count (163-337) K/mm3 MPV (9.4-12.3) fl Neut % (Auto) (34.0-67.9) % Lymph % (Auto) (21.8-53.1) % Pender % (Auto) (5.3-12.2) % Eos % (Auto) (0.8-7.0) Baso % (Auto) (0.1-1.2) % Neut # (Auto) (1.78-5.38) K/mm3 Lymph # (Auto) (1.32-3.57) K/mm3 Pender # (Auto) (0.30-0.82) K/mm3 Eos # (Auto) (0.04-0.54) K/mm3 Baso # (Auto) (0.01-0.08) K/mm3 PT (8.0-13.0) SECONDS INR APTT (22-36) SECONDS Sodium (136-145) mEq/L Potassium (3.5-5.1) mEq/L Chloride (98-107) mEq/L Carbon Dioxide (21-32) mEq/L Anion Gap (5-15) BUN (7-18) mg/dL Creatinine (0.7-1.3) mg/dL Est Cr Clr Drug Dosing Estimated GFR (MDRD) (>60) mL/min BUN/Creatinine Ratio (14-18) Glucose (74-106) mg/dL Calcium (8.5-10.1) mg/dL Magnesium (1.8-2.4) mg/dl Total Bilirubin (0.2-1.0) mg/dL AST (15-37) U/L ALT (16-63) U/L Alkaline Phosphatase (46-116) U/L Total Protein (6.4-8.2) g/dl Albumin (3.4-5.0) g/dl Globulin gm/dL Albumin/Globulin Ratio (1-2) Urine Color (Yellow) Urine Appearance (Clear) Urine pH (5.0-8.0) Ur Specific [place] (1.005-1.030) Urine Protein (Negative) Urine Glucose (UA) (Negative) Urine Ketones (Negative) Urine Occult Blood (Negative) Urine Nitrite (Negative) Urine Bilirubin (Negative) Urine Urobilinogen (0.2-1.0) Ur Leukocyte Esterase (Negative) Urine RBC (0-5) /hpf Urine WBC (0-5) /hpf Ur Epithelial Cells (0-5) /hpf Urine Bacteria (FEW) /hpf Urine Mucus (FEW) /hpf Urine Opiates Screen (NEGATIVE) Ur Buprenorphine Scrn (NEGATIVE) Ur Oxycodone Screen (NEGATIVE) Urine Methadone Screen (NEGATIVE) Ur Propoxyphene Screen (NEGATIVE) Ur Barbiturates Screen (NEGATIVE) Ur Tricyclics Screen (NEGATIVE) Ur Phencyclidine Scrn (NEGATIVE) Ur Amphetamine Screen (NEGATIVE) U Methamphetamines Scrn (NEGATIVE) U Benzodiazepines Scrn (NEGATIVE) U Cocaine Metab Screen (NEGATIVE) U Marijuana (THC) Screen (NEGATIVE) Ethyl Alcohol 0.27 Cancelled (0.00) gm% Medications Discontinued Medications Generic Name Dose Route Start Last Admin Trade Name Freq PRN Reason Stop Dose Admin Folic Acid 1 mg 03/01/18 16:04 08/02/17 16:27 Folic Acid PO 08/02/17 16:05 1 mg ONETIME ONE Administration Lactated Ringer's 1,000 mls @ 999 mls/hr 08/02/17 16:04 08/02/17 16:26 Ringers, Lactated IV 08/02/17 17:04 999 mls/hr .BOLUS ONE Administration Ondansetron HCl 4 mg 08/02/17 16:05 08/02/17 16:27 Zofran IVPUSH 08/02/17 16:06 4 mg ONETIME ONE Administration Potassium Chloride 20 meq 08/02/17 16:05 08/02/17 16:27 Klor-Con M20 PO 08/02/17 16:06 20 meq ONETIME ONE Administration Sodium Chloride 10 ml 08/02/17 16:04 08/02/17 16:27 Saline Flush FLUSH 10 ml ASDIRECTED PRN Administration Keep Vein Open Re-Assessment/Re-Exam: 20:20 The patient's blood alcohol content from 0.37 to 0.27. I do feel that he can safely be sent to the [facility] crisis bed. I do not feel that he needs to be admitted to the hospital for medical detox today. I will give him some Ativan to help with his anxiety and shakiness. Patient states that the [facility] that is now full. He states he'll go to [facility] in the morning. I do feel this is appropriate. I informed him to home and to not drink any alcohol. Also think about 24 hours for him to become completely sober. I informed him he should not drink as it will not allow them into the [facility] that if he goes home and drinks tonight. Discharge instructions as documented. Departure - Departure Time of Disposition: 20:29 Disposition: Home, Self-Care 01 Condition: Fair Clinical Impression: Alcohol abuse - Discharge Information Prescriptions: LORazepam [Ativan] 1 mg PO Q6H PRN #15 tab PRN Reason: Anxiety Ondansetron [Zofran ODT] 4 mg PO Q6H PRN #12 tab.dis PRN Reason: Nausea Instructions: Alcohol Use Disorder Referrals: PCP,None [Primary Care Provider] - Additional Instructions: Take 1 tab sublingual every 6 hours as needed for nausea. Ativan 1 tab as needed every 6 hours as needed for tremors and anxiety. Do not drink alcohol. Make sure you're drinking plenty of fluids. Go to the [facility] tomorrow for further management and care. Please return to the ER for symptoms change or worsen.
== END 2017-08-02 20:40 | disposition home or self-care (01) ==
LOC: JD.ED 14:19
DX: F10.129 Alcohol abuse with intoxication, unspecified (principal); Z79.899 Other long term (current) drug therapy; Z79.01 Long term (current) use of anticoagulants; Z87.891 Personal history of nicotine dependence; Y90.0 Blood alcohol level of less than 20 mg/100 ml
CPT/HCPCS: 36415; 80053; 80306; 81001; 83735; 85025; 85610; 85730; 96360; 96374; 99285; A9270; G0480; J2405; J7050; J7120; 99284

== ENCOUNTER 2017-09-03 19:58 | Inpatient (IN) | payer MEDICAID ==
--- NOTE | 2017-09-03 20:22 | EDM.PDOC ---
ED HPI GENERAL MEDICAL PROBLEM - General Chief Complaint: Cardiovascular Problem Stated Complaint: PRO TIME READING HIGH Time Seen by Provider: 09/03/17 20:48 Source of Information: Reports: Patient History Limitations: Reports: Intoxication - History of Present Illness INITIAL COMMENTS - FREE TEXT/NARRATIVE: Patient is a 47-year-old male with a history of alcoholism and mechanical aortic heart valve" Coumadin reports the ED intoxicated with instructions from the [facility] to come to the ED for evaluation for high pro time. They called the ED today and reported the patient's INR was greater than 7. Patient reports drinking alcohol approximate 6 shots of fireball every day for the past week. Patient's been taking Coumadin daily at lower dose than normal. He states been taking approximately 2 mg every day. Normally takes 4 mg every day if not drinking. He has not fallen today injuring his head. He has no headache. No vision changes. No focal neurological deficits. He has no chest pain, sob breath , nausea/vomiting, stiff neck, blood in stool, or any additional complaint. He denies recreational drug use. PMH: Alcoholishm, lung cancer, aortic valve replacement, major depression, and anxiety. Reports being on warfarin, Zofran, metoprolol succinate, lorazepam, and Prozac, - Related Data Allergies Allergy/AdvReac Type Severity Reaction Status Date / Time No Known Allergies Allergy Verified 09/03/17 20:17 Home Meds: Home Meds Metoprolol Succinate [Toprol XL] 25 mg PO DAILY #30 tab.er 02/08/17 [Rx] Warfarin [Coumadin] 4 mg PO DAILY #30 tablet 02/08/17 [Rx] FLUoxetine [PROzac] 20 mg PO DAILY #30 cap 04/16/17 [Rx] LORazepam [Ativan] 1 mg PO Q6H PRN #15 tab 08/02/17 [Rx] Ondansetron [Zofran ODT] 4 mg PO Q6H PRN #12 tab.dis 08/02/17 [Rx] Past Medical History Cardiovascular History: Reports: Heart Valve Replacement Other Cardiovascular History: aortic stenosis, valvular heart disease, aortic regurgitation, is on coumadin Other Respiratory History: lung cancer at age 3 Gastrointestinal History: Reports: Colon Polyp Other Gastrointestinal History: globus sensation Genitourinary History: Reports: Dialysis Other Genitourinary History: 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 Kidney was removed. Social & Family History - Family History Family Medical History: Noncontributory - Tobacco Use Smoking Status *Q: Never Smoker Years of Tobacco use: 30 Packs/Tins Daily: 0.2 Used Tobacco, but Quit: Yes Month/Year Tobacco Last Used: 06/2006 Second Hand Smoke Exposure: No - Caffeine Use Caffeine Use: Reports: Coffee - Alcohol Use Days Per Week of Alcohol Use: 7 Number of Drinks Per Day: 20 Total Drinks Per Week: 140 - Recreational Drug Use Recreational Drug Use: No Drug Use in Last 12 Months: No Recreational Drug Type: Reports: Methamphetamine Recreational Drug Use Frequency: Not Used In Over 6 Months Recreational Drug Last Use: 2009 ED ROS GENERAL - Review of Systems Review Of Systems: ROS reveals no pertinent complaints other than HPI. ED EXAM, GENERAL - Physical Exam Exam: See Below Exam Limited By: Intoxication General Appearance: Alert, WD/WN, No Apparent Distress Eye Exam: Bilateral Eye: EOMI, Nystagmus (Horizontal nystagmus present), PERRL Ears: Hearing Grossly Normal Nose: Normal Inspection Throat/Mouth: Normal Inspection, Normal Oropharynx, Normal Voice, No Airway Compromise Head: Atraumatic, Normocephalic Neck: Normal Inspection, Supple, Non-Tender, Full Range of Motion Respiratory/Chest: No Respiratory Distress, Lungs Clear, Normal Breath Sounds, No Accessory Muscle Use, Chest Non-Tender Cardiovascular: Normal Peripheral Pulses, Regular Rate, Rhythm, Systolic Murmur (Systolic click) Peripheral Pulses: 4+: Radial (L), Radial (R) GI/Abdominal: Normal Bowel Sounds, Soft, Non-Tender, No Organomegaly, No Distention Back Exam: Normal Inspection Extremities: Normal Inspection, Normal Range of Motion, Non-Tender Neurological: Alert, Oriented, CN II-XII Intact, Normal Cognition, No Motor/ Sensory Deficits Psychiatric: Normal Affect, Normal Mood Skin Exam: Warm, Dry, Intact, Normal Color, No Rash Course - Vital Signs Last Recorded V/S: Last Vital Signs Temp 97.5 F 09/03/17 20:17 Pulse 106 H 09/03/17 20:17 Resp 18 09/03/17 20:17 BP 146/90 H 09/03/17 20:17 Pulse Ox 96 09/03/17 20:17 - Orders/Labs/Meds Orders: Active Orders 24 hr Category Date Time Status Ambulate [RC] ASDIRECTED Care 09/03/17 22:29 Active CIWAA Assessment [RC] ASDIRECTED Care 09/03/17 21:27 Active CIWAA Assessment [RC] Q15M Care 09/03/17 22:39 Active CIWAA Assessment [RC] Q1H Care 09/03/17 22:39 Active CIWAA Assessment [RC] Q30M Care 09/03/17 22:39 Active CIWAA Assessment [RC] Q4H Care 09/03/17 22:39 Active Cardiac Monitoring [RC] CONTINUOUS Care 09/03/17 22:30 Active EKG 12 Lead [EKG Documentation Completion] [RC] STAT Care 09/03/17 21:03 Active Height and Weight [RC] DAILY Care 09/03/17 22:29 Active Intake and Output [RC] QSHIFT Care 09/03/17 22:30 Active Notify Provider Consults [RC] ASDIRECTED Care 09/03/17 22:34 Active Notify Provider [RC] PRN Care 09/03/17 22:39 Active Oxygen Therapy [RC] PRN Care 09/03/17 22:29 Active Peripheral IV Care [RC] . DIRECTED Care 09/03/17 20:53 Active RT Aerosol Therapy [RC] ASDIRECTED Care 09/03/17 22:33 Active Up ad Felipa [RC] ASDIRECTED Care 09/03/17 22:29 Active VTE/DVT Education [RC] PER UNIT ROUTINE Care 09/03/17 22:29 Active Vital Signs [RC] Q4H Care 09/03/17 22:29 Active Consult for Substance Abuse [CONS] Routine Cons 09/03/17 22:37 Active Consult to Case Management [CONS] Routine Cons 09/03/17 22:33 Active Consult to Physician [CONS] Routine Cons 09/03/17 22:33 Active Consult to Interior Wirer [CONS] Routine Cons 09/03/17 22:33 Active Regular Diet [DIET] Diet 09/03/17 Dinner Active Head wo Cont [CT] Stat Exams 09/03/17 21:01 Taken BASIC METABOLIC PANEL,BMP [CHEM] AM Lab 09/04/17 05:11 Ordered BASIC METABOLIC PANEL,BMP [CHEM] AM Lab 09/05/17 05:11 Ordered BASIC METABOLIC PANEL,BMP [CHEM] AM Lab 09/06/17 05:11 Ordered BASIC METABOLIC PANEL,BMP [CHEM] AM Lab 09/07/17 05:11 Ordered BASIC METABOLIC PANEL,BMP [CHEM] AM Lab 09/08/17 05:11 Ordered CBC WITH AUTO DIFF [HEME] AM Lab 09/04/17 05:11 Ordered DRUG SCREEN, URINE [URCHEM] Stat Lab 09/03/17 20:52 Ordered INR,PT,PROTHROMBIN TIME [COAG] AM Lab 09/04/17 05:11 Ordered INR,PT,PROTHROMBIN TIME [COAG] AM Lab 09/05/17 05:11 Ordered INR,PT,PROTHROMBIN TIME [COAG] AM Lab 09/06/17 05:11 Ordered INR,PT,PROTHROMBIN TIME [COAG] AM Lab 09/07/17 05:11 Ordered INR,PT,PROTHROMBIN TIME [COAG] AM Lab 09/08/17 05:11 Ordered MAGNESIUM [CHEM] AM Lab 09/04/17 05:11 Ordered MAGNESIUM [CHEM] AM Lab 09/05/17 05:11 Ordered MAGNESIUM [CHEM] AM Lab 09/06/17 05:11 Ordered MAGNESIUM [CHEM] AM Lab 09/07/17 05:11 Ordered MAGNESIUM [CHEM] AM Lab 09/08/17 05:11 Ordered TSH [CHEM] Stat Lab 09/03/17 21:10 Ordered TYPE AND SCREEN [BBK] Stat Lab 09/03/17 21:10 Received UA W/MICROSCOPIC [URIN] Stat Lab 09/03/17 20:52 Ordered Acetaminophen [Tylenol] Med 09/03/17 22:29 Active 650 mg PO Q4H PRN Albuterol/Ipratropium [DuoNeb 3.0-0.5 MG/3 ML] Med 09/03/17 22:29 Active 3 ml NEB Q4H PRN Bisacodyl [Dulcolax] Med 09/03/17 22:29 Active 5 mg PO DAILY PRN Docusate Sodium [Colace] Med 09/03/17 22:29 Active 100 mg PO BID PRN Docusate Sodium/Sennosides [Senna Plus] Med 09/03/17 22:29 Active 1 tab PO BID PRN Famotidine [Pepcid] Med 09/04/17 09:00 Active 20 mg PO Q12H Folic Acid Med 09/04/17 09:00 Active 1 mg PO DAILY Folic Acid Med 09/03/17 22:39 Once 1 mg SUBCUT ONETIME ONE HYDROmorphone [Dilaudid] Med 09/03/17 22:29 Active 0.25 mg IVPUSH Q2H PRN LORazepam [Ativan] Med 09/03/17 22:35 Active 2 mg IVPUSH Q4H PRN LORazepam [Ativan] Med 09/03/17 22:35 Active See Protocol IVPUSH Q4H PRN Magnesium Rep Pharmacy to Dose [Pharmacy to Dose - Med 09/03/17 22:45 Ordered Magnesium Replacement] 1 dose .XX ASDIRECTED Metoprolol Tartrate [Lopressor] Med 09/03/17 22:35 Active 5 mg IVPUSH Q4H PRN Multivitamins,Therapeutic [Thera] Med 09/04/17 09:00 Ordered 1 each PO DAILY Ondansetron [Zofran] Med 09/03/17 22:29 Active 4 mg IV Q6H PRN Polyethylene Glycol 3350 [MiraLAX] Med 09/03/17 22:29 Ordered 17 gm PO DAILY PRN Potassium Rep Pharmacy to Dose [Pharmacy to Dose - Med 09/03/17 22:45 Ordered Potassium Replacement] 1 dose .XX ASDIRECTED Promethazine [Phenergan] 12.5 mg Med 09/03/17 22:29 Active Sodium Chloride 0.9% [Normal Saline] 50 ml IV Q6H QUEtiapine [SEROquel] Med 09/04/17 21:00 Ordered 50 mg PO BEDTIME QUEtiapine [SEROquel] Med 09/03/17 22:43 Once 50 mg PO ONETIME ONE Sodium Chloride 0.9% [Normal Saline] 1,000 ml Med 09/03/17 22:30 Active IV ASDIRECTED Sodium Chloride 0.9% [Normal Saline] 1,000 ml Med 09/03/17 22:40 Active IV ONETIME Sodium Chloride 0.9% [Saline Flush] Med 09/03/17 20:53 Active 10 ml FLUSH ASDIRECTED PRN Thiamine [Vitamin B-1] Med 09/04/17 09:00 Ordered 100 mg PO DAILY Thiamine [Vitamin B-1] 200 mg Med 09/03/17 22:39 Ordered Sodium Chloride 0.9% [Normal Saline] 50 ml IV ONETIME Topiramate [Topamax] Med 09/04/17 09:00 Ordered 25 mg PO BID Topiramate [Topamax] Med 09/03/17 22:44 Stat 25 mg PO NOW STA chlordiazePOXIDE [Librium] Med 09/03/17 22:39 Active 25 mg PO Q8H PRN cloNIDine [Catapres] Med 09/03/17 22:39 Active 0.1 mg PO Q4H PRN hydrALAZINE [Apresoline] Med 09/03/17 22:35 Active 20 mg IVPUSH Q4H PRN oxyCODONE Med 09/03/17 22:29 Ordered 5 mg PO Q4H PRN Peripheral IV Insertion Adult [OM.PC] Routine Oth 09/03/17 20:53 Ordered Seizure Precautions [OM.PC] Routine Oth 09/03/17 22:39 Ordered Transfuse Fresh Frozen Plasma [COMM] Stat Oth 09/03/17 21:45 Ordered Resuscitation Status Routine Resus Stat 09/03/17 22:29 Ordered Medication Orders Acetaminophen (Tylenol) 650 mg PO Q4H PRN PRN Reason: Pain (Mild 1-3)/fever Albuterol/Ipratropium (Duoneb 3.0-0.5 Mg/3 Ml) 3 ml NEB Q4H PRN PRN Reason: Shortness Of Breath/wheezing Bisacodyl (Dulcolax) 5 mg PO DAILY PRN PRN Reason: Constipation Chlordiazepoxide HCl (Librium) 25 mg PO Q8H PRN PRN Reason: Withdrawal Symptoms Clonidine HCl (Catapres) 0.1 mg PO Q4H PRN PRN Reason: Agitation Docusate Sodium (Colace) 100 mg PO BID PRN PRN Reason: Constipation Famotidine (Pepcid) 20 mg PO Q12H SHERLY Folic Acid (Folic Acid) 1 mg PO DAILY SHERLY Stop: 04/05/18 09:01 Folic Acid (Folic Acid) 1 mg SUBCUT ONETIME ONE Stop: 09/03/17 22:40 Hydralazine HCl (Apresoline) 20 mg IVPUSH Q4H PRN PRN Reason: Hypertension Hydromorphone HCl (Dilaudid) 0.25 mg IVPUSH Q2H PRN PRN Reason: Pain (severe 7-10) Promethazine HCl 12.5 mg/ (Sodium Chloride) 50.5 mls @ 100 mls/hr IV Q6H PRN PRN Reason: Nausea/Vomiting Sodium Chloride (Normal Saline) 1,000 mls @ 75 mls/hr IV ASDIRECTED SHERLY Sodium Chloride (Normal Saline) 1,000 mls @ 250 mls/hr IV ONETIME ONE Stop: 09/04/17 02:39 Thiamine HCl 200 mg/ Sodium (Chloride) 52 mls @ 100 mls/hr IV ONETIME ONE Stop: 09/03/17 23:09 Lorazepam (Ativan) 2 mg IVPUSH Q4H PRN PRN Reason: Seizures Lorazepam (Ativan) 0 mg IVPUSH Q4H PRN; Protocol PRN Reason: Withdrawal Symptoms Magnesium Sulfate (Pharmacy To Dose - Magnesium Replacement) 1 dose .XX ASDIRECTED [facility] Metoprolol Tartrate (Lopressor) 5 mg IVPUSH Q4H PRN PRN Reason: Tachycardia Multivitamins (Thera) 1 each PO DAILY [facility] Ondansetron HCl (Zofran) 4 mg IV Q6H PRN PRN Reason: Nausea/Vomiting Oxycodone HCl (Oxycodone) 5 mg PO Q4H PRN PRN Reason: Pain (moderate 4-6) Polyethylene Glycol (Miralax) 17 gm PO DAILY PRN PRN Reason: Constipation Potassium Chloride (Pharmacy To Dose - Potassium Replacement) 1 dose .XX ASDIRECTED [facility] Quetiapine Fumarate (Seroquel) 50 mg PO ONETIME ONE Stop: 09/03/17 22:44 Quetiapine Fumarate (Seroquel) 50 mg PO BEDTIME [facility] Senna/Docusate Sodium (Senna Plus) 1 tab PO BID PRN PRN Reason: Constipation Sodium Chloride (Saline Flush) 10 ml FLUSH ASDIRECTED PRN PRN Reason: Keep Vein Open Last Admin: 09/03/17 21:24 Dose: 10 ml Thiamine HCl (Vitamin B-1) 100 mg PO DAILY SHERLY Topiramate (Topamax) 25 mg PO NOW STA Stop: 09/03/17 22:45 Topiramate (Topamax) 25 mg PO BID SHERLY Labs: Laboratory Tests 09/03/17 09/03/17 09/03/17 Range/Units 21:10 21:10 21:10 WBC 7.73 (4.23-9.07) K/mm3 RBC 5.58 (4.63-6.08) M/mm3 Hgb 17.0 (13.7-17.5) gm/L Hct 49.8 (40.1-51.0) % MCV 89.2 (79.0-92.2) fl MCH 30.5 (25.7-32.2) pg MCHC 34.1 (32.2-35.5) g/dl RDW Std Deviation 45.1 H (35.1-43.9) fL Plt Count 278 (163-337) K/mm3 MPV 10.4 (9.4-12.3) fl Neutrophils % (Manual) 46 (40-60) % Band Neutrophils % 0 (0-10) % Lymphocytes % (Manual) 46 H (20-40) % Atypical Lymphs % 0 % Monocytes % (Manual) 8 (2-10) % Eosinophils % (Manual) 0 L (0.8-7.0) % Basophils % (Manual) 0 L (0.2-1.2) Platelet Estimate Adequate Plt Morphology Comment Normal RBC Morph Comment Normal PT 119.2 H* (8.0-13.0) SECONDS INR 10.87 H* APTT 48 H (22-36) SECONDS Sodium 145 (136-145) mEq/L Potassium 4.3 (3.5-5.1) mEq/L Chloride 101 (98-107) mEq/L Carbon Dioxide 34 H (21-32) mEq/L Anion Gap 14.3 (5-15) BUN 24 H (7-18) mg/dL Creatinine 1.3 (0.7-1.3) mg/dL Est Cr Clr Drug Dosing 64.65 mL/min Estimated GFR (MDRD) 59 (>60) mL/min BUN/Creatinine Ratio 18.5 H (14-18) Glucose 117 H (74-106) mg/dL Calcium 9.0 (8.5-10.1) mg/dL Total Bilirubin 0.7 (0.2-1.0) mg/dL AST 69 H (15-37) U/L ALT 24 (16-63) U/L Alkaline Phosphatase 88 (46-116) U/L Total Protein 9.1 H (6.4-8.2) g/dl Albumin 4.4 (3.4-5.0) g/dl Globulin 4.7 gm/dL Albumin/Globulin Ratio 0.9 L (1-2) Lipase 184 (73-393) U/L TSH 3rd Generation (0.358-3.74) uIU/mL Ethyl Alcohol 0.34 (0.00) gm% Blood Type Gel Antibody Screen 09/03/17 09/03/17 Range/Units 21:10 21:10 WBC (4.23-9.07) K/mm3 RBC (4.63-6.08) M/mm3 Hgb (13.7-17.5) gm/L Hct (40.1-51.0) % MCV (79.0-92.2) fl MCH (25.7-32.2) pg MCHC (32.2-35.5) g/dl RDW Std Deviation (35.1-43.9) fL Plt Count (163-337) K/mm3 MPV (9.4-12.3) fl Neutrophils % (Manual) (40-60) % Band Neutrophils % (0-10) % Lymphocytes % (Manual) (20-40) % Atypical Lymphs % % Monocytes % (Manual) (2-10) % Eosinophils % (Manual) (0.8-7.0) % Basophils % (Manual) (0.2-1.2) Platelet Estimate Plt Morphology Comment RBC Morph Comment PT (8.0-13.0) SECONDS INR APTT (22-36) SECONDS Sodium (136-145) mEq/L Potassium (3.5-5.1) mEq/L Chloride (98-107) mEq/L Carbon Dioxide (21-32) mEq/L Anion Gap (5-15) BUN (7-18) mg/dL Creatinine (0.7-1.3) mg/dL Est Cr Clr Drug Dosing mL/min Estimated GFR (MDRD) (>60) mL/min BUN/Creatinine Ratio (14-18) Glucose (74-106) mg/dL Calcium (8.5-10.1) mg/dL Total Bilirubin (0.2-1.0) mg/dL AST (15-37) U/L ALT (16-63) U/L Alkaline Phosphatase (46-116) U/L Total Protein (6.4-8.2) g/dl Albumin (3.4-5.0) g/dl Globulin gm/dL Albumin/Globulin Ratio (1-2) Lipase (73-393) U/L TSH 3rd Generation 1.334 (0.358-3.74) uIU/mL Ethyl Alcohol (0.00) gm% Blood Type O POSITIVE Gel Antibody Screen Negative Meds: Medications Generic Name Dose Route Start Last Admin Trade Name Freq PRN Reason Stop Dose Admin Acetaminophen 650 mg 09/03/17 22:29 Tylenol PO Q4H PRN Pain (Mild 1-3)/fever Albuterol/Ipratropium 3 ml 09/03/17 22:29 Duoneb 3.0-0.5 Mg/3 Ml NEB Q4H PRN Shortness Of Breath/wheezing Bisacodyl 5 mg 09/03/17 22:29 Dulcolax PO DAILY PRN Constipation Chlordiazepoxide HCl 25 mg 09/03/17 22:39 Librium PO Q8H PRN Withdrawal Symptoms Clonidine HCl 0.1 mg 09/03/17 22:39 Catapres PO Q4H PRN Agitation Docusate Sodium 100 mg 09/03/17 22:29 Colace PO BID PRN Constipation Famotidine 20 mg 09/04/17 09:00 Pepcid PO Q12H SHERLY Folic Acid 1 mg 09/04/17 09:00 Folic Acid PO 09/06/17 09:01 DAILY SHERLY Folic Acid 1 mg 09/03/17 22:39 Folic Acid SUBCUT 09/03/17 22:40 ONETIME ONE Hydralazine HCl 20 mg 09/03/17 22:35 Apresoline IVPUSH Q4H PRN Hypertension Hydromorphone HCl 0.25 mg 09/03/17 22:29 Dilaudid IVPUSH Q2H PRN Pain (severe 7-10) Promethazine HCl 12.5 mg/ 50.5 mls @ 100 mls/hr 09/03/17 22:29 Sodium Chloride IV Q6H PRN Nausea/Vomiting Sodium Chloride 1,000 mls @ 75 mls/hr 09/03/17 22:30 Normal Saline IV ASDIRECTED SHERLY Sodium Chloride 1,000 mls @ 250 mls/hr 09/03/17 22:40 Normal Saline IV 09/04/17 02:39 ONETIME ONE Thiamine HCl 200 mg/ Sodium 52 mls @ 100 mls/hr 09/03/17 22:39 Chloride IV 09/03/17 23:09 ONETIME ONE Lorazepam 2 mg 09/03/17 22:35 Ativan IVPUSH Q4H PRN Seizures Lorazepam 0 mg 09/03/17 22:35 Ativan IVPUSH Q4H PRN Withdrawal Symptoms Protocol Magnesium Sulfate 1 dose 09/03/17 22:45 Pharmacy To Dose - Magnesium Replacement .XX ASDIRECTED [facility] Metoprolol Tartrate 5 mg 09/03/17 22:35 Lopressor IVPUSH Q4H PRN Tachycardia Multivitamins 1 each 09/04/17 09:00 Thera PO DAILY [facility] Ondansetron HCl 4 mg 09/03/17 22:29 Zofran IV Q6H PRN Nausea/Vomiting Oxycodone HCl 5 mg 09/03/17 22:29 Oxycodone PO Q4H PRN Pain (moderate 4-6) Polyethylene Glycol 17 gm 09/03/17 22:29 Miralax PO DAILY PRN Constipation Potassium Chloride 1 dose 09/03/17 22:45 Pharmacy To Dose - Potassium Replacement .XX ASDIRECTED [facility] Quetiapine Fumarate 50 mg 09/03/17 22:43 Seroquel PO 09/03/17 22:44 ONETIME ONE Quetiapine Fumarate 50 mg 09/04/17 21:00 Seroquel PO BEDTIME [facility]ER[facility] Senna/Docusate Sodium 1 tab 09/03/17 22:29 Senna Plus PO BID PRN Constipation Sodium Chloride 10 ml 09/03/17 20:53 09/03/17 21:24 Saline Flush FLUSH 10 ml ASDIRECTED PRN Administration Keep Vein Open Thiamine HCl 100 mg 09/04/17 09:00 Vitamin B-1 PO DAILY [facility]ER[facility] Topiramate 25 mg 09/03/17 22:44 Topamax PO 09/03/17 22:45 NOW STA Topiramate 25 mg 09/04/17 09:00 Topamax PO BID SHERLY Discontinued Medications Generic Name Dose Route Start Last Admin Trade Name Linda PRN Reason Stop Dose Admin Sodium Chloride 1,000 mls @ 999 mls/hr 09/03/17 20:53 09/03/17 21:24 Normal Saline IV 09/03/17 21:53 999 mls/hr ONETIME ONE Administration Lorazepam 2 mg 09/03/17 21:28 09/03/17 21:37 Ativan IVPUSH 09/03/17 21:29 Not Given ONETIME ONE Lorazepam 1 mg 09/03/17 21:28 09/03/17 21:35 Ativan IVPUSH 09/03/17 21:29 1 mg ONETIME ONE Administration Pantoprazole Sodium 40 mg 09/03/17 22:29 Protonix Iv IVPUSH 09/03/17 22:30 ONETIME ONE Phytonadione 5 mg 09/03/17 21:56 09/03/17 22:16 Aquamephyton PO 09/03/17 21:57 5 mg ONETIME ONE Administration - Re-Assessments/Exams Free Text/Narrative Re-Assessment/Exam: IV established with normal saline 999 mls per hour. Initial labs and studies include CBC, chem 14, urine drug tox, lipase, TSH, EKG , coag studies, UA, serum EtOH, and head CT. 09/03/17 21:28 Patient is tremulous. Ordered a C1 assessment. In addition will start with 1 mg Ativan IV. EKG sinus tachycardia rate of 100. No acute ST changes noted. Labs reviewed: CBC essentially normal. Sodium 145, potassium 4.3, AG 14.3, creatinine 1.3, glucose 117, lipase 184, TSH 1.334, serum EtOH 0.34, INR 10.87. Initially orderd FFP 2 units with type and screen per 's recommendations. [address] Esqueda data collection associate hospitalists. He has accepted the patient. Request ICU. States he would hold FFP if no active bleeding and would start Vit K 5mg per up to date guidelines. Patient has no active bleeding at this point. Request CT of the head to be completed prior to admission. I have called the lab and cancelled the FFP. Ordered Vitamin K 5mg PO. MCG being completed. CT of the head is pending. 09/03/17 22:47 Ct of the head: Normal head/brain CT. Patient will be moved to the ICU. Departure - Departure Time of Disposition: 21:48 Disposition: Admitted As Inpatient 65 Condition: Good Clinical Impression: Elevated international normalized ratio (INR), Alcoholic Referrals: Melvin Petty MD [Primary Care Provider] - Forms: ED Department Discharge - My Orders Last 24 Hours: My Active Orders 09/03/17 20:52 DRUG SCREEN, URINE [URCHEM] Stat UA W/MICROSCOPIC [URIN] Stat 09/03/17 20:53 Peripheral IV Care [RC] . DIRECTED Sodium Chloride 0.9% [Saline Flush] 10 ml FLUSH ASDIRECTED PRN Peripheral IV Insertion Adult [OM.PC] Routine 09/03/17 21:01 Head wo Cont [CT] Stat 09/03/17 21:03 EKG 12 Lead [EKG Documentation Completion] [RC] STAT 09/03/17 21:10 TSH [CHEM] Stat TYPE AND SCREEN [BBK] Stat 09/03/17 21:27 CIWAA Assessment [RC] ASDIRECTED 09/03/17 21:45 Transfuse Fresh Frozen Plasma [COMM] Stat 09/03/17 22:40 Sodium Chloride 0.9% [Normal Saline] 1,000 ml IV ONETIME - Assessment/Plan Last 24 Hours: My Active Orders 09/03/17 20:52 DRUG SCREEN, URINE [URCHEM] Stat UA W/MICROSCOPIC [URIN] Stat 09/03/17 20:53 Peripheral IV Care [RC] . DIRECTED Sodium Chloride 0.9% [Saline Flush] 10 ml FLUSH ASDIRECTED PRN Peripheral IV Insertion Adult [OM.PC] Routine 09/03/17 21:01 Head wo Cont [CT] Stat 09/03/17 21:03 EKG 12 Lead [EKG Documentation Completion] [RC] STAT 09/03/17 21:10 TSH [CHEM] Stat TYPE AND SCREEN [BBK] Stat 09/03/17 21:27 CIWAA Assessment [RC] ASDIRECTED 09/03/17 21:45 Transfuse Fresh Frozen Plasma [COMM] Stat 09/03/17 22:40 Sodium Chloride 0.9% [Normal Saline] 1,000 ml IV ONETIME
[2017-09-03] MEDS ORDERED: Sodium Chloride 0.9% 10 ML Syringe FLUSH PRN (20:53)
[2017-09-03] MEDS ORDERED: Sodium Chloride 0.9% 1,000 ML IV ONE ×2 (20:53→22:40)
[2017-09-03] MEDS ORDERED: LORazepam 2 MG/ML SDV IVPUSH ONE ×2 (21:28)
[2017-09-03] MEDS ORDERED: Phytonadione ORAL 2.5mg/2.5ml Soln Simple Syrup U/D PO ONE (21:56)
[2017-09-03] MEDS ORDERED: HYDROmorphone 0.5 MG/0.5 ML SYRINGE IVPUSH PRN (22:29)
[2017-09-03] MEDS ORDERED: Polyethylene Glycol 3350 Powder 17 GM Packet PO PRN (22:29)
[2017-09-03] MEDS ORDERED: oxyCODONE 5 MG Tab PO PRN (22:29)
[2017-09-03] MEDS ORDERED: Ondansetron 4 MG/2 ML SDV IV PRN (22:29)
[2017-09-03] MEDS ORDERED: Pantoprazole 40 MG Vial IVPUSH ONE (22:29)
[2017-09-03] MEDS ORDERED: Albuterol/Ipratropium 3.0-0.5 MG/3 ML Neb Soln NEB PRN (22:29)
[2017-09-03] MEDS ORDERED: Bisacodyl 5 MG Tab PO PRN (22:29)
[2017-09-03] MEDS ORDERED: Docusate Sodium 100 MG Cap PO PRN (22:29)
[2017-09-03] MEDS ORDERED: Acetaminophen 325 MG Tab PO PRN (22:29)
[2017-09-03] MEDS ORDERED: Promethazine 12.5 MG in Sodium Chloride 0.9% 50 ML IV PRN (22:29)
[2017-09-03] MEDS ORDERED: Metoprolol Tartrate 5 MG/5 ML SDV IVPUSH PRN (22:35)
[2017-09-03] MEDS ORDERED: hydrALAZINE 20 MG/ML SDV IVPUSH PRN (22:35)
[2017-09-03] MEDS ORDERED: LORazepam 2 MG/ML SDV IVPUSH PRN ×2 (22:35)
[2017-09-03] MEDS ORDERED: chlordiazePOXIDE 25 MG Cap PO PRN (22:39)
[2017-09-03] MEDS ORDERED: Folic Acid 50 MG/10 ML MDV SUBCUT ONE (22:39)
[2017-09-03] MEDS ORDERED: cloNIDine 0.1 MG Tab PO PRN (22:39)
[2017-09-03] MEDS ORDERED: QUEtiapine 25 MG Tab PO ONE (22:43)
[2017-09-03] MEDS ORDERED: Topiramate 25 MG Tab PO STA (22:44)
--- NOTE | 2017-09-03 23:17 | PCM.HP ---
H&P History of Present Illness - General Date of Service: 09/03/17 Admit Problem/Dx: Admission Diagnosis/Problem Admission Diagnosis/Problem Elevated INR (international normalized ratio) Source of Information: Patient, Old Records, Provider, RN Notes Reviewed History Limitations: Reports: Intoxication - History of Present Illness Initial Comments - Free Text/Narative: This is a 47 yo white male with past medical hx/o chronic etoh abuse, substance abuse, wilm's tumors, and warfarin therapy due to mechanical/prosthetic heart valve who comes in for evaluation of abnormal INR level. He reports no active bleeding, no recent surgery or GI bleed. He denies any recent trauma or falls. On presentation to ED he was found intoxicated with a KALEE level of 0.34. His repeat INR shows 10.89. His head CT scan revealed no acute bleed. Patient was admitted for medical management of acute intoxication and warfarin toxicity. He is full code. - Related Data Allergies/Adverse Reactions: Allergies Allergy/AdvReac Type Severity Reaction Status Date / Time No Known Allergies Allergy Verified 09/04/17 00:29 Home Medications: Home Meds Metoprolol Succinate [Toprol XL] 25 mg PO DAILY #30 tab.er 02/08/17 [Rx] Warfarin [Coumadin] 4 mg PO DAILY #30 tablet 02/08/17 [Rx] Past Medical History Cardiovascular History: Reports: Heart Valve Replacement Other Cardiovascular History: aortic stenosis, valvular heart disease, aortic regurgitation, is on coumadin Other Respiratory History: lung cancer at age 3 Gastrointestinal History: Reports: Colon Polyp Other Gastrointestinal History: globus sensation Genitourinary History: Reports: Dialysis Other Genitourinary History: 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 Kidney was removed. Social & Family History - Family History Family Medical History: Noncontributory - Tobacco Use Smoking Status *Q: Never Smoker Years of Tobacco use: 30 Packs/Tins Daily: 0.2 Used Tobacco, but Quit: Yes Month/Year Tobacco Last Used: 06/2006 Second Hand Smoke Exposure: No - Caffeine Use Caffeine Use: Reports: Coffee - Alcohol Use Days Per Week of Alcohol Use: 7 Number of Drinks Per Day: 20 Total Drinks Per Week: 140 - Recreational Drug Use Recreational Drug Use: No Drug Use in Last 12 Months: No Recreational Drug Type: Reports: Methamphetamine Other Recreational Drug Type: over 10 years Recreational Drug Use Frequency: Not Used In Over 6 Months Recreational Drug Last Use: 2009 H&P Review of Systems - Review of Systems: Review Of Systems: See Below General: Reports: Weakness, Fatigue. Denies: Fever, Chills, Malaise HEENT: Reports: No Symptoms Pulmonary: Denies: Shortness of Breath Cardiovascular: Denies: Chest Pain, Palpitations, Dyspnea on Exertion Gastrointestinal: Denies: Abdominal Pain, Decreased Appetite, Nausea, Vomiting Genitourinary: Reports: No Symptoms Musculoskeletal: Reports: No Symptoms Skin: Denies: Cyanosis, Mottled, Pallor, Diaphoresis Psychiatric: Denies: Confusion, Depression, Hallucinations, Suicidal Ideation, Hallucinations (Auditory) Neurological: Reports: Confusion, Difficulty Walking, Gait Disturbance Hematologic/Lymphatic: Reports: No Symptoms Immunologic: Reports: No Symptoms Exam - Exam Exam: See Below - Vital Signs Vital Signs: Last Vital Signs Temp 36.4 C 09/03/17 20:17 Pulse 106 H 09/03/17 20:17 Resp 18 09/03/17 20:17 BP 146/90 H 09/03/17 20:17 Pulse Ox 96 09/03/17 20:17 Weight: 65.771 kg - Exam General: Alert, Cooperative, Mild Distress HEENT: Conjunctiva Clear, EOMI, Hearing Intact, Mucosa Moist & [place], Nares Patent, Normal Nasal Septum, Posterior Pharynx Clear, Pupils Equal, Pupils Reactive Neck: Supple, Trachea Midline, +2 Carotid Pulse wo Bruit, Full Range of Motion Lungs: Clear to Auscultation, Normal Respiratory Effort Cardiovascular: Regular Rate, Regular Rhythm, Systolic Murmur GI/Abdominal Exam: Normal Bowel Sounds, Soft, Non-Tender, No Organomegaly, No Distention, No Abnormal Bruit (Male) Exam: Deferred Rectal (Males) Exam: Deferred Back Exam: Normal Inspection, Decreased Range of Motion Extremities: Normal Inspection, Normal Range of Motion, Non-Tender, No Pedal Edema, Normal Capillary Refill Peripheral Pulses: 3+: Posterior Tibial (L), Posterior Tibial (R), Dorsalis Pedis (L), Dorsalis Pedis (R) Skin: Warm, Dry, Intact Neuro Extensive - Mental Status: Oriented x3, Normal Cognition, Memory Intact Neuro Extensive - Motor, Sensory, Reflexes: CN II-XII Intact, Abnormal Gait, Tremor Psychiatric: Alert, Normal Affect, Anxious, Withdrawal Symptoms. No: Agitated, Suicidal Ideation, Hallucinations - Patient Data Lab Results Last 24 hrs: Laboratory Results - last 24 hr 09/03/17 09/03/17 09/03/17 Range/Units 21:10 21:10 21:10 WBC 7.73 (4.23-9.07) K/mm3 RBC 5.58 (4.63-6.08) M/mm3 Hgb 17.0 (13.7-17.5) gm/L Hct 49.8 (40.1-51.0) % MCV 89.2 (79.0-92.2) fl MCH 30.5 (25.7-32.2) pg MCHC 34.1 (32.2-35.5) g/dl RDW Std Deviation 45.1 H (35.1-43.9) fL Plt Count 278 (163-337) K/mm3 MPV 10.4 (9.4-12.3) fl Neutrophils % (Manual) 46 (40-60) % Band Neutrophils % 0 (0-10) % Lymphocytes % (Manual) 46 H (20-40) % Atypical Lymphs % 0 % Monocytes % (Manual) 8 (2-10) % Eosinophils % (Manual) 0 L (0.8-7.0) % Basophils % (Manual) 0 L (0.2-1.2) Platelet Estimate Adequate Plt Morphology Comment Normal RBC Morph Comment Normal PT 119.2 H* (8.0-13.0) SECONDS INR 10.87 H* APTT 48 H (22-36) SECONDS Sodium 145 (136-145) mEq/L Potassium 4.3 (3.5-5.1) mEq/L Chloride 101 (98-107) mEq/L Carbon Dioxide 34 H (21-32) mEq/L Anion Gap 14.3 (5-15) BUN 24 H (7-18) mg/dL Creatinine 1.3 (0.7-1.3) mg/dL Est Cr Clr Drug Dosing 64.65 mL/min Estimated GFR (MDRD) 59 (>60) mL/min BUN/Creatinine Ratio 18.5 H (14-18) Glucose 117 H (74-106) mg/dL Calcium 9.0 (8.5-10.1) mg/dL Total Bilirubin 0.7 (0.2-1.0) mg/dL AST 69 H (15-37) U/L ALT 24 (16-63) U/L Alkaline Phosphatase 88 (46-116) U/L Total Protein 9.1 H (6.4-8.2) g/dl Albumin 4.4 (3.4-5.0) g/dl Globulin 4.7 gm/dL Albumin/Globulin Ratio 0.9 L (1-2) Lipase 184 (73-393) U/L TSH 3rd Generation (0.358-3.74) uIU/mL Ethyl Alcohol 0.34 (0.00) gm% Blood Type Gel Antibody Screen 09/03/17 09/03/17 Range/Units 21:10 21:10 WBC (4.23-9.07) K/mm3 RBC (4.63-6.08) M/mm3 Hgb (13.7-17.5) gm/L Hct (40.1-51.0) % MCV (79.0-92.2) fl MCH (25.7-32.2) pg MCHC (32.2-35.5) g/dl RDW Std Deviation (35.1-43.9) fL Plt Count (163-337) K/mm3 MPV (9.4-12.3) fl Neutrophils % (Manual) (40-60) % Band Neutrophils % (0-10) % Lymphocytes % (Manual) (20-40) % Atypical Lymphs % % Monocytes % (Manual) (2-10) % Eosinophils % (Manual) (0.8-7.0) % Basophils % (Manual) (0.2-1.2) Platelet Estimate Plt Morphology Comment RBC Morph Comment PT (8.0-13.0) SECONDS INR APTT (22-36) SECONDS Sodium (136-145) mEq/L Potassium (3.5-5.1) mEq/L Chloride (98-107) mEq/L Carbon Dioxide (21-32) mEq/L Anion Gap (5-15) BUN (7-18) mg/dL Creatinine (0.7-1.3) mg/dL Est Cr Clr Drug Dosing mL/min Estimated GFR (MDRD) (>60) mL/min BUN/Creatinine Ratio (14-18) Glucose (74-106) mg/dL Calcium (8.5-10.1) mg/dL Total Bilirubin (0.2-1.0) mg/dL AST (15-37) U/L ALT (16-63) U/L Alkaline Phosphatase (46-116) U/L Total Protein (6.4-8.2) g/dl Albumin (3.4-5.0) g/dl Globulin gm/dL Albumin/Globulin Ratio (1-2) Lipase (73-393) U/L TSH 3rd Generation 1.334 (0.358-3.74) uIU/mL Ethyl Alcohol (0.00) gm% Blood Type O POSITIVE Gel Antibody Screen Negative Result Diagrams: 09/04/17 05:27 09/04/17 05:27 Problem List Initiated/Reviewed/Updated: Yes Orders Last 24hrs: Active Orders 24 hr Category Date Time Status Patient Status [ADT] Routine ADT 09/03/17 22:57 Active Ambulate [RC] ASDIRECTED Care 09/03/17 22:29 Active CIWAA Assessment [RC] ASDIRECTED Care 09/03/17 21:27 Active CIWAA Assessment [RC] Q15M Care 09/03/17 22:39 Active CIWAA Assessment [RC] Q1H Care 09/03/17 22:39 Active CIWAA Assessment [RC] Q30M Care 09/03/17 22:39 Active CIWAA Assessment [RC] Q4H Care 09/03/17 22:39 Active Cardiac Monitoring [RC] CONTINUOUS Care 09/03/17 22:30 Active EKG 12 Lead [EKG Documentation Completion] [RC] STAT Care 09/03/17 21:03 Active Height and Weight [RC] DAILY Care 09/03/17 22:29 Active Intake and Output [RC] QSHIFT Care 09/03/17 22:30 Active Notify Provider Consults [RC] ASDIRECTED Care 09/03/17 22:34 Active Notify Provider [RC] PRN Care 09/03/17 22:39 Active Oxygen Therapy [RC] PRN Care 09/03/17 22:29 Active Peripheral IV Care [RC] . DIRECTED Care 09/03/17 20:53 Active RT Aerosol Therapy [RC] ASDIRECTED Care 09/03/17 22:33 Active Up ad Felipa [RC] ASDIRECTED Care 09/03/17 22:29 Active VTE/DVT Education [RC] PER UNIT ROUTINE Care 09/03/17 22:29 Active Vital Signs [RC] Q4H Care 09/03/17 22:29 Active Consult for Substance Abuse [CONS] Routine Cons 09/03/17 22:37 Active Consult to Case Management [CONS] Routine Cons 09/03/17 22:33 Active Consult to Physician [CONS] Routine Cons 09/03/17 22:33 Active Consult to [place] Machine Operator [CONS] Routine Cons 09/03/17 22:33 Active Regular Diet [DIET] Diet 09/03/17 Dinner Active Head wo Cont [CT] Stat Exams 09/03/17 21:01 Taken BASIC METABOLIC PANEL,BMP [CHEM] AM Lab 09/04/17 05:11 Ordered BASIC METABOLIC PANEL,BMP [CHEM] AM Lab 09/05/17 05:11 Ordered BASIC METABOLIC PANEL,BMP [CHEM] AM Lab 09/06/17 05:11 Ordered BASIC METABOLIC PANEL,BMP [CHEM] AM Lab 09/07/17 05:11 Ordered BASIC METABOLIC PANEL,BMP [CHEM] AM Lab 09/08/17 05:11 Ordered CBC WITH AUTO DIFF [HEME] AM Lab 09/04/17 05:11 Ordered DRUG SCREEN, URINE [URCHEM] Stat Lab 09/03/17 20:52 Ordered INR,PT,PROTHROMBIN TIME [COAG] AM Lab 09/04/17 05:11 Ordered INR,PT,PROTHROMBIN TIME [COAG] AM Lab 09/05/17 05:11 Ordered INR,PT,PROTHROMBIN TIME [COAG] AM Lab 09/06/17 05:11 Ordered INR,PT,PROTHROMBIN TIME [COAG] AM Lab 09/07/17 05:11 Ordered INR,PT,PROTHROMBIN TIME [COAG] AM Lab 09/08/17 05:11 Ordered INR,PT,PROTHROMBIN TIME [COAG] Routine Lab 09/04/17 13:00 Ordered MAGNESIUM [CHEM] AM Lab 09/04/17 05:11 Ordered MAGNESIUM [CHEM] AM Lab 09/05/17 05:11 Ordered MAGNESIUM [CHEM] AM Lab 09/06/17 05:11 Ordered MAGNESIUM [CHEM] AM Lab 09/07/17 05:11 Ordered MAGNESIUM [CHEM] AM Lab 09/08/17 05:11 Ordered PATIENT RETYPE [BBK] Stat Lab 09/03/17 21:10 Results TSH [CHEM] Stat Lab 09/03/17 21:10 Ordered TYPE AND SCREEN [BBK] Stat Lab 09/03/17 21:10 Results UA W/MICROSCOPIC [URIN] Stat Lab 09/03/17 20:52 Ordered Acetaminophen [Tylenol] Med 09/03/17 22:29 Active 650 mg PO Q4H PRN Albuterol/Ipratropium [DuoNeb 3.0-0.5 MG/3 ML] Med 09/03/17 22:29 Active 3 ml NEB Q4H PRN Bisacodyl [Dulcolax] Med 09/03/17 22:29 Active 5 mg PO DAILY PRN Docusate Sodium [Colace] Med 09/03/17 22:29 Active 100 mg PO BID PRN Docusate Sodium/Sennosides [Senna Plus] Med 09/03/17 22:29 Active 1 tab PO BID PRN FLUoxetine [PROzac] Med 09/04/17 09:00 Active 20 mg PO DAILY Famotidine [Pepcid] Med 09/04/17 09:00 Active 20 mg PO Q12H Folic Acid Med 09/04/17 09:00 Active 1 mg PO DAILY HYDROmorphone [Dilaudid] Med 09/03/17 22:29 Active 0.25 mg IVPUSH Q2H PRN LORazepam [Ativan] Med 09/03/17 22:35 Active 2 mg IVPUSH Q4H PRN LORazepam [Ativan] Med 09/03/17 22:35 Active See Protocol IVPUSH Q4H PRN Magnesium Rep Pharmacy to Dose [Pharmacy to Dose - Med 09/03/17 22:45 Ordered Magnesium Replacement] 1 dose .XX ASDIRECTED Metoprolol Succinate [Toprol XL] Med 09/04/17 09:00 Ordered 25 mg PO DAILY Metoprolol Tartrate [Lopressor] Med 09/03/17 22:35 Active 5 mg IVPUSH Q4H PRN Multivitamins,Therapeutic [Thera] Med 09/04/17 09:00 Active 1 each PO DAILY Ondansetron [Zofran] Med 09/03/17 22:29 Active 4 mg IV Q6H PRN Phytonadione [AquaMephyton] Med 09/04/17 09:00 Once 2.5 mg PO ONETIME ONE Polyethylene Glycol 3350 [MiraLAX] Med 09/03/17 22:29 Active 17 gm PO DAILY PRN Potassium Rep Pharmacy to Dose [Pharmacy to Dose - Med 09/03/17 22:45 Pending Potassium Replacement] 1 dose .XX ASDIRECTED Promethazine [Phenergan] 12.5 mg Med 09/03/17 22:29 Active Sodium Chloride 0.9% [Normal Saline] 50 ml IV Q6H QUEtiapine [SEROquel] Med 09/04/17 21:00 Active 50 mg PO BEDTIME Sodium Chloride 0.9% [Normal Saline] 1,000 ml Med 09/03/17 22:30 Active IV ASDIRECTED Sodium Chloride 0.9% [Normal Saline] 1,000 ml Med 09/03/17 22:40 Active IV ONETIME Sodium Chloride 0.9% [Saline Flush] Med 09/03/17 20:53 Active 10 ml FLUSH ASDIRECTED PRN Thiamine [Vitamin B-1] Med 09/04/17 09:00 Active 100 mg PO DAILY Thiamine [Vitamin B-1] 200 mg Med 09/03/17 22:39 Active Sodium Chloride 0.9% [Normal Saline] 50 ml IV ONETIME Topiramate [Topamax] Med 09/04/17 09:00 Active 25 mg PO BID chlordiazePOXIDE [Librium] Med 09/03/17 22:39 Active 25 mg PO Q8H PRN cloNIDine [Catapres] Med 09/03/17 22:39 Active 0.1 mg PO Q4H PRN hydrALAZINE [Apresoline] Med 09/03/17 22:35 Active 20 mg IVPUSH Q4H PRN oxyCODONE Med 09/03/17 22:29 Active 5 mg PO Q4H PRN Peripheral IV Insertion Adult [OM.PC] Routine Oth 09/03/17 20:53 Ordered Seizure Precautions [OM.PC] Routine Oth 09/03/17 22:39 Ordered Transfuse Fresh Frozen Plasma [COMM] Stat Oth 09/03/17 21:45 Ordered Resuscitation Status Routine Resus Stat 09/03/17 22:29 Ordered Medication Orders Acetaminophen (Tylenol) 650 mg PO Q4H PRN PRN Reason: Pain (Mild 1-3)/fever Albuterol/Ipratropium (Duoneb 3.0-0.5 Mg/3 Ml) 3 ml NEB Q4H PRN PRN Reason: Shortness Of Breath/wheezing Bisacodyl (Dulcolax) 5 mg PO DAILY PRN PRN Reason: Constipation Chlordiazepoxide HCl (Librium) 25 mg PO Q8H PRN PRN Reason: Withdrawal Symptoms Clonidine HCl (Catapres) 0.1 mg PO Q4H PRN PRN Reason: Agitation Docusate Sodium (Colace) 100 mg PO BID PRN PRN Reason: Constipation Famotidine (Pepcid) 20 mg PO Q12H [facility] Fluoxetine HCl (Prozac) 20 mg PO DAILY [facility] Folic Acid (Folic Acid) 1 mg PO DAILY [facility] Stop: 09/06/17 09:01 Hydralazine HCl (Apresoline) 20 mg IVPUSH Q4H PRN PRN Reason: Hypertension Hydromorphone HCl (Dilaudid) 0.25 mg IVPUSH Q2H PRN PRN Reason: Pain (severe 7-10) Promethazine HCl 12.5 mg/ (Sodium Chloride) 50.5 mls @ 100 mls/hr IV Q6H PRN PRN Reason: Nausea/Vomiting Sodium Chloride (Normal Saline) 1,000 mls @ 75 mls/hr IV ASDIRECTED [facility] Sodium Chloride (Normal Saline) 1,000 mls @ 250 mls/hr IV ONETIME ONE Stop: 09/04/17 02:39 Last Admin: 09/03/17 22:54 Dose: 250 mls/hr Thiamine HCl 200 mg/ Sodium (Chloride) 52 mls @ 100 mls/hr IV ONETIME ONE Stop: 09/03/17 23:09 Lorazepam (Ativan) 2 mg IVPUSH Q4H PRN PRN Reason: Seizures Lorazepam (Ativan) 0 mg IVPUSH Q4H PRN; Protocol PRN Reason: Withdrawal Symptoms Magnesium Sulfate (Pharmacy To Dose - Magnesium Replacement) 1 dose .XX ASDIRECTED [facility] Metoprolol Succinate (Toprol Xl) 25 mg PO DAILY [facility] Metoprolol Tartrate (Lopressor) 5 mg IVPUSH Q4H PRN PRN Reason: Tachycardia Multivitamins (Thera) 1 each PO DAILY [facility] Ondansetron HCl (Zofran) 4 mg IV Q6H PRN PRN Reason: Nausea/Vomiting Oxycodone HCl (Oxycodone) 5 mg PO Q4H PRN PRN Reason: Pain (moderate 4-6) Phytonadione (Aquamephyton) 2.5 mg PO ONETIME ONE Stop: 09/04/17 09:01 Polyethylene Glycol (Miralax) 17 gm PO DAILY PRN PRN Reason: Constipation Potassium Chloride (Pharmacy To Dose - Potassium Replacement) 1 dose .XX ASDIRECTED [facility] Quetiapine Fumarate (Seroquel) 50 mg PO BEDTIME [facility] Senna/Docusate Sodium (Senna Plus) 1 tab PO BID PRN PRN Reason: Constipation Sodium Chloride (Saline Flush) 10 ml FLUSH ASDIRECTED PRN PRN Reason: Keep Vein Open Last Admin: 09/03/17 21:24 Dose: 10 ml Thiamine HCl (Vitamin B-1) 100 mg PO DAILY [facility] Topiramate (Topamax) 25 mg PO BID [facility] Assessment/Plan Comment:: Assessment/Plan: Acute: Warfarin Toxicity - 2/2 ETOH Abuse - He takes warfarin due to mechanical heart valves - NO significant Bleeding AND NO Recent or Urgent Surgery/Invasive Procedure - INR 10.87 - Stat Head CT scan w/o contrast-no acute bleed - Protonix 40 mg IVP x1 then H2B in AM - PO Vit K 5mg x1 now and then 2.5 mg po in AM - If INR remains > 10 in AM, will consider FFP ETOH Intoxication w/ Early Signs of Withdrawal - KALEE level 0.34 - Carries a hx/o Chronic ETOH Abuse; he drinks 6 shots of fire ball daily - He has been [facility] and has had inpatient treatment in the past - CIWAA protocol - SAC and Tele-psych consultation Chronic: Valvular Heart Disease S/p Valve Replacement H/o Wilm's Tumor S/p Nephrectomy Substance Abuse Anxiety Plan: Admit to ICU Resume Home Meds except Warfarin Routine AM Labs Fall and Seizure Precautions PT/OT consult SW/CM for d/c planning Code status: 1
[2017-09-03] MEDS ORDERED: Thiamine 200 MG in Sodium Chloride 0.9% 100 ML IV ONE (23:30)
[2017-09-04] MEDS: Sodium Chloride 0.9% 1,000 ML IV SCH ×2 (02:59→15:58)
--- NOTE | 2017-09-04 06:44 | PCM.PN ---
- General Info Date of Service: 09/04/17 Admission Dx/Problem (Free Text): Admission Diagnosis/Problem Admission Diagnosis/Problem Elevated INR (international normalized ratio) Subjective Update: Follow Up Functional Status: Reports: Pain Controlled, Tolerating Diet, Ambulating, Urinating - Review of Systems General: Denies: Fever, Weakness, Fatigue, Malaise, Chills HEENT: Reports: No Symptoms Pulmonary: Denies: Shortness of Breath Cardiovascular: Denies: Chest Pain, Palpitations, Dyspnea on Exertion, Lightheadedness Gastrointestinal: Denies: Abdominal Pain, Nausea, Vomiting Genitourinary: Reports: No Symptoms Musculoskeletal: Reports: No Symptoms Skin: Denies: Cyanosis, Mottled, Pallor, Diaphoresis Neurological: Reports: Tremors. Denies: Confusion, Seizure, Difficulty Walking , Weakness, Gait Disturbance Psychiatric: Denies: Depression, Anxiety, Agitation, Hallucinations Systems Review Comment:: No significant overnight or acute issues. He is doing pretty good. He feels better this AM. His CIWAA is 1-2 this morning. His repeat INR is 9.54. - Patient Data Vitals - Most Recent: Last Vital Signs Temp 36.4 C 09/04/17 04:00 Pulse 96 09/04/17 04:00 Resp 16 09/04/17 04:00 BP 88/69 L 09/04/17 05:15 Pulse Ox 94 L 09/04/17 04:00 Weight - Most Recent: 65.771 kg I&O - Last 24 Hours: Intake & Output 09/03/17 09/03/17 09/04/17 14:59 22:59 06:59 Intake Total 1418 Balance 1418 Lab Results Last 24 Hours: Laboratory Results - last 24 hr 09/03/17 09/03/17 09/03/17 Range/Units 21:10 21:10 21:10 WBC 7.73 (4.23-9.07) K/mm3 RBC 5.58 (4.63-6.08) M/mm3 Hgb 17.0 (13.7-17.5) gm/L Hct 49.8 (40.1-51.0) % MCV 89.2 (79.0-92.2) fl MCH 30.5 (25.7-32.2) pg MCHC 34.1 (32.2-35.5) g/dl RDW Std Deviation 45.1 H (35.1-43.9) fL Plt Count 278 (163-337) K/mm3 MPV 10.4 (9.4-12.3) fl Neut % (Auto) (34.0-67.9) % Lymph % (Auto) (21.8-53.1) % [place] % (Auto) (5.3-12.2) % Eos % (Auto) (0.8-7.0) Baso % (Auto) (0.1-1.2) % Neut # (Auto) (1.78-5.38) K/mm3 Lymph # (Auto) (1.32-3.57) K/mm3 [place] # (Auto) (0.30-0.82) K/mm3 Eos # (Auto) (0.04-0.54) K/mm3 Baso # (Auto) (0.01-0.08) K/mm3 Neutrophils % (Manual) 46 (40-60) % Band Neutrophils % 0 (0-10) % Lymphocytes % (Manual) 46 H (20-40) % Atypical Lymphs % 0 % Monocytes % (Manual) 8 (2-10) % Eosinophils % (Manual) 0 L (0.8-7.0) % Basophils % (Manual) 0 L (0.2-1.2) Platelet Estimate Adequate Plt Morphology Comment Normal RBC Morph Comment Normal PT 119.2 H* (8.0-13.0) SECONDS INR 10.87 H* APTT 48 H (22-36) SECONDS Sodium 145 (136-145) mEq/L Potassium 4.3 (3.5-5.1) mEq/L Chloride 101 (98-107) mEq/L Carbon Dioxide 34 H (21-32) mEq/L Anion Gap 14.3 (5-15) BUN 24 H (7-18) mg/dL Creatinine 1.3 (0.7-1.3) mg/dL Est Cr Clr Drug Dosing 64.65 mL/min Estimated GFR (MDRD) 59 (>60) mL/min BUN/Creatinine Ratio 18.5 H (14-18) Glucose 117 H (74-106) mg/dL Calcium 9.0 (8.5-10.1) mg/dL Total Bilirubin 0.7 (0.2-1.0) mg/dL AST 69 H (15-37) U/L ALT 24 (16-63) U/L Alkaline Phosphatase 88 (46-116) U/L Total Protein 9.1 H (6.4-8.2) g/dl Albumin 4.4 (3.4-5.0) g/dl Globulin 4.7 gm/dL Albumin/Globulin Ratio 0.9 L (1-2) Lipase 184 (73-393) U/L TSH 3rd Generation (0.358-3.74) uIU/mL Ethyl Alcohol 0.34 (0.00) gm% Blood Type Gel Antibody Screen 09/03/17 09/03/17 09/04/17 Range/Units 21:10 21:10 05:27 WBC 11.78 H (4.23-9.07) K/mm3 RBC 4.42 L (4.63-6.08) M/mm3 Hgb 13.3 L (13.7-17.5) gm/L Hct 40.8 (40.1-51.0) % MCV 92.3 H (79.0-92.2) fl MCH 30.1 (25.7-32.2) pg MCHC 32.6 (32.2-35.5) g/dl RDW Std Deviation 45.7 H (35.1-43.9) fL Plt Count 226 (163-337) K/mm3 MPV 10.9 (9.4-12.3) fl Neut % (Auto) 69.6 H (34.0-67.9) % Lymph % (Auto) 23.0 (21.8-53.1) % [place] % (Auto) 6.5 (5.3-12.2) % Eos % (Auto) 0.3 L (0.8-7.0) Baso % (Auto) 0.4 (0.1-1.2) % Neut # (Auto) 8.20 H (1.78-5.38) K/mm3 Lymph # (Auto) 2.71 (1.32-3.57) K/mm3 [place] # (Auto) 0.77 (0.30-0.82) K/mm3 Eos # (Auto) 0.03 L (0.04-0.54) K/mm3 Baso # (Auto) 0.05 (0.01-0.08) K/mm3 Neutrophils % (Manual) (40-60) % Band Neutrophils % (0-10) % Lymphocytes % (Manual) (20-40) % Atypical Lymphs % % Monocytes % (Manual) (2-10) % Eosinophils % (Manual) (0.8-7.0) % Basophils % (Manual) (0.2-1.2) Platelet Estimate Plt Morphology Comment RBC Morph Comment PT (8.0-13.0) SECONDS INR APTT (22-36) SECONDS Sodium (136-145) mEq/L Potassium (3.5-5.1) mEq/L Chloride (98-107) mEq/L Carbon Dioxide (21-32) mEq/L Anion Gap (5-15) BUN (7-18) mg/dL Creatinine (0.7-1.3) mg/dL Est Cr Clr Drug Dosing mL/min Estimated GFR (MDRD) (>60) mL/min BUN/Creatinine Ratio (14-18) Glucose (74-106) mg/dL Calcium (8.5-10.1) mg/dL Total Bilirubin (0.2-1.0) mg/dL AST (15-37) U/L ALT (16-63) U/L Alkaline Phosphatase (46-116) U/L Total Protein (6.4-8.2) g/dl Albumin (3.4-5.0) g/dl Globulin gm/dL Albumin/Globulin Ratio (1-2) Lipase (73-393) U/L TSH 3rd Generation 1.334 (0.358-3.74) uIU/mL Ethyl Alcohol (0.00) gm% Blood Type O POSITIVE Gel Antibody Screen Negative Med Orders - Current: Current Medications Acetaminophen (Tylenol) 650 mg PO Q4H PRN PRN Reason: Pain (Mild 1-3)/fever Albuterol/Ipratropium (Duoneb 3.0-0.5 Mg/3 Ml) 3 ml NEB Q4H PRN PRN Reason: Shortness Of Breath/wheezing Bisacodyl (Dulcolax) 5 mg PO DAILY PRN PRN Reason: Constipation Chlordiazepoxide HCl (Librium) 25 mg PO Q8H PRN PRN Reason: Withdrawal Symptoms Clonidine HCl (Catapres) 0.1 mg PO Q4H PRN PRN Reason: Agitation Docusate Sodium (Colace) 100 mg PO BID PRN PRN Reason: Constipation Famotidine (Pepcid) 20 mg PO Q12H [facility] Fluoxetine HCl (Prozac) 20 mg PO DAILY [facility] Folic Acid (Folic Acid) 1 mg PO DAILY [facility] Stop: 09/06/17 09:01 Hydralazine HCl (Apresoline) 20 mg IVPUSH Q4H PRN PRN Reason: Hypertension Hydromorphone HCl (Dilaudid) 0.25 mg IVPUSH Q2H PRN PRN Reason: Pain (severe 7-10) Promethazine HCl 12.5 mg/ (Sodium Chloride) 50.5 mls @ 100 mls/hr IV Q6H PRN PRN Reason: Nausea/Vomiting Sodium Chloride (Normal Saline) 1,000 mls @ 75 mls/hr IV ASDIRECTED [facility] Last Admin: 09/04/17 02:59 Dose: 75 mls/hr Lorazepam (Ativan) 2 mg IVPUSH Q4H PRN PRN Reason: Seizures Lorazepam (Ativan) 0 mg IVPUSH Q4H PRN; Protocol PRN Reason: Withdrawal Symptoms Magnesium Sulfate (Pharmacy To Dose - Magnesium Replacement) 1 dose .XX ASDIRECTED [facility] Metoprolol Succinate (Toprol Xl) 25 mg PO DAILY [facility] Metoprolol Tartrate (Lopressor) 5 mg IVPUSH Q4H PRN PRN Reason: Tachycardia Multivitamins (Thera) 1 each PO DAILY [facility] Ondansetron HCl (Zofran) 4 mg IV Q6H PRN PRN Reason: Nausea/Vomiting Oxycodone HCl (Oxycodone) 5 mg PO Q4H PRN PRN Reason: Pain (moderate 4-6) Phytonadione (Aquamephyton) 2.5 mg PO ONETIME ONE Stop: 09/04/17 09:01 Polyethylene Glycol (Miralax) 17 gm PO DAILY PRN PRN Reason: Constipation Potassium Chloride (Pharmacy To Dose - Potassium Replacement) 1 dose .XX ASDIRECTED [facility] Quetiapine Fumarate (Seroquel) 50 mg PO BEDTIME [facility] Senna/Docusate Sodium (Senna Plus) 1 tab PO BID PRN PRN Reason: Constipation Sodium Chloride (Saline Flush) 10 ml FLUSH ASDIRECTED PRN PRN Reason: Keep Vein Open Last Admin: 09/03/17 21:24 Dose: 10 ml Thiamine HCl (Vitamin B-1) 100 mg PO DAILY [facility] Topiramate (Topamax) 25 mg PO BID [facility] Discontinued Medications Folic Acid (Folic Acid) 1 mg SUBCUT ONETIME ONE Stop: 09/03/17 22:40 Last Admin: 09/04/17 00:00 Dose: 1 mg Sodium Chloride (Normal Saline) 1,000 mls @ 999 mls/hr IV ONETIME ONE Stop: 09/03/17 21:53 Last Admin: 09/03/17 21:24 Dose: 999 mls/hr Sodium Chloride (Normal Saline) 1,000 mls @ 250 mls/hr IV ONETIME ONE Stop: 09/04/17 02:39 Last Admin: 09/03/17 22:54 Dose: 250 mls/hr Thiamine HCl 200 mg/ Sodium (Chloride) 52 mls @ 100 mls/hr IV ONETIME ONE Stop: 09/03/17 23:09 Last Admin: 09/04/17 00:02 Dose: Not Given Thiamine HCl 200 mg/ Sodium (Chloride) 52 mls @ 100 mls/hr IV ONETIME ONE Stop: 09/04/17 00:01 Thiamine HCl 200 mg/ Sodium (Chloride) 102 mls @ 196.154 mls/hr IV ONETIME ONE Stop: 09/04/17 00:01 Last Admin: 09/04/17 00:01 Dose: 196.154 mls/hr Lorazepam (Ativan) 2 mg IVPUSH ONETIME ONE Stop: 09/03/17 21:29 Last Admin: 09/03/17 21:37 Dose: Not Given Lorazepam (Ativan) 1 mg IVPUSH ONETIME ONE Stop: 09/03/17 21:29 Last Admin: 09/03/17 21:35 Dose: 1 mg Pantoprazole Sodium (Protonix Iv) 40 mg IVPUSH ONETIME ONE Stop: 09/03/17 22:30 Last Admin: 09/04/17 00:00 Dose: 40 mg Phytonadione (Aquamephyton) 5 mg PO ONETIME ONE Stop: 09/03/17 21:57 Last Admin: 09/03/17 22:16 Dose: 5 mg Quetiapine Fumarate (Seroquel) 50 mg PO ONETIME ONE Stop: 09/03/17 22:44 Last Admin: 09/04/17 00:03 Dose: 50 mg Topiramate (Topamax) 25 mg PO NOW STA Stop: 09/03/17 22:45 Last Admin: 09/04/17 00:03 Dose: 25 mg - Exam Quality Assessment: No: Supplemental Oxygen General: Alert, Oriented, Cooperative, No Acute Distress HEENT: Pupils Equal, Pupils Reactive, EOMI, Mucous Membr. Moist/[place] Neck: Supple, Trachea Midline, No JVD Lungs: Clear to Auscultation, Normal Respiratory Effort Cardiovascular: Regular Rate, Regular Rhythm, Murmurs GI/Abdominal Exam: Normal Bowel Sounds, Soft, Non-Tender, No Organomegaly, No Distention, No Abnormal Bruit, No Mass (Male) Exam: Deferred Back Exam: Normal Inspection, Decreased Range of Motion Extremities: Normal Inspection, Normal Range of Motion, Non-Tender, No Pedal Edema, Normal Capillary Refill Peripheral Pulses: 2+: Dorsalis Pedis (L), Dorsalis Pedis (R) Skin: Warm, Dry, Intact Neurological: No New Focal Deficit, Other (hand tremors) Psy/Mental Status: Alert, Normal Affect, Normal Mood, Withdrawal Symptoms. No: Suicidal Ideation, Hallucinations - Problem List Review Problem List Initiated/Reviewed/Updated: Yes - My Orders Last 24 Hours: My Active Orders 09/03/17 22:29 Ambulate [RC] ASDIRECTED Height and Weight [RC] 04 Oxygen Therapy [RC] PRN Up ad Felipa [RC] ASDIRECTED VTE/DVT Education [RC] , Vital Signs [RC] Q4HR Acetaminophen [Tylenol] 650 mg PO Q4H PRN Albuterol/Ipratropium [DuoNeb 3.0-0.5 MG/3 ML] 3 ml NEB Q4H PRN Bisacodyl [Dulcolax] 5 mg PO DAILY PRN Docusate Sodium [Colace] 100 mg PO BID PRN Docusate Sodium/Sennosides [Senna Plus] 1 tab PO BID PRN HYDROmorphone [Dilaudid] 0.25 mg IVPUSH Q2H PRN Ondansetron [Zofran] 4 mg IV Q6H PRN Polyethylene Glycol 3350 [MiraLAX] 17 gm PO DAILY PRN Promethazine [Phenergan] 12.5 mg Sodium Chloride 0.9% [Normal Saline] 50 ml IV Q6H oxyCODONE 5 mg PO Q4H PRN Resuscitation Status Routine 09/03/17 22:30 Cardiac Monitoring [RC] CONTINUOUS Intake and Output [RC] 04,16 Sodium Chloride 0.9% [Normal Saline] 1,000 ml IV ASDIRECTED 09/03/17 22:33 RT Aerosol Therapy [RC] ASDIRECTED Consult to Case Management [CONS] Routine Consult to Physician [CONS] Routine Consult to Housing Grant Analyst [CONS] Routine 09/03/17 22:35 LORazepam [Ativan] 2 mg IVPUSH Q4H PRN LORazepam [Ativan] See Protocol IVPUSH Q4H PRN Metoprolol Tartrate [Lopressor] 5 mg IVPUSH Q4H PRN hydrALAZINE [Apresoline] 20 mg IVPUSH Q4H PRN 09/03/17 22:37 Consult for Substance Abuse [CONS] Routine 09/03/17 22:39 CIWAA Assessment [RC] Q1HR Notify Provider [RC] PRN chlordiazePOXIDE [Librium] 25 mg PO Q8H PRN cloNIDine [Catapres] 0.1 mg PO Q4H PRN Seizure Precautions [OM.PC] Routine 09/03/17 22:45 Magnesium Rep Pharmacy to Dose [Pharmacy to Dose - Magnesium Replacement] 1 dose .XX ASDIRECTED Potassium Rep Pharmacy to Dose [Pharmacy to Dose - Potassium Replacement] 1 dose .XX ASDIRECTED 09/03/17 Dinner Regular Diet [DIET] 09/04/17 05:27 BASIC METABOLIC PANEL,BMP [CHEM] AM INR,PT,PROTHROMBIN TIME [COAG] AM MAGNESIUM [CHEM] AM 09/04/17 09:00 FLUoxetine [PROzac] 20 mg PO DAILY Famotidine [Pepcid] 20 mg PO Q12H Folic Acid 1 mg PO DAILY Metoprolol Succinate [Toprol XL] 25 mg PO DAILY Multivitamins,Therapeutic [Thera] 1 each PO DAILY Phytonadione [AquaMephyton] 2.5 mg PO ONETIME ONE Thiamine [Vitamin B-1] 100 mg PO DAILY Topiramate [Topamax] 25 mg PO BID 09/04/17 13:00 INR,PT,PROTHROMBIN TIME [COAG] Routine 09/04/17 21:00 QUEtiapine [SEROquel] 50 mg PO BEDTIME 09/05/17 05:11 BASIC METABOLIC PANEL,BMP [CHEM] AM INR,PT,PROTHROMBIN TIME [COAG] AM MAGNESIUM [CHEM] AM 09/06/17 05:11 BASIC METABOLIC PANEL,BMP [CHEM] AM INR,PT,PROTHROMBIN TIME [COAG] AM MAGNESIUM [CHEM] AM 09/07/17 05:11 BASIC METABOLIC PANEL,BMP [CHEM] AM INR,PT,PROTHROMBIN TIME [COAG] AM MAGNESIUM [CHEM] AM 09/08/17 05:11 BASIC METABOLIC PANEL,BMP [CHEM] AM INR,PT,PROTHROMBIN TIME [COAG] AM MAGNESIUM [CHEM] AM - Plan Plan:: Assessment/Plan: Acute: Warfarin Toxicity, Improving - 2/2 ETOH Abuse - He takes warfarin due to mechanical heart valves - NO significant Bleeding AND NO Recent or Urgent Surgery/Invasive Procedure - INR 10.87--> now 9.54; repeat in the afternoon - Stat Head CT scan w/o contrast-no acute bleed - Protonix 40 mg IVP x1 then H2B in AM - PO Vit K 5mg x1 now and then 2.5 mg po in AM - INR is < 10, no need for FFP infusion ETOH Intoxication w/ Early Signs of Withdrawal - KALEE level 0.34 - Carries a hx/o Chronic ETOH Abuse; he drinks 6 shots of fire ball daily - He has been [facility] and has had inpatient treatment in the past - [facility] protocol - [facility]-refused - Tele-psych consultation Chronic: Valvular Heart Disease S/p Valve Replacement H/o Wilm's Tumor S/p Nephrectomy Substance Abuse Anxiety Plan: He is clinically much better Transfer to Med-Surg with Tele Routine AM Labs Continue folic acid, thiamine and multivitamins Fall and Seizure Precautions D/c PT/OT consult DVT PPx: Not needed he is currently supratherapeutic on INR GI PPx: H2B SW/CM for d/c planning Code status: 1 D/c pending improvement of INR
--- NOTE | 2017-09-04 06:46 | CT ---
Head CT Technique: Multiple axial sections through the brain were obtained. Comparison: Prior head CT dated 10/21/15. Findings: Ventricles along with basal cisterns and sulci over the convexities are within normal limits for the patient's age. No abnormal parenchymal densities are seen. No evidence of intracranial hemorrhage. No midline shift or mass effect is seen. Bone window settings were reviewed which show no discrete calvarial abnormality. Visualized sinuses are clear. Impression: 1. No acute intracranial abnormality is identified. No significant change is seen from prior head CT exam. Diagnostic code #1 Agree with preliminary report issued by [facility] ([facility] preliminary report dictated on 09/03/17, 11:47 PM Central Time)
[2017-09-04] MEDS ORDERED: Magnesium Sulfate/Water 2 GM in Premix Bag 1 BAG IV ONE (08:30)
[2017-09-04] MEDS: Metoprolol Succinate 25 MG Tab.ER PO SCH (09:00)
[2017-09-04] MEDS: Multivitamins,Therapeutic Tab PO SCH (09:01)
[2017-09-04] MEDS: Famotidine 20 MG Tab PO SCH ×2 (09:02→20:37)
[2017-09-04] MEDS: Topiramate 25 MG Tab PO SCH ×2 (09:03→20:37)
[2017-09-04] MEDS: FLUoxetine 20 MG Cap PO SCH (09:03)
[2017-09-04] MEDS: Folic Acid 1 MG Tab PO SCH (09:04)
[2017-09-04] MEDS: Thiamine 100 MG Tab PO SCH (09:04)
[2017-09-04] MEDS ORDERED: Phytonadione ORAL 2.5mg/2.5ml Soln Simple Syrup U/D PO ONE (09:15)
[2017-09-04] MEDS ORDERED: QUEtiapine 25 MG Tab PO SCH (21:00)
[2017-09-05 08:01] VITALS: BP 129/84
[2017-09-05] MEDS: Famotidine 20 MG Tab PO SCH (08:01)
[2017-09-05] MEDS: Metoprolol Succinate 25 MG Tab.ER PO SCH (08:01)
[2017-09-05] MEDS: FLUoxetine 20 MG Cap PO SCH (08:01)
[2017-09-05] MEDS: Folic Acid 1 MG Tab PO SCH (08:01)
[2017-09-05] MEDS: Topiramate 25 MG Tab PO SCH (08:01)
[2017-09-05] MEDS: Thiamine 100 MG Tab PO SCH (08:01)
[2017-09-05] MEDS: Multivitamins,Therapeutic Tab PO SCH (08:01)
--- NOTE | 2017-09-05 08:38 | PCM.DCSUM1 ---
Discharge Summary - Hospital Course Brief History: This is a 47 yo white male with past medical hx/o chronic etoh abuse, substance abuse, wilm's tumors, and warfarin therapy due to mechanical/ prosthetic heart valve who presented to ED for evaluation of abnormal INR level. He reported no active bleeding, no recent surgery or GI bleed. He denied any recent trauma or falls. On presentation to ED he was found intoxicated with a KALEE level of 0.34. His repeat INR shows 10.89. His head CT scan revealed no acute bleed. Patient was admitted for medical management of acute intoxication and warfarin toxicity. - Discharge Data Discharge Date: 09/05/17 Discharge Disposition: Home, Self-Care 01 Condition: Good - Discharge Diagnosis/Problem(s) (1) Alcoholic SNOMED Code(s): 6127777 ICD Code: F10.20 - ALCOHOL DEPENDENCE, UNCOMPLICATED Status: Chronic (2) Elevated international normalized ratio (INR) SNOMED Code(s): 646591305 ICD Code: R79.1 - ABNORMAL COAGULATION PROFILE Status: Resolved - Patient Summary/Data Operative Procedure(s) Performed: None Complications: None Consults: Consultations 09/03/17 22:33 Consult to Case Management [CONS] Routine Consult to Physician [CONS] Routine Consult to Accounts Manager [CONS] Routine 09/05/17 06:53 Consult to Spiritual Care [CONS] Routine Labs Pending at D/C: None Recommended Follow-up Testing/Procedures: None Planned Operative Procedure(s) after DC: None Hospital Course: Patient was primarily admitted for medical management of warfarin toxicity and alcohol intoxication. He carried a hx/o chronic etoh abuse and had been a few times admitted for alcohol detoxification. However this time, he came in with an INR of >10. No report of recent trauma or falls and his Head CT showed not acute bleed. Upon presentation, he was given oral vitamin K and was put on [facility] protocol for alcohol detox. Immediately, he improved on this regimen. His hospital course was uncomplicated and the rest of his chronic medical illness remained stable during this admission. Patient was stable upon discharge. His INR this morning was at therapeutic range. He was advised to resume home dose regimen and recommended to have his INR checked by or Sunday through his primary care's office. The patient was further advised to call his primary care provider for any questions or concerns after discharge. And most importantly, he was advised to come back or seek immediate care should he experience any new symptoms or any signs of bleeding after discharge. The patient expressed understanding and in agreement with the plans as discussed above. All questions were answered. - Patient Instructions Diet: Usual Diet as Tolerated Activity: As Tolerated Driving: May Drive Today Showering/Bathing: May Shower Notify Provider of: Fever, Increased Pain, Nausea and/or Vomiting Other/Special Instructions: - Please resume all home medications. - Recommend cut down or avoid ETH intake. - Recommend INR check through your PCP's office on -Sunday. - Call your family doctor for any questions or concerns after discharge. - Follow up with PCP in 1 week if needed. - Come back or seek immediate care should your symptoms persist or get worse - Discharge Plan Home Medications: Home Meds Metoprolol Succinate [Toprol XL] 25 mg PO DAILY #30 tab.er 02/08/17 [Rx] Warfarin [Coumadin] 4 mg PO DAILY #30 tablet 02/08/17 [Rx] Patient Handouts: Substance Use Disorder, Alcohol Intoxication, [id number] Referrals: Melvin Petty MD [Primary Care Provider] - - Discharge Summary/Plan Comment DC Time >30 min.: Yes (45 mins) Discharge Summary/Plan Comment: Discharge to Home - General Info Admission Dx/Problem (Free Text: Admission Diagnosis/Problem Admission Diagnosis/Problem Elevated INR (international normalized ratio) Subjective Update: Follow Up Functional Status: Reports: Pain Controlled, Tolerating Diet, Ambulating, Urinating. Denies: New Symptoms - Review of Systems General: Denies: Fever, Weakness, Fatigue, Malaise, Chills HEENT: Reports: No Symptoms Pulmonary: Denies: Shortness of Breath Cardiovascular: Denies: Chest Pain, Palpitations, Dyspnea on Exertion, Lightheadedness Gastrointestinal: Denies: Abdominal Pain, Nausea, Vomiting Genitourinary: Reports: No Symptoms Musculoskeletal: Reports: No Symptoms Skin: Denies: Jaundice, Mottled, Pallor, Diaphoresis, Bruising Neurological: Denies: Confusion, Dizziness, Difficulty Walking, Weakness, Gait Disturbance Psychiatric: Denies: Depression, Mood Lability, Anxiety, Agitation, Hallucinations Systems Review Comment: No overnight or acute issues. He is doing relatively well. He has no new complaints. His INR is now back to therapeutic range. - Patient Data Vitals - Most Recent: Last Vital Signs Temp 36.7 C 09/04/17 21:27 Pulse 97 09/05/17 08:01 Resp 18 09/05/17 03:00 BP 129/84 09/05/17 08:01 Pulse Ox 98 09/05/17 03:00 Weight - Most Recent: 66.723 kg I&O - Last 24 hours: Intake & Output 09/04/17 09/05/17 09/05/17 22:59 06:59 14:59 Intake Total 2041 1262 Output Total 350 Balance 1691 1262 Lab Results - Last 24 hrs: Laboratory Results - last 24 hr 09/04/17 09/04/17 09/04/17 Range/Units 12:48 12:48 13:06 PT 74.9 H* (8.0-13.0) SECONDS INR 6.87 H* Sodium (136-145) mEq/L Potassium (3.5-5.1) mEq/L Chloride (98-107) mEq/L Carbon Dioxide (21-32) mEq/L Anion Gap (5-15) BUN (7-18) mg/dL Creatinine (0.7-1.3) mg/dL Est Cr Clr Drug Dosing mL/min Estimated GFR (MDRD) (>60) mL/min BUN/Creatinine Ratio (14-18) Glucose (74-106) mg/dL Calcium (8.5-10.1) mg/dL Magnesium (1.8-2.4) mg/dl Urine Color Dark yellow (Yellow) Urine Appearance Slt cloudy H (Clear) Urine pH 6.5 (5.0-8.0) Ur Specific [place] > or = 1.030 (1.005-1.030) Urine Protein 2+ H (Negative) Urine Glucose (UA) Negative (Negative) Urine Ketones Trace H (Negative) Urine Occult Blood 2+ H (Negative) Urine Nitrite Negative (Negative) Urine Bilirubin Negative (Negative) Urine Urobilinogen 1.0 (0.2-1.0) Ur Leukocyte Esterase Negative (Negative) Urine RBC 5-10 H (0-5) /hpf Urine WBC 0-5 (0-5) /hpf Ur Epithelial Cells 0-5 (0-5) /hpf Urine Bacteria Not seen (FEW) /hpf Urine Mucus Not seen (FEW) /hpf Urine Opiates Screen Negative (NEGATIVE) Ur Buprenorphine Scrn Negative (NEGATIVE) Ur Oxycodone Screen Negative (NEGATIVE) Urine Methadone Screen Negative (NEGATIVE) Ur Propoxyphene Screen Negative (NEGATIVE) Ur Barbiturates Screen Negative (NEGATIVE) Ur Tricyclics Screen Presumptive positive H (NEGATIVE) Ur Phencyclidine Scrn Negative (NEGATIVE) Ur Amphetamine Screen Negative (NEGATIVE) U Methamphetamines Scrn Negative (NEGATIVE) U Benzodiazepines Scrn Presumptive positive H (NEGATIVE) U Cocaine Metab Screen Negative (NEGATIVE) U Marijuana (THC) Screen Negative (NEGATIVE) 09/04/17 09/05/17 09/05/17 Range/Units 16:50 05:45 05:45 PT 70.7 H* 30.1 H (8.0-13.0) SECONDS INR 6.48 H* 2.78 Sodium 138 (136-145) mEq/L Potassium 3.7 (3.5-5.1) mEq/L Chloride 105 (98-107) mEq/L Carbon Dioxide 25 (21-32) mEq/L Anion Gap 11.7 (5-15) BUN 21 H (7-18) mg/dL Creatinine 1.1 (0.7-1.3) mg/dL Est Cr Clr Drug Dosing 76.78 mL/min Estimated GFR (MDRD) > 60 (>60) mL/min BUN/Creatinine Ratio 19.1 H (14-18) Glucose 86 (74-106) mg/dL Calcium 8.2 L (8.5-10.1) mg/dL Magnesium 1.9 (1.8-2.4) mg/dl Urine Color (Yellow) Urine Appearance (Clear) Urine pH (5.0-8.0) Ur Specific [place] (1.005-1.030) Urine Protein (Negative) Urine Glucose (UA) (Negative) Urine Ketones (Negative) Urine Occult Blood (Negative) Urine Nitrite (Negative) Urine Bilirubin (Negative) Urine Urobilinogen (0.2-1.0) Ur Leukocyte Esterase (Negative) Urine RBC (0-5) /hpf Urine WBC (0-5) /hpf Ur Epithelial Cells (0-5) /hpf Urine Bacteria (FEW) /hpf Urine Mucus (FEW) /hpf Urine Opiates Screen (NEGATIVE) Ur Buprenorphine Scrn (NEGATIVE) Ur Oxycodone Screen (NEGATIVE) Urine Methadone Screen (NEGATIVE) Ur Propoxyphene Screen (NEGATIVE) Ur Barbiturates Screen (NEGATIVE) Ur Tricyclics Screen (NEGATIVE) Ur Phencyclidine Scrn (NEGATIVE) Ur Amphetamine Screen (NEGATIVE) U Methamphetamines Scrn (NEGATIVE) U Benzodiazepines Scrn (NEGATIVE) U Cocaine Metab Screen (NEGATIVE) U Marijuana (THC) Screen (NEGATIVE) Med Orders - Current: Current Medications Acetaminophen (Tylenol) 650 mg PO Q4H PRN PRN Reason: Pain (Mild 1-3)/fever Albuterol/Ipratropium (Duoneb 3.0-0.5 Mg/3 Ml) 3 ml NEB Q4H PRN PRN Reason: Shortness Of Breath/wheezing Bisacodyl (Dulcolax) 5 mg PO DAILY PRN PRN Reason: Constipation Chlordiazepoxide HCl (Librium) 25 mg PO Q8H PRN PRN Reason: Withdrawal Symptoms Clonidine HCl (Catapres) 0.1 mg PO Q4H PRN PRN Reason: Agitation Docusate Sodium (Colace) 100 mg PO BID PRN PRN Reason: Constipation Famotidine (Pepcid) 20 mg PO Q12H [facility] Last Admin: 09/05/17 08:01 Dose: 20 mg Fluoxetine HCl (Prozac) 20 mg PO DAILY [facility] Last Admin: 09/05/17 08:01 Dose: 20 mg Folic Acid (Folic Acid) 1 mg PO DAILY [facility] Stop: 09/06/17 09:01 Last Admin: 09/05/17 08:01 Dose: 1 mg Hydralazine HCl (Apresoline) 20 mg IVPUSH Q4H PRN PRN Reason: Hypertension Hydromorphone HCl (Dilaudid) 0.25 mg IVPUSH Q2H PRN PRN Reason: Pain (severe 7-10) Promethazine HCl 12.5 mg/ (Sodium Chloride) 50.5 mls @ 100 mls/hr IV Q6H PRN PRN Reason: Nausea/Vomiting Sodium Chloride (Normal Saline) 1,000 mls @ 75 mls/hr IV ASDIRECTED [facility] Last Admin: 09/04/17 15:58 Dose: 75 mls/hr Lorazepam (Ativan) 2 mg IVPUSH Q4H PRN PRN Reason: Seizures Lorazepam (Ativan) 0 mg IVPUSH Q4H PRN; Protocol PRN Reason: Withdrawal Symptoms Magnesium Sulfate (Pharmacy To Dose - Magnesium Replacement) 0 dose .XX ASDIRECTED PRN PRN Reason: RX TO WATCH MAG LEVELS Metoprolol Succinate (Toprol Xl) 25 mg PO DAILY [facility] Last Admin: 09/05/17 08:01 Dose: 25 mg Metoprolol Tartrate (Lopressor) 5 mg IVPUSH Q4H PRN PRN Reason: Tachycardia Multivitamins (Thera) 1 each PO DAILY [facility] Last Admin: 09/05/17 08:01 Dose: 1 each Ondansetron HCl (Zofran) 4 mg IV Q6H PRN PRN Reason: Nausea/Vomiting Oxycodone HCl (Oxycodone) 5 mg PO Q4H PRN PRN Reason: Pain (moderate 4-6) Polyethylene Glycol (Miralax) 17 gm PO DAILY PRN PRN Reason: Constipation Potassium Chloride (Pharmacy To Dose - Potassium Replacement) 0 dose .XX ASDIRECTED PRN PRN Reason: RX TO WATCH K LEVELS Quetiapine Fumarate (Seroquel) 50 mg PO BEDTIME [facility] Last Admin: 09/04/17 20:36 Dose: 50 mg Senna/Docusate Sodium (Senna Plus) 1 tab PO BID PRN PRN Reason: Constipation Sodium Chloride (Saline Flush) 10 ml FLUSH ASDIRECTED PRN PRN Reason: Keep Vein Open Last Admin: 09/03/17 21:24 Dose: 10 ml Thiamine HCl (Vitamin B-1) 100 mg PO DAILY [facility] Last Admin: 09/05/17 08:01 Dose: 100 mg Topiramate (Topamax) 25 mg PO BID [facility] Last Admin: 09/05/17 08:01 Dose: 25 mg Discontinued Medications Folic Acid (Folic Acid) 1 mg SUBCUT ONETIME ONE Stop: 09/03/17 22:40 Last Admin: 09/04/17 00:00 Dose: 1 mg Sodium Chloride (Normal Saline) 1,000 mls @ 999 mls/hr IV ONETIME ONE Stop: 09/03/17 21:53 Last Admin: 09/03/17 21:24 Dose: 999 mls/hr Sodium Chloride (Normal Saline) 1,000 mls @ 250 mls/hr IV ONETIME ONE Stop: 09/04/17 02:39 Last Admin: 09/03/17 22:54 Dose: 250 mls/hr Thiamine HCl 200 mg/ Sodium (Chloride) 52 mls @ 100 mls/hr IV ONETIME ONE Stop: 09/03/17 23:09 Last Admin: 09/04/17 00:02 Dose: Not Given Thiamine HCl 200 mg/ Sodium (Chloride) 52 mls @ 100 mls/hr IV ONETIME ONE Stop: 09/04/17 00:01 Thiamine HCl 200 mg/ Sodium (Chloride) 102 mls @ 196.154 mls/hr IV ONETIME ONE Stop: 09/04/17 00:01 Last Admin: 09/04/17 00:01 Dose: 196.154 mls/hr Magnesium Sulfate 2 gm/ Premix 50 mls @ 25 mls/hr IV ONETIME ONE Stop: 09/04/17 10:29 Last Admin: 09/04/17 08:58 Dose: 25 mls/hr Lorazepam (Ativan) 2 mg IVPUSH ONETIME ONE Stop: 09/03/17 21:29 Last Admin: 09/03/17 21:37 Dose: Not Given Lorazepam (Ativan) 1 mg IVPUSH ONETIME ONE Stop: 09/03/17 21:29 Last Admin: 09/03/17 21:35 Dose: 1 mg Pantoprazole Sodium (Protonix Iv) 40 mg IVPUSH ONETIME ONE Stop: 09/03/17 22:30 Last Admin: 09/04/17 00:00 Dose: 40 mg Phytonadione (Aquamephyton) 5 mg PO ONETIME ONE Stop: 09/03/17 21:57 Last Admin: 09/03/17 22:16 Dose: 5 mg Phytonadione (Aquamephyton) 2.5 mg PO ONETIME ONE Stop: 09/04/17 09:01 Last Admin: 09/04/17 08:58 Dose: Not Given Phytonadione (Aquamephyton) 2.5 mg PO ONETIME ONE Stop: 09/04/17 09:16 Last Admin: 09/04/17 10:03 Dose: 2.5 mg Quetiapine Fumarate (Seroquel) 50 mg PO ONETIME ONE Stop: 09/03/17 22:44 Last Admin: 09/04/17 00:03 Dose: 50 mg Topiramate (Topamax) 25 mg PO NOW STA Stop: 09/03/17 22:45 Last Admin: 09/04/17 00:03 Dose: 25 mg - Exam General: Reports: Alert, Oriented, Cooperative, No Acute Distress HEENT: Reports: Pupils Equal, Pupils Reactive, EOMI, Mucous Membr. Moist/[place] Neck: Reports: Supple, Trachea Midline, No JVD, No Thyromegaly Lungs: Reports: Clear to Auscultation, Normal Respiratory Effort Cardiovascular: Reports: Regular Rate, Regular Rhythm, Murmurs GI/Abdominal Exam: Normal Bowel Sounds, Soft, Non-Tender, No Organomegaly, No Distention, No Abnormal Bruit, No Mass (Male) Exam: Deferred Rectal (Males) Exam: Deferred Back Exam: Reports: Normal Inspection, Full Range of Motion Extremities: Normal Inspection, Normal Range of Motion, Non-Tender, No Pedal Edema, Normal Capillary Refill Skin: Reports: Warm, Dry, Intact Neurological: Reports: No New Focal Deficit Psy/Mental Status: Reports: Alert, Normal Affect, Normal Mood
--- NOTE | 2017-09-05 14:42 | CONS ---
CONSULTING PHYSICIAN: Micah Bazzi MD DATE OF CONSULTATION: 09/05/2017 IDENTIFICATION: The patient is a 47-year-old male who was admitted to the inpatient MICU at [facility]. He is seen for psychiatric consultation. CHIEF COMPLAINT: "I take blood thinner pills and if you drink with it, it spikes it real high." HISTORY OF PRESENT ILLNESS: The patient is a 47-year-old male who reports that he has been in aftercare recovery for alcohol dependence for the past few months after going through treatment in March of 2017. He states he has been sober for "a couple months this time" until he relapsed and started drinking "for about 2-3 days." He states he was using about 5-6 Fireballs a day. Evidently, the patient went out to an outpatient clinic appointment that he had scheduled and the staff there were very concerned that his PT and INR readings were very high and so they referred the patient to the emergency room, where he was further evaluated and subsequently admitted for likely warfarin toxicity in the face of alcohol dependence. Evidently on admission, the patient had a BAL of 0.34. The patient states that he had a heart valve replacement "back in 2015." He states he has been on warfarin since that time. He states he does generally pretty good when he stays away from the alcohol, but he notes that when he drinks he has problems. He states his mood is good and when he relapses, he tends to be a binge drinker and he notes that the "alcohol seems to be the elusive one" in terms of getting a handle on things, but he notes when he stays sober, "I am [place]" from a mood standpoint and a health standpoint in general. The patient does not want to go back to treatment at this point in time. He states "I have really done AA before and I think that is where I need to go because I have gone to a few meetings and I did get a sponsor, but I have not really made a commitment to that yet." The patient is denying any suicidal or homicidal ideas. He denies any psychotic, delusional, or paranoid symptoms. He denies any illicit substance use complicating his clinical picture. He recognizes that he has a drinking problem, he wants to get a handle on it, and he states that he wants to go to AA and continue his aftercare program once he is medically stabilized. MEDICATIONS: At the time of admission: 1. Metoprolol. 2. Coumadin. ALLERGIES: No known drug allergies. PAST MEDICAL HISTORY: 1. Status post heart valve replacement 2016. 2. Status post lung cancer as a child. 3. Status post left nephrectomy. 4. Warfarin toxicity with high INR and high PT. REVIEW OF SYSTEMS: Aside from cardiac, pulmonary, nephrologic, all other major organ systems are negative at this point in time for acute difficulties or complications. FAMILY PSYCHIATRIC AND CHEMICAL DEPENDENCY HISTORY: Unknown as patient was adopted at . PAST PSYCHIATRIC AND CHEMICAL DEPENDENCY HISTORY: The patient denies any previous psychiatric hospitalizations. Reports 2 chemical dependency treatments in the past, last one being in March of 2017. He is currently in aftercare. He has some minimal exposure to AA but not much. He had a longest period of sobriety on his own of 4-1/2 years. He did have a DWI back in 2014 that has been completely adjudicated. He has had 3 detox admits in his life. He denies any previous suicide attempts, self-injurious behaviors, or eating disorder history. Denies any abuse issues while being raised. PAST PSYCHIATRIC MEDICATION HISTORY: Includes naltrexone which cause him to become more depressed. SOCIAL HISTORY: The patient was born and raised in [place], [place]. He also has 2 siblings and 1 sister. The patient's parents were throughout his childhood and adolescence. Father worked as a renewable energy division manager at [employer]. 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 The patient's highest level of education is a GED. 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 He has never been . He has no children. Not involved in any current relationships. 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 Denies any prior service or current legal difficulties. He is raised [facility]. He enjoys working out, running a mile, bikes, and hiking. MENTAL STATUS EXAMINATION: The patient is a 47-year-old white male in no apparent distress. Speech is of regular rate and rhythm. The patient is cognitively oriented. Psychomotor activity is within normal limits. There is no abnormal motor movements or tics observed. Gait and station are not observed as this patient is lying in bed for the purposes of the inpatient consult. Mood is good. Affect is cooperative overall for the purposes of the inpatient consult. There is no behavioral or stated evidence of acute suicidal or homicidal ideation or acute psychotic, delusional, or paranoid symptoms. Thought processes are organized. There are no manic symptoms or loose associations evident. Judgment and insight appear unimpaired at this point in time. Motivation for help appears good. VITALS: 133/80, 78, 18, 98.6 degrees. IMPRESSION: Raymond I: 1. Alcohol dependence, F10.20. 2. Depression, not otherwise specified, F32.9. 3. Anxiety disorder, not otherwise specified, F41.9. Raymond II: None. Raymond III: 1. Status post heart valve replacement, 2016. 2. Status post lung cancer as a child. 3. Status post left nephrectomy. 4. Warfarin toxicity with high PT and high INR. Raymond IV: Severe. Raymond V: 60. PLAN: 1. Sobriety. 2. Aftercare as scheduled once medically stabilized. 3. AA rep to visit the patient while on unit. 4. Pastoral guidance. 5. Recommend Seroquel 50 mg at bedtime to help with clarity of thought and to minimize any development of psychotic symptoms as the patient goes into detox or withdrawal. 6. Recommend Topamax 50 mg at bedtime for seizure prophylaxis. 7. Ativan per [facility] protocol. 8. Thiamine supplementation. 9. Folic acid supplementation. 10.I did discuss with the patient that if he has further admissions going forward under similar presentations, the possibility of commitment for alcohol treatment will remain an option, but at this point in time, this patient is already on an aftercare program and wanting to go to AA. This seems like a proper course of action once he is medically stabilized. 11.We will continue follow up with the patient on an as needed basis while he remains on the inpatient MICU. 12.We will follow up with the patient sooner if any complications in the interim. 13.Crisis plan is in place. MMODAL /[id number]
== END 2017-09-05 08:50 | disposition home or self-care (01) | DRG 897 ==
LOC: JD.ED 19:58 → JD.ICU 22:57
PROVIDERS: ADMIT Internal Medicine; ATTEND Internal Medicine
DX: F10.239 Alcohol dependence with withdrawal, unspecified (principal); R79.1 Abnormal coagulation profile; T45.515A Adverse effect of anticoagulants, initial encounter; F41.9 Anxiety disorder, unspecified; R53.1 Weakness; R53.83 Other fatigue; F10.229 Alcohol dependence with intoxication, unspecified; F32.9 Major depressive disorder, single episode, unspecified; E83.42 Hypomagnesemia; Z92.21 Personal history of antineoplastic chemotherapy; Z79.01 Long term (current) use of anticoagulants; Z95.2 Presence of prosthetic heart valve; Z79.899 Other long term (current) drug therapy; Z85.118 Personal history of other malignant neoplasm of bronchus and lung; Z86.010 Personal history of colon polyps; Z85.528 Personal history of other malignant neoplasm of kidney; Z90.5 Acquired absence of kidney; Z87.891 Personal history of nicotine dependence
CPT/HCPCS: 36415; 70450; 70450-26; 80048; 80053; 80306; 81001; 83690; 83735; 84443; 85025; 85610; 85730; 86850; 86900; 86901; 93005; 96361; 96374; 99285-25; A9270-GY; C9113; G0480; J2060; J3411; J3430; J3475; J7030; J7040; J7050

== ENCOUNTER 2017-10-23 03:40 | Emergency (ER) | payer SELFPAY ==
[2017-10-23 05:03] VITALS: BP 150/94
--- NOTE | 2017-10-23 05:18 | EDM.PDOCBH ---
ED HPI GENERAL MEDICAL PROBLEM - General Chief Complaint: Drug or Alcohol Abuse Stated Complaint: BLOOD PROBLEM Time Seen by Provider: 10/23/17 05:12 Source of Information: Reports: Patient History Limitations: Reports: No Limitations - History of Present Illness INITIAL COMMENTS - FREE TEXT/NARRATIVE: The patient says he has been drinking heavily the past few days and he is worried his INR is elevated. He would like that checked. 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 He has a history of alcoholism. He has no trouble with bleeding now. Onset: Gradual Duration: Day(s): Severity: Moderate Improves with: Reports: None Worsens with: Reports: None Associated Symptoms: Reports: No Other Symptoms - Related Data Allergies Allergy/AdvReac Type Severity Reaction Status Date / Time No Known Allergies Allergy Verified 10/23/17 04:59 Home Meds: Home Meds Metoprolol Succinate [Toprol XL] 25 mg PO DAILY #30 tab.er 02/08/17 [Rx] Warfarin [Coumadin] 4 mg PO DAILY #30 tablet 02/08/17 [Rx] Warfarin [Coumadin] 6 mg PO MOFR 10/23/17 [History] Past Medical History Cardiovascular History: Reports: Heart Valve Replacement Other Cardiovascular History: aortic stenosis, valvular heart disease, aortic regurgitation, is on coumadin Respiratory History: Reports: Other (See Below) Other Respiratory History: lung cancer at age 3 Gastrointestinal History: Reports: Colon Polyp Other Gastrointestinal History: globus sensation Genitourinary History: Reports: Dialysis Other Genitourinary History: 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 Kidney was removed. Social & Family History - Family History Family Medical History: Noncontributory - Tobacco Use Smoking Status *Q: Never Smoker - Caffeine Use Caffeine Use: Reports: Coffee - Recreational Drug Use Recreational Drug Use: No ED ROS GENERAL - Review of Systems Review Of Systems: See Below Constitutional: Reports: No Symptoms HEENT: Reports: No Symptoms Respiratory: Reports: No Symptoms Cardiovascular: Reports: No Symptoms Endocrine: Reports: No Symptoms GI/Abdominal: Reports: No Symptoms : Reports: No Symptoms Musculoskeletal: Reports: No Symptoms Skin: Reports: No Symptoms ED EXAM, BEHAVIORAL HEALTH - Physical Exam Exam: See Below Exam Limited By: No Limitations General Appearance: Alert, No Apparent Distress Ears: Normal External Exam Nose: Normal Inspection Head: Atraumatic, Normocephalic Neck: Normal Inspection Respiratory/Chest: No Respiratory Distress, Lungs Clear, Normal Breath Sounds Cardiovascular: Regular Rate, Rhythm, No Murmur GI/Abdominal: Soft, Non-Tender, No Organomegaly, No Mass Extremities: Normal Inspection Neurological: Alert, No Motor/Sensory Deficits, Oriented x 3 COURSE, BEHAVIORAL HEALTH COMP - Course Vital Signs: Last Vital Signs Temp 98.9 F 10/23/17 03:45 Pulse 110 H 10/23/17 03:45 Resp 17 10/23/17 03:45 BP 150/94 H 10/23/17 03:45 Pulse Ox 99 10/23/17 03:45 Orders, Labs, Meds: Active Orders 24 hr Category Date Time Status CBC WITH AUTO DIFF [HEME] Stat Lab 10/23/17 05:05 Ordered COMPREHENSIVE METABOLIC PN,CMP [CHEM] Stat Lab 10/23/17 05:05 Ordered ETOH [ETHANOL BLOOD MEDICAL] [CHEM] Stat Lab 10/23/17 05:05 Ordered INR,PT,PROTHROMBIN TIME [COAG] Stat Lab 10/23/17 05:05 Ordered PTT,PARTIAL THROMBOPLSTIN TIME [COAG] Stat Lab 10/23/17 05:05 Ordered Re-Assessment/Re-Exam: I ordered labs on him. His CBC looks good. His CMP shows elevated liver enzymes. His INR is 8.03. I will have him hole his coumadin for 2 days. Departure - Departure Time of Disposition: 05:20 Disposition: Home, Self-Care 01 Condition: Good Clinical Impression: Alcohol abuse, Supratherapeutic INR - Discharge Information Additional Instructions: Do not take your coumadin for 2 days. Follow up with your doctor to have it rechecked on Sunday. Please return if you are worse. - My Orders Last 24 Hours: My Active Orders 10/23/17 05:05 CBC WITH AUTO DIFF [HEME] Stat COMPREHENSIVE METABOLIC PN,CMP [CHEM] Stat ETOH [ETHANOL BLOOD MEDICAL] [CHEM] Stat INR,PT,PROTHROMBIN TIME [COAG] Stat PTT,PARTIAL THROMBOPLSTIN TIME [COAG] Stat - Assessment/Plan Last 24 Hours: My Active Orders 10/23/17 05:05 CBC WITH AUTO DIFF [HEME] Stat COMPREHENSIVE METABOLIC PN,CMP [CHEM] Stat ETOH [ETHANOL BLOOD MEDICAL] [CHEM] Stat INR,PT,PROTHROMBIN TIME [COAG] Stat PTT,PARTIAL THROMBOPLSTIN TIME [COAG] Stat
== END 2017-10-23 05:23 | disposition home or self-care (01) ==
LOC: JD.ED 03:40
DX: F10.10 Alcohol abuse, uncomplicated (principal); R79.1 Abnormal coagulation profile; Z79.01 Long term (current) use of anticoagulants
CPT/HCPCS: 36415; 80053; 85025; 85610; 85730; 99284; G0480

== ENCOUNTER 2018-02-09 23:10 | Emergency (ER) | payer SELFPAY ==
[2018-02-09 23:22] VITALS: BP 141/92
--- NOTE | 2018-02-10 01:51 | EDM.PDOCBH ---
ED HPI GENERAL MEDICAL PROBLEM - General Chief Complaint: Drug or Alcohol Abuse Stated Complaint: ALCOHOL ISSUES Time Seen by Provider: 02/10/18 00:26 Source of Information: Reports: Patient History Limitations: Reports: No Limitations - History of Present Illness INITIAL COMMENTS - FREE TEXT/NARRATIVE: This is a 47-year-old male. He was here just previously today around 1 :30 and he was seen because he wanted help for his alcoholism. They started an IV they gave him thiamine and folate, multivitamin, magnesium, and saline with a single dose of 1 mg lorazepam because he was somewhat restless. This seemed to help the patient immensely and he felt so good he decided he go back home and drink some more. So he comes back this evening stating that he wants help to get off his alcohol but he left so he could drink some more from this afternoon. I explained to him that we would be happy to help him but as long as he is not willing to help himself and leaves when we might be able to help him so he go drink again that this is not going to work. He already has an appointment with [facility] on Sunday for his alcoholism. It should be noted that his PT for his Coumadin due to his Mechanical aortic valve was too high to register. The patient denies any bleeding and now that he's had some more drinks he says he is feeling a little worse than he did before he left AGAINST MEDICAL ADVICE. - Related Data Allergies Allergy/AdvReac Type Severity Reaction Status Date / Time No Known Allergies Allergy Verified 02/09/18 23:19 Home Meds: Home Meds Metoprolol Succinate [Toprol XL] 25 mg PO DAILY #30 tab.er 02/08/17 [Rx] Warfarin [Coumadin] 4 mg PO DAILY #30 tablet 02/08/17 [Rx] Warfarin [Coumadin] 6 mg PO MOFR 10/23/17 [History] Past Medical History Cardiovascular History: Reports: Heart Valve Replacement Other Cardiovascular History: aortic stenosis, valvular heart disease, aortic regurgitation, is on coumadin Respiratory History: Reports: Other (See Below) Other Respiratory History: lung cancer at age 3 Gastrointestinal History: Reports: Colon Polyp Other Gastrointestinal History: globus sensation Genitourinary History: Reports: Dialysis Other Genitourinary History: 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 Psychiatric History: Reports: Addiction, Anxiety Other Psychiatric History: history of alcoholism Endocrine/Metabolic History: Reports: Other (See Below) Other Endocrine/Metabolic History: 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 Kidney was removed. Social & Family History - Family History Family Medical History: Noncontributory - Tobacco Use Smoking Status *Q: Former Smoker Used Tobacco, but Quit: Yes Month/Year Tobacco Last Used: 2005 - Caffeine Use Caffeine Use: Reports: Coffee - Alcohol Use Days Per Week of Alcohol Use: 7 Number of Drinks Per Day: 6 Total Drinks Per Week: 42 - Recreational Drug Use Recreational Drug Use: Yes Drug Use in Last 12 Months: No Recreational Drug Use Frequency: Not Used In Over 6 Months ED ROS GENERAL - Review of Systems Review Of Systems: See Below Constitutional: Reports: Weakness, Fatigue. Denies: Fever, Chills HEENT: Reports: No Symptoms Respiratory: Denies: Shortness of Breath, Cough Cardiovascular: Denies: Chest Pain Endocrine: Reports: No Symptoms GI/Abdominal: Denies: Abdominal Pain, Diarrhea, Nausea, Vomiting : Reports: No Symptoms Musculoskeletal: Reports: No Symptoms Skin: Reports: No Symptoms Neurological: Denies: Dizziness, Headache, Syncope, Trouble Speaking, Difficulty Walking Psychiatric: Denies: Anxiety Hematologic/Lymphatic: Reports: No Symptoms ED EXAM, BEHAVIORAL HEALTH - Physical Exam Exam: See Below Exam Limited By: No Limitations General Appearance: Alert, WD/WN, No Apparent Distress Eye Exam: Bilateral Eye: Normal Inspection Ears: Normal External Exam Nose: Normal Inspection Throat/Mouth: Normal Inspection, Normal Lips, Normal Oropharynx, Normal Voice, No Airway Compromise Head: Normocephalic Neck: Supple Respiratory/Chest: No Respiratory Distress, Lungs Clear, Normal Breath Sounds, Other (He has a midline surgical scar noted) Cardiovascular: Regular Rate, Rhythm, Systolic Murmur GI/Abdominal: Soft, Non-Tender Back Exam: Full Range of Motion Extremities: Normal Inspection, Normal Range of Motion Neurological: Alert, Normal Mood/Affect, Oriented x 3 Psychiatric: Alert, Normal Affect, Normal Cognition, Normal Mood, Oriented Skin Exam: Warm, Dry COURSE, BEHAVIORAL HEALTH COMP - Course Vital Signs: Last Vital Signs Temp 98.8 F 02/09/18 23:19 Pulse 107 H 02/09/18 23:19 Resp 18 02/09/18 23:19 BP 141/92 H 02/09/18 23:19 Pulse Ox 97 02/09/18 23:19 Orders, Labs, Meds: Active Orders 24 hr Category Date Time Status DRUG SCREEN, URINE [URCHEM] Stat Lab 02/09/18 23:39 Ordered UA W/MICROSCOPIC [URIN] Stat Lab 02/09/18 23:39 Ordered Laboratory Tests 02/09/18 02/09/18 02/09/18 Range/Units 23:56 23:56 23:56 WBC 6.24 (4.23-9.07) K/mm3 RBC 4.33 L (4.63-6.08) M/mm3 Hgb 13.4 L (13.7-17.5) gm/L Hct 39.2 L (40.1-51.0) % MCV 90.5 (79.0-92.2) fl MCH 30.9 (25.7-32.2) pg MCHC 34.2 (32.2-35.5) g/dl RDW Std Deviation 43.8 (35.1-43.9) fL Plt Count 129 L (163-337) K/mm3 MPV 10.9 (9.4-12.3) fl Neut % (Auto) 58.6 (34.0-67.9) % Lymph % (Auto) 29.5 (21.8-53.1) % [place] % (Auto) 10.6 (5.3-12.2) % Eos % (Auto) 0.8 (0.8-7.0) Baso % (Auto) 0.5 (0.1-1.2) % Neut # (Auto) 3.66 (1.78-5.38) K/mm3 Lymph # (Auto) 1.84 (1.32-3.57) K/mm3 [place] # (Auto) 0.66 (0.30-0.82) K/mm3 Eos # (Auto) 0.05 (0.04-0.54) K/mm3 Baso # (Auto) 0.03 (0.01-0.08) K/mm3 PT (9.5-12.1) SECONDS INR Sodium 143 (136-145) mEq/L Potassium 3.5 (3.5-5.1) mEq/L Chloride 103 (98-107) mEq/L Carbon Dioxide 31 (21-32) mEq/L Anion Gap 12.5 (5-15) BUN 14 (7-18) mg/dL Creatinine 1.0 (0.7-1.3) mg/dL Est Cr Clr Drug Dosing 81.14 mL/min Estimated GFR (MDRD) > 60 (>60) mL/min BUN/Creatinine Ratio 14.0 (14-18) Glucose 108 H (74-106) mg/dL Calcium 7.9 L (8.5-10.1) mg/dL Total Bilirubin 0.7 (0.2-1.0) mg/dL AST 82 H (15-37) U/L ALT 29 (16-63) U/L Alkaline Phosphatase 73 (46-116) U/L Total Protein 7.3 (6.4-8.2) g/dl Albumin 3.5 (3.4-5.0) g/dl Globulin 3.8 gm/dL Albumin/Globulin Ratio 0.9 L (1-2) Lipase 171 (73-393) U/L Ethyl Alcohol 0.39 (0.00) gm% Re-Assessment/Re-Exam: His INR and PTT are still too high for the blood clot for them to be able to get a value. His alcohol level is the same pretty much as it was at 1:30 this afternoon. Which means he is continue to drink after he left the ER. I'm going to let him sleep here for a little bit and then I'm going to suggest that he stop his Coumadin for a couple of days and have the INR rechecked that he follow up with [facility] on Sunday as planned. 02/10/2018 5:43 AM The patient called a cab and he is not anxious to stay and get the paperwork. I did talk to him about the elevated Coumadin level with the INR and told him that alcohol and Coumadin do not mix and if he falls and hits his head he can get a bleed in the brain and he might not survive this. Therefore he needs to stop the Coumadin for the next 2 days recheck an INR before he resumes again. The patient states he understands and he doesn't want to sign any paperwork to get out of here. Departure - Departure Time of Disposition: 05:40 Disposition: Home, Self-Care 01 Condition: Fair Clinical Impression: Alcohol abuse - Discharge Information *PRESCRIPTION DRUG MONITORING PROGRAM REVIEWED*: Not Applicable *COPY OF PRESCRIPTION DRUG MONITORING REPORT IN PATIENT JOSE: Not Applicable Referrals: Melvin Petty MD [Primary Care Provider] - Forms: ED Department Discharge Additional Instructions: Follow up with [facility] on Sunday as scheduled, you need to stop the Coumadin for the next 2 days and then recheck an INR 4 units started again because it's way too high and you have a risk of bleeding including bleeding in your head which will kill you, stop your drinking because the alcohol and the Coumadin do not mix, return to the ER if needed - My Orders Last 24 Hours: My Active Orders 02/09/18 23:39 DRUG SCREEN, URINE [URCHEM] Stat UA W/MICROSCOPIC [URIN] Stat - Assessment/Plan Last 24 Hours: My Active Orders 02/09/18 23:39 DRUG SCREEN, URINE [URCHEM] Stat UA W/MICROSCOPIC [URIN] Stat
== END 2018-02-10 05:46 | disposition home or self-care (01) ==
LOC: JD.ED 23:10
DX: F10.229 Alcohol dependence with intoxication, unspecified (principal); Y90.9 Presence of alcohol in blood, level not specified; Z87.891 Personal history of nicotine dependence; Z79.01 Long term (current) use of anticoagulants
CPT/HCPCS: 36415; 80053; 83690; 85025; 85610; 99284; G0480

== ENCOUNTER 2018-10-04 08:30 | Day surgery (SDC) | payer BC ==
--- NOTE | 2018-10-03 11:00 | PCM.PREANE ---
Preanesthetic Assessment - Anesthesia/Transfusion/Family Hx Anesthesia History: Prior Anesthesia Without Reaction Family History of Anesthesia Reaction: No Transfusion History: Prior Transfusion Without Reaction Intubation History: Unknown - Review of Systems General: No Symptoms Pulmonary: No Symptoms (Smoker:quit 2005/ETOH:January 2018 /? exercise induced asthma/history of lung CA-history of chemotherappy/radiation), Cough Cardiovascular: No Symptoms (S/P AVR(aortic valve replacement) in 2016/ Pericardial window in 2016) Gastrointestinal: No Symptoms (GERD) Neurological: No Symptoms, Seizure (History of seizure prior to heart surgery in 2016/patient thinks ETOH related.) Other: Reports: None (Acute Renal Failure/History of alcoholism/History of Hepatitis C/Left nephrectomy in 1973), Easy Bleeding (on coumadin due to mechanical valve), Easy Bruising - Physical Assessment NPO Status Date: 10/03/18 NPO Status Time: 20:00 Pulse: 89 O2 Sat by Pulse Oximetry: 98 Respiratory Rate: 16 Blood Pressure: 128/69 Temperature: 36.8 C Height: 1.7 m Weight: 62 kg ASA Class: 3 Mental Status: Alert & Oriented x3 Airway Class: Mallampati = 2 Dentition: Reports: Normal Dentition, Caries Thyro-Mental Finger Breadths: 3 Mouth Opening Finger Breadths: 3 ROM/Head Extension: Full Lungs: Clear to Auscultation, Normal Respiratory Effort Cardiovascular: Regular Rate, Regular Rhythm, No Murmurs - Lab Values: All labs reviewed and noted and within acceptable ranges to proceed with scheduled procedure. - Imaging/EKG Impressions: Echocardiogram: 2018: EF: 65-70%, Grade II diastolic dysfunction, presence of prosthetic valve noted. EKG: ST rate= 111, prolongeed QT interval, consider ST elevation anterior leads / likely secondary repolarization, borderline right axis deviation, left ventricular hypertrophy. - Allergies Allergies/Adverse Reactions: Allergies Allergy/AdvReac Type Severity Reaction Status Date / Time No Known Allergies Allergy Verified 10/03/18 13:27 - Anesthesia Plan Pre-Op Medication Ordered: Beta Samantha Beta Samantha: Metoprolol Med Last Dose Date: 10/04/18 Med Last Dose Time: 06:30 - Acknowledgements Anesthesia Type Planned: MAC Pt an Appropriate Candidate for the Planned Anesthesia: Yes Alternatives and Risks of Anesthesia Discussed w Pt/Guardian: Yes Pt/Guardian Understands and Agrees with Anesthesia Plan: Yes PreAnesthesia Questionnaire HEENT History: Reports: None Cardiovascular History: Reports: Heart Valve Replacement Other Cardiovascular History: aortic stenosis, valvular heart disease, aortic regurgitation, is on coumadin Respiratory History: Reports: Other (See Below) Other Respiratory History: lung cancer at age 3 Gastrointestinal History: Reports: Colon Polyp Other Gastrointestinal History: globus sensation, rectal conyloma acuminata, ischemic hepatis Genitourinary History: Reports: Dialysis Other Genitourinary History: 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, acute renal failure HAIR COLORIST History: Reports: None Musculoskeletal History: Reports: None Neurological History: Reports: Seizure Psychiatric History: Reports: Addiction, Anxiety Other Psychiatric History: history of alcoholism Endocrine/Metabolic History: Reports: Other (See Below) Other Endocrine/Metabolic History: 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3 Hematologic History: Reports: Anticoagulation Therapy Immunologic History: Reports: None Oncologic (Cancer) History: Reports: Lung, Renal Other Oncologic History: 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 Kidney was removed. Neurological Surgical History: Reports: None Musculoskeletal Surgical History: Reports: None Dermatological Surgical History: Reports: None - HOME MEDS Home Medications: Home Meds Warfarin [Coumadin] 6 mg PO MOFR 10/23/17 [History] Metoprolol Succinate 25 mg PO DAILY 10/03/18 [History] Pantoprazole Sodium [Protonix] 20 mg PO DAILY 10/03/18 [History] Warfarin [Coumadin] 4 mg PO SUTUWETHSA 10/03/18 [History] - CURRENT (IN HOUSE) MEDS Current Meds: Current Medications Lactated Ringer's (Ringers, Lactated) 1,000 mls @ 125 mls/hr IV ASDIRECTED SHERLY Stop: 10/04/18 23:00 Lidocaine/Sodium Bicarbonate (Buffered Lidocaine 1% In Ns 8.4%) 0.25 ml IDERM ONETIME PRN PRN Reason: Prior to IV Start Stop: 10/04/18 23:00 Sodium Chloride (Saline Flush) 10 ml FLUSH ASDIRECTED PRN PRN Reason: Keep Vein Open Stop: 10/04/18 23:00
--- NOTE | 2018-10-04 07:15 | PCM.HP ---
H&P History of Present Illness - General Date of Service: 10/04/18 Admit Problem/Dx: adenomatous colon polyp, hx of rectal condyloma acuminata, need for surveillance colonoscopy with possible polypectomy, possible biopsies Source of Information: Patient - History of Present Illness Initial Comments - Free Text/Narative: The patient is a 47-year-old male referred by Dr. Petty for surveillance colonoscopy. Patient is known to the clinic. He presents today for colonoscopy. He was last evaluated in the clinic on 08/30/18. He denies major changes to medical history or recent illnesses. His Coumadin has been held, he has been bridged with Lovenox. No Lovenox was administered yesterday afternoon, administered in morning only per coagulation clinic instructions. INR on 10/03 was 1.2. He did complete colonoscopy prep and stools were clear. 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 The patient reportsif eats a lot ofcheese does constipate at times. NO: diarrhea/ hematochezia/ melena/blood on tissue paper/hemorrhoids. . Bowel movements are described as regular and easy to pass. No unintentional weight loss. No abdominal pain today. NO: history of ulcerative colitis or Crohn's disease. Denies any family history of inflammatory bowel disease or GI cancers- patient is adopted. Last colonoscopy was 2014, sessile serrated polyp was found in hepatic flexure. He did also undergo an exam under anesthesia and excision of hemorrhoidal mass May 17, [address] Mere Britt the mass was found to be a condyloma acuminata on pathology. He denies an recurrence of anal/rectal lesions. No history of reflux, heartburn, nausea, vomiting, or dysphagia. - Related Data Allergies/Adverse Reactions: Allergies Allergy/AdvReac Type Severity Reaction Status Date / Time No Known Allergies Allergy Verified 10/03/18 13:27 Home Medications: Home Meds Warfarin [Coumadin] 6 mg PO MOFR 10/23/17 [History] Metoprolol Succinate 25 mg PO DAILY 10/03/18 [History] Pantoprazole Sodium [Protonix] 20 mg PO DAILY 10/03/18 [History] Warfarin [Coumadin] 4 mg PO SUTUWETHSA 10/03/18 [History] Past Medical History HEENT History: Reports: None Cardiovascular History: Reports: Heart Valve Replacement Other Cardiovascular History: aortic stenosis, valvular heart disease, aortic regurgitation, infectious pericarditis Respiratory History: Reports: Other (See Below) Other Respiratory History: lung cancer at age 3, pericardial effusion Gastrointestinal History: Reports: Colon Polyp Other Gastrointestinal History: globus sensation, rectal conyloma acuminata, ischemic hepatis Genitourinary History: Reports: Dialysis Other Genitourinary History: 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, acute renal failure 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: Reports: None Musculoskeletal History: Reports: Back Pain, Chronic Neurological History: Reports: Seizure Psychiatric History: Reports: Addiction, Anxiety Other Psychiatric History: history of alcoholism Endocrine/Metabolic History: Reports: Other (See Below) Other Endocrine/Metabolic History: 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3 Hematologic History: Reports: Anticoagulation Therapy Immunologic History: Reports: None Oncologic (Cancer) History: Reports: Lung, Renal Other Oncologic History: 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 Kidney was removed. Neurological Surgical History: Reports: None Musculoskeletal Surgical History: Reports: None Dermatological Surgical History: Reports: None Social & Family History - Family History Family Medical History: Noncontributory - Tobacco Use Smoking Status *Q: Current Some Day Smoker Years of Tobacco use: 30 Packs/Tins Daily: 0.2 - Caffeine Use Caffeine Use: Reports: Coffee, Energy Drinks - Recreational Drug Use Recreational Drug Use: No Drug Use in Last 12 Months: No H&P Review of Systems - Review of Systems: Review Of Systems: See Below Free Text/Narrative: Denies any exertional chest pain or shortness of breath. History of any easy bleeding or bruising, with elevated INR. No personal history of clotting or bleeding disorders. No history of anesthetic complications. Denies presence of chest pain, palpitations, lower extremity edema, dyspnea at rest, orthopnea, claudication, wheezing, obstructive sleep apnea, snoring, witnessed apnea. NO: upper respiratory symptoms in the last two weeks. Takes Coumadin for mechanical heart valve. No history of anemia. NO: joint replacement. Hx of seizure prior to heart surgery in 2015, cause unknown, no recurrence. NO: stroke. No fever, chills, or nightsweats. EK11/2015 w EKG Severity w - ABNORMAL ECG - w EKG Impression w Sinus bradycardia with paroxysmal atrial fibrillation Borderline right axis deviation Borderline T wave abnormalities Prolonged QT interval Echo:2018 Conclusion: 1. Left ventricular ejection fraction is 65 to 70%. 2. Pseudonormalization pattern with reduced left ventricular compliance and elevated LV filling pressures-(Grade II Diastolic Dysfunction). 3. [employer] mechanical prosthesis in the aortic valve position functioning normally. Electronically signed by: [id number] ALEX DOWLING MD Signature Date/Time: 08/01/2017/12:57:09 PM He did see cardiology September 10 and Tran Fontaine PA-C commented there was "no reason he could not have colonoscopy," per office note As above he does follow with cardiology, for history of severe aortic stenosis and prior syncope. The patient has a history of aortic valve replacement with 21 mm Top-Hat [employer] valve in 2015. He had a pericardial window done for pericardial effusion after surgery. He has been treated for hepatitis C. early in 2018 the patient was consuming alcohol heavily INR had been greater than 7. The patient did have a CT scan done which was normal at that time. The patient is anticoagulated with Coumadin due to mechanical aortic valve. He does have diastolic dysfunction . . NO alcohol in over 7 months. All other systems reviewed and were negative except as per history of present illness. General: Reports: No Symptoms HEENT: Reports: Other (noise induced hearing loss) Pulmonary: Reports: No Symptoms Cardiovascular: Reports: No Symptoms Gastrointestinal: Reports: No Symptoms Skin: Reports: No Symptoms, Other (skin lesion to back, planned removal with Dr. Petty) Psychiatric: Reports: No Symptoms Neurological: Reports: No Symptoms Hematologic/Lymphatic: Reports: Easy Bleeding Immunologic: Reports: No Symptoms Exam - Exam Exam: See Below - Exam General: Alert, Oriented HEENT: Conjunctiva Clear Lungs: Clear to Auscultation, Normal Respiratory Effort Cardiovascular: Regular Rate, Regular Rhythm, Systolic Murmur (Aortic valve) GI/Abdominal Exam: Soft, Non-Tender, No Distention Back Exam: Normal Inspection Extremities: Normal Inspection, No Pedal Edema Peripheral Pulses: 1+: Radial (L), Radial (R) Skin: Warm, Dry, Intact, Other (multiple tattoos) Neurological: No: Focal Deficit Neuro Extensive - Mental Status: Alert, Oriented x3, Normal Mood/Affect, Normal Cognition, Memory Intact Psychiatric: Alert, Normal Affect, Normal Mood - Patient Data Lab Results Last 24 hrs: Results for DARLINE WOODALL ( ) as of 10/04/2018 09:07 Ref. Range 08/05/2018 12:23 08/30/2018 14:03 09/10/2018 10:20 09/25/2018 13:27 2018 07:38 Protime Latest Ref Range: 12.0 - 14.5 secs 27.7 (H) 36.3 (H) 30.4 (H) 29.1 (H) 14.7 (H) INR Latest Ref Range: 0.9 - 1.1 2.6 (H) 3.7 (H) 2.9 (H) 2.8 (H) 1.2 (H) - Problem List (1) Adenomatous polyp of colon SNOMED Code(s): 533360839 ICD Code: D12.6 - BENIGN NEOPLASM OF COLON, UNSPECIFIED Status: Acute Current Visit: No Qualifiers: Colon location: unspecified part of colon Qualified Code(s): D12.6 - Benign neoplasm of colon, unspecified (2) Condyloma acuminata Status: Acute Current Visit: No Problem Details: of rectum Problem List Initiated/Reviewed/Updated: Yes Orders Last 24hrs: Active Orders 24 hr Category Date Time Status Peripheral IV Care [RC] . DIRECTED Care 10/04/18 07:00 Active Verify Patient Consent Obtain [RC] ASDIRECTED Care 10/04/18 07:00 Active Lactated Ringers [Ringers, Lactated] 1,000 ml Med 10/04/18 07:00 Active IV ASDIRECTED Lidocaine 1%/Sod Bicarbonate [Buffered Lidocaine 1% in Med 10/04/18 07:00 Active NS 8.4%] 0.25 ml IDERM ONETIME PRN Sodium Chloride 0.9% [Saline Flush] Med 10/04/18 07:00 Active 10 ml FLUSH ASDIRECTED PRN Medication Administration Instruction [OM.PC] Routine Oth 10/04/18 07:00 Ordered Peripheral IV Insertion Adult [OM.PC] Routine Oth 10/04/18 07:00 Ordered Medication Orders Lactated Ringer's (Ringers, Lactated) 1,000 mls @ 125 mls/hr IV ASDIRECTED SHERLY Stop: 10/04/18 23:00 Lidocaine/Sodium Bicarbonate (Buffered Lidocaine 1% In Ns 8.4%) 0.25 ml IDERM ONETIME PRN PRN Reason: Prior to IV Start Stop: 10/04/18 23:00 Sodium Chloride (Saline Flush) 10 ml FLUSH ASDIRECTED PRN PRN Reason: Keep Vein Open Stop: 10/04/18 23:00 Assessment/Plan Comment:: 47yr male with adenomatous colon polyp, hx of rectal condyloma acuminata, need for surveillance colonoscopy with possible polypectomy, possible biopsies Patient can perform 4 METS of physical activity without chest pain or shortness of breath. PLAN: We discussed performing a surveillance colonoscopy with possible polypectomy, possible biopsies. We discussed the procedure and post operative expectations. This procedure will be done at [facility] due to cardiac hx , mechanical valve, chronic anticoagulation INR to be drawn today prior to procedure. Anticoagulation clinic to direct bridging/Coumadin resumption post procedure. I personally reviewed the patient's previous medical records and laboratory studies. Patient verbalized understanding and agreed with care plan. RAYMON Mccormack General Surgery Department [facility]
[~2018-10-04 08:30] MED LIST: Lactated Ringers 0 ML ONE; Lactated Ringers 1,000 ML IV SCH; Lidocaine 1% 6 ML ONE; Lidocaine 1%/Sod Bicarbonate in NS 8.4% 1 ML Syringe IDERM PRN; Propofol 200 MG/20 ML SDV ONE; Sodium Chloride 0.9% 10 ML Syringe FLUSH PRN; fentaNYL 100 MCG/2 ML SDV ONE
[2018-10-04] MEDS ORDERED: Propofol 200 MG/20 ML SDV ONE (09:58)
[2018-10-04] MEDS ORDERED: Lactated Ringers 1,000 ML ONE (10:00)
--- NOTE | 2018-10-04 10:44 | PCM.OPNOTE ---
- General Post-Op/Procedure Note Date of Surgery/Procedure: 10/04/18 Operative Procedure(s): colonoscopy Findings: 1. Ascending colon polyp 2. Descending colon polyp 3. Sigmoid colon polyp x4 4. Rectal polyp x3 Pre Op Diagnosis: history of adenomatous colon polyp Post-Op Diagnosis: same Anesthesia Technique: MAC Primary Surgeon: Zhanna Sams Anesthesia Provider: Devika Elizabeth Pathology: 1. Ascending colon polyp 2. Descending colon polyp 3. Sigmoid colon polyp x4 4. Rectal polyp x3 Fluid Replacement, Intraop: 1,400 Output, Urine Amount: 0 EBL in mLs: 0 Complications: none apparent
--- NOTE | 2018-10-04 10:45 | PCM.PRNOTE ---
- Free Text/Narrative Note: Operative Report Date of Surgery/Procedure: October 04, 2018 Operative Procedure: Colonoscopy to cecum Pre Op Diagnosis: History of adenomatous colon polyp Post-Op Diagnosis: . Same Surgeon: Zhanna Sams MD Anesthesia Technique: MAC Anesthesia Provider: Devika Elizabeth CRNA IV Fluid Replacement, Intraop: 1400cc Output, Urine Amount: 0cc EBL : 0cc Findings: 1. Ascending colon polyp 2. Descending colon polyp 3. Sigmoid colon polyp x4 4. Rectal polyp x3 Specimens: 1. Ascending colon polyp 2. Descending colon polyp 3. Sigmoid colon polyp x4 4. Rectal polyp x3 Indication: The patient is a 48 year-old gentleman who presented to the outpatient clinic requesting colonoscopy. The patient has a history of adenomatous colon polyp We discussed the procedure of a colonoscopy including the polypectomy and biopsy. Risks of bleeding and perforation were discussed, the patient understood and wished to proceed. Written and consent was obtained Description of the procedure: The patient was brought to the endoscopy suite and placed in the left lateral decubitus position. Appropriate monitors were applied. The patient was given MAC anesthesia. An anorectal examination was performed, revealing no significant abnormalities. The scope was placed into the rectum and advanced to cecum with no difficulty. The patients cecum was entered, and the ileocecal valve and appendiceal orifice were identified and normal. At this point, the scope was withdrawn, paying careful attention to the mucosa. The patient had excellent bowel prep, allowing for visualization of 90-95% of the mucosa. A 4mm ascending colon polyp was noted. This was removed with jumbo biopsy forceps. A 3mm sessile polyp was seen in the descending colon and removed with jumbo biopsy forceps. Four sigmoid colon polyps were seen measuring 2-4mm and sessile ; these were removed using jumbo biopsy forceps. Three rectal polyps measuring 2 -3mm and flat were noted and removed with jumbo biopsy forceps. In the rectum, the scope was retroflexed and no additional abnormalities were noted, except for some hemorrhoidal tissue. The scope was placed back in the lumen and the excess air was aspirated. The patient tolerated the procedure well. Complications: none apparent Condition: Good, transported to PACU in stable condition Zhanna Sams MD General Surgery
--- NOTE | 2018-10-04 10:45 | PCM48HPAN ---
Post Anesthesia Note - EVALUATION WITHIN 48HRS OF ANESTHETIC Vital Signs in Normal Range: Yes Patient Participated in Evaluation: Yes Respiratory Function Stable: Yes Airway Patent: Yes Cardiovascular Function Stable: Yes Hydration Status Stable: Yes Pain Control Satisfactory: Yes Nausea and Vomiting Control Satisfactory: Yes Mental Status Recovered: Yes
[2018-10-04 10:46] VITALS: BP 94/56
== END 2018-10-04 11:14 | disposition home or self-care (01) ==
LOC: JD.SDS 08:30
PROVIDERS: ATTEND Surgery
DX: Z12.11 Encounter for screening for malignant neoplasm of colon (principal); D12.2 Benign neoplasm of ascending colon; D12.4 Benign neoplasm of descending colon; K63.5 Polyp of colon; K62.1 Rectal polyp; A63.0 Anogenital (venereal) warts; I35.0 Nonrheumatic aortic (valve) stenosis; I10 Essential (primary) hypertension; F17.210 Nicotine dependence, cigarettes, uncomplicated; Z79.01 Long term (current) use of anticoagulants; Z79.899 Other long term (current) drug therapy
CPT/HCPCS: 36415; 45380; 85610; J2001; J2704; J3010; J7120; 00812

== ENCOUNTER 2018-11-21 16:40 | Emergency (ER) | payer BC ==
--- NOTE | 2018-11-21 17:22 | EDM.PDOC ---
ED HPI GENERAL MEDICAL PROBLEM - General Chief Complaint: Chest Pain Stated Complaint: UNUSUAL CHEST PAIN Time Seen by Provider: 11/21/18 16:55 Source of Information: Reports: Patient History Limitations: Reports: No Limitations - History of Present Illness INITIAL COMMENTS - FREE TEXT/NARRATIVE: The patient presents with chest pain. He says the pain feels like a muscle cramp. This pain radiates to his back. The pain is gone now. It only lasted a few minutes. He has no shortness of breath, fever, chills or cough. He has no abdominal pain, nausea or vomiting. He has a history of mitral valve replacement a few years ago by Dr White. He had a heart cath that showed clear coronary arteries then. He has no swelling or pain in his legs. Onset: Gradual Duration: Hour(s): Location: Reports: Chest Quality: Reports: Other (Cramp) Severity: Mild Improves with: Reports: None Worsens with: Reports: None Associated Symptoms: Reports: Chest Pain. Denies: Cough, Fever/Chills, Headaches, Nausea/Vomiting, Shortness of Breath Chest Pain Score (Numeric/FACES): 3 - Related Data Allergies Allergy/AdvReac Type Severity Reaction Status Date / Time No Known Allergies Allergy Verified 11/21/18 16:52 Home Meds: Home Meds Warfarin [Coumadin] 6 mg PO MOFR 10/23/17 [History] Metoprolol Succinate 25 mg PO DAILY 10/03/18 [History] Warfarin [Coumadin] 4 mg PO SUTUWETHSA 10/03/18 [History] Past Medical History HEENT History: Reports: None Cardiovascular History: Reports: Heart Valve Replacement Other Cardiovascular History: aortic stenosis, valvular heart disease, aortic regurgitation, is on coumadin Respiratory History: Reports: Other (See Below) Other Respiratory History: lung cancer at age 3 Gastrointestinal History: Reports: Colon Polyp Other Gastrointestinal History: globus sensation, rectal conyloma acuminata, ischemic hepatis Genitourinary History: Reports: Dialysis Other Genitourinary History: 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, acute renal failure 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 Musculoskeletal History: Reports: None Neurological History: Reports: Seizure Psychiatric History: Reports: Addiction, Anxiety Other Psychiatric History: history of alcoholism Endocrine/Metabolic History: Reports: Other (See Below) Other Endocrine/Metabolic History: 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3 Hematologic History: Reports: Anticoagulation Therapy Immunologic History: Reports: None Oncologic (Cancer) History: Reports: Lung, Renal Other Oncologic History: 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 Kidney was removed. Neurological Surgical History: Reports: None Musculoskeletal Surgical History: Reports: None Dermatological Surgical History: Reports: None Social & Family History - Family History Family Medical History: Noncontributory - Tobacco Use Smoking Status *Q: Never Smoker - Caffeine Use Caffeine Use: Reports: Coffee - Recreational Drug Use Recreational Drug Use: No ED ROS GENERAL - Review of Systems Review Of Systems: See Below Constitutional: Reports: No Symptoms HEENT: Reports: No Symptoms Respiratory: Reports: No Symptoms Cardiovascular: Reports: Chest Pain Endocrine: Reports: No Symptoms GI/Abdominal: Reports: No Symptoms : Reports: No Symptoms Musculoskeletal: Reports: No Symptoms ED EXAM, GENERAL - Physical Exam Exam: See Below Exam Limited By: No Limitations General Appearance: Alert, No Apparent Distress Ears: Normal External Exam Nose: Normal Inspection Head: Atraumatic, Normocephalic Neck: Normal Inspection Respiratory/Chest: No Respiratory Distress, Lungs Clear, Normal Breath Sounds, Other (Scar down the sternum) Cardiovascular: Regular Rate, Rhythm, No Edema, No Murmur GI/Abdominal: Soft, Non-Tender, No Organomegaly, No Mass Course - Vital Signs Last Recorded V/S: Last Vital Signs Temp 98.9 F 11/21/18 16:50 Pulse 89 11/21/18 16:50 Resp 16 11/21/18 16:50 BP 136/84 11/21/18 16:50 Pulse Ox 100 11/21/18 16:50 - Orders/Labs/Meds Orders: Active Orders 24 hr Category Date Time Status Cardiac Monitoring [RC] . DIRECTED Care 11/21/18 17:07 Active EKG 12 Lead [EKG Documentation Completion] [RC] STAT Care 11/21/18 16:56 Active Chest 2V [CR] Stat Exams 11/21/18 17:08 Taken Labs: Laboratory Tests 11/21/18 11/21/18 Range/Units 17:24 17:24 WBC 9.08 H (4.23-9.07) K/mm3 RBC 4.59 L (4.63-6.08) M/mm3 Hgb 14.1 (13.7-17.5) gm/L Hct 41.4 (40.1-51.0) % MCV 90.2 (79.0-92.2) fl MCH 30.7 (25.7-32.2) pg MCHC 34.1 (32.2-35.5) g/dl RDW Std Deviation 44.4 H (35.1-43.9) fL Plt Count 299 D (163-337) K/mm3 MPV 10.4 (9.4-12.3) fl Neut % (Auto) 59.4 (34.0-67.9) % Lymph % (Auto) 27.3 (21.8-53.1) % Culberson % (Auto) 11.9 (5.3-12.2) % Eos % (Auto) 0.9 (0.8-7.0) Baso % (Auto) 0.4 (0.1-1.2) % Neut # (Auto) 5.39 H (1.78-5.38) K/mm3 Lymph # (Auto) 2.48 (1.32-3.57) K/mm3 [place]berson # (Auto) 1.08 H (0.30-0.82) K/mm3 Eos # (Auto) 0.08 (0.04-0.54) K/mm3 Baso # (Auto) 0.04 (0.01-0.08) K/mm3 Sodium 136 (136-145) mEq/L Potassium 4.0 (3.5-5.1) mEq/L Chloride 100 (98-107) mEq/L Carbon Dioxide 27 (21-32) mEq/L Anion Gap 13.0 (5-15) BUN 27 H (7-18) mg/dL Creatinine 1.3 (0.7-1.3) mg/dL Est Cr Clr Drug Dosing 61.74 mL/min Estimated GFR (MDRD) 59 (>60) mL/min BUN/Creatinine Ratio 20.8 H (14-18) Glucose 83 (74-106) mg/dL Calcium 9.0 (8.5-10.1) mg/dL Total Bilirubin 0.7 (0.2-1.0) mg/dL AST 37 (15-37) U/L ALT 21 (16-63) U/L Alkaline Phosphatase 54 (46-116) U/L Troponin I < 0.017 (0.00-0.056) ng/mL Total Protein 7.6 (6.4-8.2) g/dl Albumin 3.8 (3.4-5.0) g/dl Globulin 3.8 gm/dL Albumin/Globulin Ratio 1.0 (1-2) - Re-Assessments/Exams Free Text/Narrative Re-Assessment/Exam: 11/21/18 17:24 I ordered an EKG, CXR and labs. 11/21/18 18:17 His EKG shows a NSR with no acute changes and no change from prior. His CXR looks good. His CBC and CMP looks good. His troponin is negative. Departure - Departure Time of Disposition: 18:20 Disposition: Home, Self-Care 01 Condition: Good Clinical Impression: Atypical chest pain Referrals: Melvin Petty MD [Primary Care Provider] - Forms: ED Department Discharge Additional Instructions: Please return if you are worse. - My Orders Last 24 Hours: My Active Orders 11/21/18 16:56 EKG 12 Lead [EKG Documentation Completion] [RC] STAT 11/21/18 17:07 Cardiac Monitoring [RC] . DIRECTED 11/21/18 17:08 Chest 2V [CR] Stat - Assessment/Plan Last 24 Hours: My Active Orders 11/21/18 16:56 EKG 12 Lead [EKG Documentation Completion] [RC] STAT 11/21/18 17:07 Cardiac Monitoring [RC] . DIRECTED 11/21/18 17:08 Chest 2V [CR] Stat
[2018-11-21 18:37] VITALS: BP 133/77
--- NOTE | 2018-11-22 09:00 | CR ---
Chest: Two views of the chest were obtained. Comparison: Prior chest x-ray of 11/23/15. Heart size and mediastinum are normal. Lung markings are mildly increased. These appear to be stable from prior exam which I believe are most likely chronic. Previous sternotomy is noted with prosthetic heart valve. Multiple surgical clips are seen within the left upper abdomen. Mild degenerative change is seen within the spine. Impression: 1. Increased central lung markings which are most likely chronic. 2. Previous sternotomy as well as abdominal surgery. Nothing acute is definitely appreciated. Diagnostic code #3
== END 2018-11-21 18:33 | disposition home or self-care (01) ==
LOC: JD.ED 16:40
DX: R07.89 Other chest pain (principal); Z79.899 Other long term (current) drug therapy; Z79.01 Long term (current) use of anticoagulants
CPT/HCPCS: 36415; 71046; 71046-26; 80053; 84484; 85025; 93005; 93010; 99284; 99285-25

== ENCOUNTER 2019-07-11 12:33 | Emergency (ER) | payer BC ==
[2019-07-11 12:49] VITALS: BP 137/90; PULSE 102
[2019-07-11] MEDS ORDERED: Ondansetron 4 MG/2 ML SDV IVPUSH ONE (12:56)
[2019-07-11] MEDS ORDERED: Sodium Chloride 0.9% 10 ML Syringe FLUSH PRN (12:56)
[2019-07-11] MEDS ORDERED: Sodium Chloride 0.9% 1,000 ML IV SCH (13:00)
--- NOTE | 2019-07-11 15:01 | EDM.PDOCBH ---
ED HPI GENERAL MEDICAL PROBLEM - General Chief Complaint: Drug or Alcohol Abuse Stated Complaint: ALCOHOL DETOX Time Seen by Provider: 07/11/19 12:50 Source of Information: Reports: Patient History Limitations: Reports: No Limitations - History of Present Illness INITIAL COMMENTS - FREE TEXT/NARRATIVE: The patient presents from the [facility] for intoxication. The patient has a history of alcohol dependency but he has been sober for 15 months. A good friend of his 5 days ago and the patient started drinking again. He has a history of aortic valve replacement and is on coumadin. He went to get his INR checked and he was intoxicated. Dr Fernandez called and wanted him checked here. His INR was elevated at 8.4. He last drank about 3 hours before arrival. He did not use any drugs. He has no fever, chills, cough, chest pain , shortness of breath, abdominal pain, nausea or vomiting. Onset: Gradual Duration: Day(s): (5) Improves with: Reports: None Worsens with: Reports: None Associated Symptoms: Reports: No Other Symptoms - Related Data Allergies Allergy/AdvReac Type Severity Reaction Status Date / Time No Known Allergies Allergy Verified 07/11/19 12:49 Home Meds: Home Meds Warfarin [Coumadin] 6 mg PO MOFR 10/23/17 [History] Metoprolol Succinate 25 mg PO DAILY 10/03/18 [History] Warfarin [Coumadin] 4 mg PO SUTUWETHSA 10/03/18 [History] LORazepam [Ativan] 1 mg PO DAILY #18 tablet 07/11/19 [Rx] Ondansetron [Zofran ODT] 4 mg PO Q6H PRN #20 tab.dis 07/11/19 [Rx] Past Medical History HEENT History: Reports: None Cardiovascular History: Reports: Heart Valve Replacement Other Cardiovascular History: aortic stenosis, valvular heart disease, aortic regurgitation, is on coumadin Respiratory History: Reports: Other (See Below) Other Respiratory History: lung cancer at age 3, "Wilm's tumor." Gastrointestinal History: Reports: Colon Polyp Other Gastrointestinal History: globus sensation, rectal conyloma acuminata, ischemic hepatis Genitourinary History: Reports: Dialysis Other Genitourinary History: 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, acute renal failure [employer] History: Reports: None Musculoskeletal History: Reports: None Neurological History: Reports: Seizure Psychiatric History: Reports: Addiction, Anxiety Other Psychiatric History: history of alcoholism Endocrine/Metabolic History: Reports: Other (See Below) Other Endocrine/Metabolic History: Wilm tumor with 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3 Hematologic History: Reports: Anticoagulation Therapy Immunologic History: Reports: None Oncologic (Cancer) History: Reports: Lung, Renal Other Oncologic History: 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 Kidney was removed. Neurological Surgical History: Reports: None Musculoskeletal Surgical History: Reports: None Dermatological Surgical History: Reports: None Social & Family History - Family History Family Medical History: Noncontributory - Tobacco Use Smoking Status *Q: Never Smoker Second Hand Smoke Exposure: No - Caffeine Use Caffeine Use: Reports: Coffee, Energy Drinks - Recreational Drug Use Recreational Drug Use: No ED ROS GENERAL - Review of Systems Review Of Systems: See Below Constitutional: Reports: No Symptoms HEENT: Reports: No Symptoms Respiratory: Reports: No Symptoms Cardiovascular: Reports: No Symptoms Endocrine: Reports: No Symptoms GI/Abdominal: Reports: No Symptoms : Reports: No Symptoms Musculoskeletal: Reports: No Symptoms ED EXAM, BEHAVIORAL HEALTH - Physical Exam Exam: See Below Exam Limited By: Intoxication General Appearance: Alert, No Apparent Distress Ears: Normal External Exam Nose: Normal Inspection Head: Atraumatic, Normocephalic Neck: Normal Inspection Respiratory/Chest: No Respiratory Distress, Lungs Clear, Normal Breath Sounds Cardiovascular: Regular Rate, Rhythm, No Edema, No Murmur GI/Abdominal: Soft, Non-Tender, No Organomegaly, No Mass Back Exam: Normal Inspection Extremities: Normal Inspection Neurological: Alert, No Motor/Sensory Deficits, Oriented x 3 COURSE, BEHAVIORAL HEALTH COMP - Course Vital Signs: Last Vital Signs Temp 98.8 F 07/11/19 12:44 Pulse 102 H 07/11/19 12:44 Resp 22 H 07/11/19 12:44 BP 137/90 07/11/19 12:44 Pulse Ox 98 07/11/19 12:44 Orders, Labs, Meds: Active Orders 24 hr Category Date Time Status Cardiac Monitoring [RC] . DIRECTED Care 07/11/19 12:56 Active Peripheral IV Care [RC] . DIRECTED Care 07/11/19 12:56 Active Sodium Chloride 0.9% [Normal Saline] 1,000 ml Med 07/11/19 13:00 Active IV .BOLUS Sodium Chloride 0.9% [Saline Flush] Med 07/11/19 12:56 Active 10 ml FLUSH ASDIRECTED PRN Peripheral IV Insertion Adult [OM.PC] Stat Oth 07/11/19 12:56 Ordered Medication Orders Sodium Chloride (Normal Saline) 1,000 mls @ 1,000 mls/hr IV .BOLUS SHERLY Last Admin: 07/11/19 13:50 Dose: 1,000 mls/hr Sodium Chloride (Saline Flush) 10 ml FLUSH ASDIRECTED PRN PRN Reason: Keep Vein Open Last Admin: 07/11/19 13:36 Dose: 10 ml Laboratory Tests 07/11/19 07/11/19 Range/Units 13:36 13:36 WBC 7.02 (4.23-9.07) K/mm3 RBC 4.88 (4.63-6.08) M/mm3 Hgb 15.1 (13.7-17.5) gm/dl Hct 44.6 (40.1-51.0) % MCV 91.4 (79.0-92.2) fl MCH 30.9 (25.7-32.2) pg MCHC 33.9 (32.2-35.5) g/dl RDW Std Deviation 50.1 H (35.1-43.9) fL Plt Count 301 (163-337) K/mm3 MPV 10.3 (9.4-12.3) fl Neut % (Auto) 68.4 H (34.0-67.9) % Lymph % (Auto) 22.2 (21.8-53.1) % [place] % (Auto) 8.8 (5.3-12.2) % Eos % (Auto) 0.1 L (0.8-7.0) Baso % (Auto) 0.4 (0.1-1.2) % Neut # (Auto) 4.79 (1.78-5.38) K/mm3 Lymph # (Auto) 1.56 (1.32-3.57) K/mm3 [place] # (Auto) 0.62 (0.30-0.82) K/mm3 Eos # (Auto) 0.01 L (0.04-0.54) K/mm3 Baso # (Auto) 0.03 (0.01-0.08) K/mm3 Sodium 140 (136-145) mEq/L Potassium 4.0 (3.5-5.1) mEq/L Chloride 99 (98-107) mEq/L Carbon Dioxide 31 (21-32) mEq/L Anion Gap 14.0 (5-15) BUN 21 H (7-18) mg/dL Creatinine 1.1 (0.7-1.3) mg/dL Est Cr Clr Drug Dosing 72.96 mL/min Estimated GFR (MDRD) > 60 (>60) mL/min BUN/Creatinine Ratio 19.1 H (14-18) Glucose 130 H (74-106) mg/dL Calcium 8.6 (8.5-10.1) mg/dL Total Bilirubin 0.5 (0.2-1.0) mg/dL AST 74 H (15-37) U/L ALT 49 (16-63) U/L Alkaline Phosphatase 84 (46-116) U/L Total Protein 8.8 H (6.4-8.2) g/dl Albumin 4.0 (3.4-5.0) g/dl Globulin 4.8 gm/dL Albumin/Globulin Ratio 0.8 L (1-2) Lipase 99 (73-393) U/L Ethyl Alcohol 0.46 (0.00) gm% Medications Generic Name Dose Route Start Last Admin Trade Name Freq PRN Reason Stop Dose Admin Sodium Chloride 1,000 mls @ 1,000 mls/hr 07/11/19 13:00 07/11/19 13:50 Normal Saline IV 1,000 mls/hr .BOLUS SHERLY Administration Sodium Chloride 10 ml 07/11/19 12:56 07/11/19 13:36 Saline Flush FLUSH 10 ml ASDIRECTED PRN Administration Keep Vein Open Discontinued Medications Generic Name Dose Route Start Last Admin Trade Name Freq PRN Reason Stop Dose Admin Ondansetron HCl 4 mg 07/11/19 12:56 07/11/19 13:45 Zofran IVPUSH 07/11/19 12:57 4 mg ONETIME ONE Administration Re-Assessment/Re-Exam: i ordered an IV NS bolus, zofran 4mg IV, and labs. His CBC looks good. His glucose is 130. His AST is elevated at 74. His lipase was normal. His ETOH is elevated at 0.46. He is resting now. I examined him again. He is doing good. He does not like to stay. His INR is elevated to 8.4. I will have him hold his coumadin for the next 2 days. Departure - Departure Time of Disposition: 17:00 Disposition: Home, Self-Care 01 Condition: Good Clinical Impression: Supratherapeutic INR, Alcohol abuse Alcohol intoxication Qualifiers: Complication of substance-induced condition: uncomplicated Qualified Code(s): F10.920 - Alcohol use, unspecified with intoxication, uncomplicated - Discharge Information *PRESCRIPTION DRUG MONITORING PROGRAM REVIEWED*: No *COPY OF PRESCRIPTION DRUG MONITORING REPORT IN PATIENT JOSE: No Prescriptions: LORazepam [Ativan] 1 mg PO DAILY #18 tablet Ondansetron [Zofran ODT] 4 mg PO Q6H PRN #20 tab.dis PRN Reason: Nausea\\vomiting Referrals: Melvin Petty MD [Primary Care Provider] - 1 Week Additional Instructions: Stop drinking. Drink plenty of fluids. Take the ativan as prescribed and the zofran. Call [facility] at for help stopping drinking. Please return if you are worse. Do not take your coumadin for 2 days. Sepsis Event Note - Evaluation Sepsis Screening Result: No Definite Risk - Focused Exam Vital Signs: Vital Signs Temp Pulse Resp BP Pulse Ox 07/11/19 12:44 98.8 F 102 H 22 H 137/90 98 Date Exam was Performed: 07/11/19 Time Exam was Performed: 16:51 - My Orders Last 24 Hours: My Active Orders 07/11/19 12:56 Cardiac Monitoring [RC] . DIRECTED Peripheral IV Care [RC] . DIRECTED Sodium Chloride 0.9% [Saline Flush] 10 ml FLUSH ASDIRECTED PRN Peripheral IV Insertion Adult [OM.PC] Stat 07/11/19 13:00 Sodium Chloride 0.9% [Normal Saline] 1,000 ml IV .BOLUS - Assessment/Plan Last 24 Hours: My Active Orders 07/11/19 12:56 Cardiac Monitoring [RC] . DIRECTED Peripheral IV Care [RC] . DIRECTED Sodium Chloride 0.9% [Saline Flush] 10 ml FLUSH ASDIRECTED PRN Peripheral IV Insertion Adult [OM.PC] Stat 07/11/19 13:00 Sodium Chloride 0.9% [Normal Saline] 1,000 ml IV .BOLUS
== END 2019-07-11 17:14 | disposition home or self-care (01) ==
LOC: JD.ED 12:33
DX: F10.120 Alcohol abuse with intoxication, uncomplicated (principal); Y90.2 Blood alcohol level of 40-59 mg/100 ml; R79.1 Abnormal coagulation profile; F41.9 Anxiety disorder, unspecified; Z79.01 Long term (current) use of anticoagulants; Z79.899 Other long term (current) drug therapy; Z85.118 Personal history of other malignant neoplasm of bronchus and lung; Z90.5 Acquired absence of kidney
CPT/HCPCS: 36415; 80053; 80307; 83690; 85025; 96361; 96374; 99284; J2405; J7030

== ENCOUNTER 2019-11-04 21:00 | Emergency (ER) | payer BC ==
[2019-11-04 21:19] VITALS: BP 143/81; PULSE 99
== END 2019-11-04 21:50 ==
LOC: JD.ED 21:00
DX: Z53.21 Procedure and treatment not carried out due to patient leaving prior to being seen by health care provider (principal)

== ENCOUNTER → 2022-01-18 | Day surgery (SDC) | payer BC ==
[~2022-01-18] MED LIST changes: -Lactated Ringers 0 ML ONE; +Lidocaine 1% 4 ML ONE; -Lidocaine 1% 6 ML ONE; +Sodium Chloride 0.9% 10 ML Syringe FLUSH SCH; -fentaNYL 100 MCG/2 ML SDV ONE
[2022-01-18 11:36] VITALS: BP 103/61; PULSE 67
== END | disposition home or self-care (01) ==
LOC: JD.SDS 07:29
PROVIDERS: ATTEND Surgery
DX: Z12.11 Encounter for screening for malignant neoplasm of colon (principal); D12.2 Benign neoplasm of ascending colon; D12.4 Benign neoplasm of descending colon; F41.9 Anxiety disorder, unspecified; Z87.891 Personal history of nicotine dependence; Z98.890 Other specified postprocedural states; Z79.02 Long term (current) use of antithrombotics/antiplatelets
CPT/HCPCS: 36415; 45380; 85610; J2704; J7120; 00812

== ENCOUNTER 2022-04-22 11:08 | Emergency (ER) | payer BC ==
[2022-04-22 11:18] VITALS: BP 145/81; PULSE 81
[2022-04-22] MEDS ORDERED: Lidocaine 1% 10 ML MDV INJECT ONE (11:58)
[2022-04-22] MEDS ORDERED: Lidocaine 1% 10 ML MDV ONE (12:35)
[2022-04-22] MEDS ORDERED: Amoxicillin/Clavulanate K 875-125 MG Tab PO ONE (13:38)
== END 2022-04-22 14:45 | disposition left against medical advice (07) ==
LOC: JD.ED 11:08
DX: S02.40CA Maxillary fracture, right side, initial encounter for closed fracture (principal); S01.21XA Laceration without foreign body of nose, initial encounter; S01.511A Laceration without foreign body of lip, initial encounter; S01.411A Laceration without foreign body of right cheek and temporomandibular area, initial encounter; Z79.01 Long term (current) use of anticoagulants; W18.09XA Striking against other object with subsequent fall, initial encounter; Y99.0 Civilian activity done for income or pay
CPT/HCPCS: 12013; 70450; 70450-26; 70486; 70486-26; 99283

== ENCOUNTER 2022-09-08 21:06 | Emergency (ER) | payer BC ==
[2022-09-08 23:41] VITALS: BP 132/75; PULSE 99
== END 2022-09-08 23:15 | disposition home or self-care (01) ==
LOC: JD.ED 21:06
DX: F10.229 Alcohol dependence with intoxication, unspecified (principal); Y90.8 Blood alcohol level of 240 mg/100 ml or more; Z79.01 Long term (current) use of anticoagulants
CPT/HCPCS: 36415; 80053; 80307; 85025; 99283; 99284